=== PATIENT | female | born 1950 | race Caucasian/White ===

== ENCOUNTER 2016-04-15 17:55 | Emergency (ER) | payer OTHER ==
[~2016-04-15] VITALS: Ht 165.1 cm; Wt 77.5 kg
[~2016-04-15 17:55] MED LIST changes: -MULT-506 PO
[2016-04-15 18:20] VITALS: TEMP 37; Ht 165.1 cm; Wt 77.5 kg
[2016-04-15] MEDS ORDERED: ONDANSETRON INJ 2 MG/ML 2 ML VIAL IV STA (18:40)
[2016-04-15] MEDS ORDERED: OPTIRAY 320 IV PRN (18:45)
[2016-04-15 18:57] LABS: BASO % 0.2 %; BASO ABS # 0.02 K/uL (0-0.2); COMPLETE YES; EOS % 1.6 %; HEMATOCRIT 43.3 % (37-47); IG% 0.2 %; LYMPH % 25.5 %; LYMPH ABS # 2.44 K/uL (1.2-3.4); MEAN CORPUSCULAR HEMOGLOBIN 30.5 pg (25-34); MEAN CORPUSCULAR HGB CONC 33.5 g/dl (32-36); MEAN PLATELET VOLUME 9.7 fL (7.4-10.4); MONO % 9.9 %; NEUT % 62.6 %; PLATELET COUNT 314 K/uL (130-400); RED BLOOD COUNT 4.76 M/uL (4.2-5.4); WHITE BLOOD COUNT 9.58 K/uL (4.8-10.8)
[2016-04-15 19:19] LABS: ALT/SGPT 19 U/L (12-78); BLOOD UREA NITROGEN 13 mg/dl (7-18); CALCIUM 10.1 mg/dl (8.5-10.1); CARBON DIOXIDE 27 mmol/L (21-32); CHLORIDE 103 mmol/L (98-107); GLUCOSE 90 mg/dl (70-99); POTASSIUM 3.4 mmol/L (3.5-5.1); SODIUM 140 mmol/L (136-145)
[2016-04-15 19:22] LABS: ALKALINE PHOSPHATASE 90 U/L (45-117); AST/SGOT 19 U/L (15-37)
--- NOTE | 2016-04-15 21:57 | DIAGNOSTIC IMAGING REPORT ---
CT OF THE ABDOMEN AND PELVIS WITH CONTRAST CLINICAL HISTORY: Left-sided abdominal pain. Possible bowel obstruction. Abnormal abdominal series. COMPARISON STUDY: CT of the abdomen and pelvis June 06, 2012 and abdominal series performed earlier today. TECHNIQUE: Following IV administration of 115 mL of Optiray-320, axial images of the abdomen and pelvis were obtained from the lung bases to the proximal femurs. Images were reviewed in the axial, sagittal, and coronal planes. IV contrast was administered without complication. Oral contrast was administered. CT DOSE: 433.32 mGy.cm FINDINGS: No pneumatosis, free air or portal venous gas is present. There are a few small gallstones within the gallbladder. The gallbladder is mildly distended. There is no pericholecystic infiltration. The liver, spleen, adrenal glands, kidneys and pancreas are unremarkable. There is no biliary or pancreatic ductal dilatation. Caliber and wall thickness of small and large bowel are normal. The apparent loop of dilated small bowel on prior abdominal series likely reflected the colon. There is no ascites. There is no lymphadenopathy. 2.7 cm enhancing lesion within the uterine fundus has decreased in size since prior exams. This is consistent with a fibroid. The appendix is not visualized. There is no lymphadenopathy or ascites. No suspicious skeletal lesions are identified. Previous left femoral internal fixation is incidentally noted. IMPRESSION: 1. No acute process within the abdomen or pelvis. No evidence of bowel obstruction. 2. Cholelithiasis with mild gallbladder distention. No pericholecystic infiltration. This could be correlated with right upper quadrant pain. Electronically signed by: Moose Maldonado M.D. 04/15/2016 9:55 PM Dictated Date/Time: 04/15/2016 9:48 PM
[2016-04-15] MEDS ORDERED: MULT-506 PO (23:02)
[2016-04-16 00:05] VITALS: BP 150/70; PULSE 65; O2SAT 97
[2016-04-16 00:19] LABS: URINE APPEARANCE CLEAR (CLEAR); URINE BILIRUBIN NEG (NEG); URINE COLOR YELLOW; URINE NITRITE NEG (NEG); URINE PH 5.5 (4.5-7.5); UROBILINOGEN NEG (NEG); ZZUR CULT IF INDIC CLEAN CATCH NO
[2016-04-16 00:44] LABS: MANUAL MICROSCOPIC REQUIRED? NO; REVIEW REQ? NO; URINE SPECIFIC GRAVITY >= 1.030 (1.000-1.030)
--- NOTE | 2016-04-16 02:52 | EMERGENCY ROOM VISIT NOTE ---
History Report prepared by Yadiel: Tico Cuevas Under the Supervision of: Dr. Jacinto Isaacs M.D. First contact with patient: 18:29 Chief Complaint: GI ASSESSMENT Stated Complaint: POSSIBLE BOWEL OBSTRUCTION Nursing Triage Summary: triage note: pt reports she has had diarrhea x 2 weeks. pt reports she saw her pcp and had blood work and x-rays and was called at approx 1730 and told to come to ed for possible bowel blockage. pt denies nausea or vomitting. History of Present Illness The patient is a 65 year old female who presents to the Emergency Room with complaints of constant episodes of diarrhea for the past two weeks. The patient currently rates her discomfort as a 7/10 in severity. The patient states that she has been having about 15-20 episodes of diarrhea per day for the past two days, and she states that the bowel movements are mostly water. The patient additionally states that she has some abdominal pain and nausea. The patient denies using any antibiotics recently, and she states that she has not been in the hospital recently. The patient additionally states that no one around her has been sick. Pt denies LOC, headache, fevers, chills, diaphoresis, visual changes, neck pain, chest pain, breathing difficulties, nausea, back pain, melena, hematochezia, urinary symptoms, numbness, weakness, lymphadenopathy, rash, or other complaints. Source of History: patient Onset: two weeks ago Position: other (global) Symptom Intensity: 7/10 Quality: other (diarrhea) Timing: constant Associated Symptoms: + abdominal pain, + nausea Review of Systems See HPI for pertinent positives and negatives. A total of ten systems were reviewed and were otherwise negative. Past Medical & Surgical Medical Problems: (1) Asthma (2) Benign hypertension (3) Closed fracture of left hip requiring operative repair (4) Hip fracture, left (5) History of appendectomy Family History Diabetes mellitus Heart disease Hypertension Kidney disease Kidney stones Social History Smoking Status: Never Smoker Alcohol Use: none Marital Status: Housing Status: lives with significant other Occupation Status: employed Current/Historical Medications Scheduled Alendronate/Cholecalciferol (Fosamax+D 70MG/2800 Iu), 1 TABLET PO WK Aspirin Enteric Coated (Ecotrin Or Generic), 81 MG PO QPM Cholecalciferol (Vitamin D3), 1 TAB PO QAM Escitalopram Oxalate (Lexapro), 5 MG PO QAM Esomeprazole Magnesium (Nexium), 40 MG PO QAM Fluticasone Prop/Salmeterol (Advair Diskus 500-50 Mcg/Dose), 1 PUFF INH BID Furosemide (Lasix), 20 MG PO QAM Levocetirizine Dihydrochloride (Levocetirizine Dihydrochl), 5 MG PO QPM Montelukast (Singulair *), 10 MG PO HS Multivitamin (Multivitamin), 1 TAB PO DAILY Potassium Chloride (K-Tab), 1 TAB PO QAM Theophylline Cont Rel (Uniphyl Controlled Rel), 400 MG PO BID Scheduled PRN Albuterol (Ventolin), 2 PUFFS INH QID PRN for Shortness of Breath Albuterol Soln (Proventil 0.083% 2.5MG/3ML), 2.5 MG INH for asthma Fluticasone Propionate (Flonase Nasal [place]), 2 SPRAYS RENÉE DAILY PRN for PRN Allergies Coded Allergies: Erythromycin (Verified Allergy, Mild, RASH, 04/15/16) Milk Protein Extract (Verified Allergy, Mild, RASH, 04/15/16) Tiotropium (Verified Allergy, Mild, RASH, 04/15/16) Amoxicillin (Verified Allergy, Unknown, GI UPSET, 04/15/16) Clavulanic Acid (Verified Allergy, Unknown, AUGMENTIN, 04/15/16) Ciprofloxacin (Verified Adverse Reaction, Mild, vomiting, 04/15/16) Quinolones (Verified Adverse Reaction, Mild, CIPRO-VOMITING, 04/15/16) Physical Exam Vital Signs Date Time Temp Pulse Resp B/P Pulse Ox O2 Delivery O2 Flow Rate FiO2 04/16/16 00:05 65 16 150/70 97 04/15/16 22:20 66 18 154/76 95 Room Air 04/15/16 20:20 66 16 164/84 98 04/15/16 19:31 72 04/15/16 18:20 37.0 85 18 155/89 97 Room Air Physical Exam GENERAL: Awake, alert, well-appearing, in no distress HENT: Normocephalic, atraumatic. Oropharynx unremarkable. EYES: Normal conjunctiva. Sclera non-icteric. NECK: Supple. No nuchal rigidity. FROM. No JVD. RESPIRATORY: Clear to auscultation. CARDIAC: Regular rate, normal rhythm. Extremities warm and well perfused. Pulses equal. ABDOMEN: Significant left upper quadrant tenderness with guarding and rebound. Soft, non-distended. No rebound or guarding. No masses. RECTAL: Deferred. MUSCULOSKELETAL: Chest examination reveals no tenderness. The back is symmetrical on inspection without obvious abnormality. There is no CVA tenderness to palpation. No joint edema. LOWER EXTREMITIES: Calves are equal size bilaterally and non-tender. No edema. No discoloration. NEURO: Normal sensorium. No sensory or motor deficits noted. SKIN: No rash or jaundice noted. Medical Decision & Procedures ER Provider Diagnostic Interpretation: CT scan results as stated below per my review and radiologist interpretation CT OF THE ABDOMEN AND PELVIS WITH CONTRAST CLINICAL HISTORY: Left-sided abdominal pain. Possible bowel obstruction. Abnormal abdominal series. COMPARISON STUDY: CT of the abdomen and pelvis June 06, 2012 and abdominal series performed earlier today. TECHNIQUE: Following IV administration of 115 mL of Optiray-320, axial images of the abdomen and pelvis were obtained from the lung bases to the proximal femurs. Images were reviewed in the axial, sagittal, and coronal planes. IV contrast was administered without complication. Oral contrast was administered. CT DOSE: 433.32 mGy.cm FINDINGS: No pneumatosis, free air or portal venous gas is present. There are a few small gallstones within the gallbladder. The gallbladder is mildly distended. There is no pericholecystic infiltration. The liver, spleen, adrenal glands, kidneys and pancreas are unremarkable. There is no biliary or pancreatic ductal dilatation. Caliber and wall thickness of small and large bowel are normal. The apparent loop of dilated small bowel on prior abdominal series likely reflected the colon. There is no ascites. There is no lymphadenopathy. 2.7 cm enhancing lesion within the uterine fundus has decreased in size since prior exams. This is consistent with a fibroid. The appendix is not visualized. There is no lymphadenopathy or ascites. No suspicious skeletal lesions are identified. Previous left femoral internal fixation is incidentally noted. IMPRESSION: 1. No acute process within the abdomen or pelvis. No evidence of bowel obstruction. 2. Cholelithiasis with mild gallbladder distention. No pericholecystic infiltration. This could be correlated with right upper quadrant pain. Electronically signed by: Moose Maldonado M.D. 04/15/2016 9:55 PM Dictated Date/Time: 04/15/2016 9:48 PM Laboratory Results 04/15/16 18:40 Red Blood Count 4.76, Mean Corpuscular Volume 91.0, Mean Corpuscular Hemoglobin 30.5, Mean Corpuscular Hemoglobin Concent 33.5, Mean Platelet Volume 9.7, Neutrophils (%) (Auto) 62.6, Lymphocytes (%) (Auto) 25.5, Monocytes (%) (Auto) 9.9, Eosinophils (%) (Auto) 1.6, Basophils (%) (Auto) 0.2, Neutrophils # (Auto) 6.00, Lymphocytes # (Auto) 2.44, Monocytes # (Auto) 0.95, Eosinophils # (Auto) 0.15, Basophils # (Auto) 0.02 04/15/16 18:40 Test 04/15/16 18:40 04/15/16 23:40 White Blood Count 9.58 K/uL (4.8-10.8) Red Blood Count 4.76 M/uL (4.2-5.4) Hemoglobin 14.5 g/dL (12.0-16.0) Hematocrit 43.3 % (37-47) Mean Corpuscular Volume 91.0 fL (80-100) Mean Corpuscular Hemoglobin 30.5 pg (25-34) Mean Corpuscular Hemoglobin Concent 33.5 g/dl (32-36) Platelet Count 314 K/uL (130-400) Mean Platelet Volume 9.7 fL (7.4-10.4) Neutrophils (%) (Auto) 62.6 % Lymphocytes (%) (Auto) 25.5 % Monocytes (%) (Auto) 9.9 % Eosinophils (%) (Auto) 1.6 % Basophils (%) (Auto) 0.2 % Neutrophils # (Auto) 6.00 K/uL (1.4-6.5) Lymphocytes # (Auto) 2.44 K/uL (1.2-3.4) Monocytes # (Auto) 0.95 K/uL (0.11-0.59) Eosinophils # (Auto) 0.15 K/uL (0-0.5) Basophils # (Auto) 0.02 K/uL (0-0.2) RDW Standard Deviation 43.6 fL (36.4-46.3) RDW Coefficient of Variation 13.2 % (11.5-14.5) Immature Granulocyte % (Auto) 0.2 % Immature Granulocyte # (Auto) 0.02 K/uL (0.00-0.02) Anion Gap 10.0 mmol/L (3-11) Est Creatinine Clear Calc Drug Dose 51.8 ml/min Estimated GFR () 60.6 Estimated GFR (Non- 52.3 BUN/Creatinine Ratio 12.0 (10-20) Calcium Level 10.1 mg/dl (8.5-10.1) Total Bilirubin 0.3 mg/dl (0.2-1) Direct Bilirubin < 0.1 mg/dl (0-0.2) Aspartate Amino Transf (AST/SGOT) 19 U/L (15-37) Alanine Aminotransferase (ALT/SGPT) 19 U/L (12-78) Alkaline Phosphatase 90 U/L (45-117) Total Protein 8.0 gm/dl (6.4-8.2) Albumin 4.1 gm/dl (3.4-5.0) Lipase 97 U/L (73-393) Urine Color YELLOW Urine Appearance CLEAR (CLEAR) Urine pH 5.5 (4.5-7.5) Urine Specific [place] >= 1.030 (1.000-1.030) Urine Protein NEG (NEG) Urine Glucose (UA) NEG (NEG) Urine Ketones NEG (NEG) Urine Occult Blood TRACE (NEG) Urine Nitrite NEG (NEG) Urine Bilirubin NEG (NEG) Urine Urobilinogen NEG (NEG) Urine Leukocyte Esterase NEG (NEG) Urine WBC (Auto) 1-5 /hpf (0-5) Urine RBC (Auto) 5-10 /hpf (0-4) Urine Hyaline Casts (Auto) 0 /lpf (0-5) Urine Epithelial Cells (Auto) 5-10 /lpf (0-5) Urine Bacteria (Auto) NEG (NEG) Date/Time Source Procedure Growth Status 04/15/16 20:30 Stool C.difficile Toxin B Gene (PCR) - Final No C. difficile toxin B gene detected Complete Laboratory results reviewed by me Medications Administered Medications (Trade) Dose Ordered Sig/Trent Route Start Time Stop Time Status Last Admin Dose Admin Ondansetron HCl (Zofran Inj) 4 mg NOW STAT IV 04/15/16 18:40 04/15/16 18:42 DC 1/19/17 19:20 4 MG ED Course 1835: The patient was evaluated in room C1. A complete history and physical exam was performed. 0: Zofran 4mg IV 0: I reevaluated the patient, and she was feeling better 8: I reevaluated the patient. Discussed results and discharge instructions: She verbalized understanding and agreement. The patient is ready for discharge. Medical Decision Triage Nursing notes reviewed. The patient's presentation and history were concerning for abdominal pain and possible obstruction seen on earlier x-ray. Etiologies such as appendicitis, diverticulitis, obstruction, inflammatory bowel disease, renal colic, PUD, biliary pathology, pancreatitis, mesenteric ischemia, aortic pathology, infections, genitourinary, UTI, perforated viscus, as well as others were entertained. The patient was evaluated. She declined analgesia. The patient was given Zofran and prepped for CT imaging. Her CBC, chemistry panel, LFTs and lipase were unremarkable. Urine dip was unremarkable. Stool samples were obtained. C. difficile was negative. Culture is pending. The patient and on CT imaging and this revealed no acute findings in the abdomen or pelvis. The patient was informed. I discussed conservative management with her. She agreed. She is going to follow up with her primary office tomorrow. The patient has a diarrheal illness and left- sided abdominal pain. If she worsens in any way she will be back to the emergency room for reevaluation. By the evaluation outlined above other emergent etiologies such as those listed in the differential, as well as others, were deemed relatively unlikely. The patient was informed about the findings as listed above. All questions were answered and she was pleased with the treatment. Return instructions were outlined and the patient was discharged in stable condition. The patient was referred to her PCP for follow-up tomorrow for a recheck of the current condition. The chart was completed utilizing [employer] Speech voice recognition software. Grammatical errors, random word insertions, pronoun errors, and incomplete sentences are an occasional consequence of this system due to software limitations, ambient noise, and hardware issues. Any formal questions or concerns about the content, text, or information contained within the body of this dictation should be directly addressed to the physician for clarification. Impression Primary Impression: Diarrhea Additional Impression: LUQ abdominal pain Scribe Attestation The scribe's documentation has been prepared under my direction and personally reviewed by me in its entirety. I confirm that the note above accurately reflects all work, treatment, procedures, and medical decision making performed by me. Departure Information Dispostion Home / Self-Care Referrals Sandro Morley PA-C (PCP) Forms HOME CARE DOCUMENTATION FORM, IMPORTANT VISIT INFORMATION Patient Instructions My [facility] Additional Instructions Imodium: This is available [id number]. Start out with two pills then take one after each loose bowel movement. You can take a maximum of 8 in one day. Only used as needed. Stop if you have bloody stools. Ibuprofen(Motrin, Advil) may be used for fever or pain. Use 600mg every six hours as needed. Take with food. Avoid using more than 2400mg in a 24 hour period. Do not use 2400mg per day for more than three consecutive days without physician direction. Prolonged inappropriate use can lead to stomach upset or ulcers. (AND/OR) Acetaminophen(Tylenol) may be used for fever or pain. Use 1000mg every six hours as needed. Avoid using more than 4000mg in a 24 hour period. Rest and drink plenty of fluids as tolerated. Slow sips of water or sports drinks are recommended instead of large amounts all at once. Continue current medications. Once your stomach is settled start with a clear liquid diet (jello, soup broth, etc.) and then advance as tolerated. You should avoid full, heavy meals for about 24 hrs from the time your symptoms resolved. Return to the ER immediately for worsening or persistent abdominal pain, vomiting, fevers, chest pains, difficulty breathing, black or bloody stools, worsening of your condition, or as needed. Follow up with your primary provider tomorrow for a recheck of your current condition. Problem Qualifiers
== END 2016-04-16 00:07 | disposition home or self-care (01) ==
LOC: C.EDB 17:56 → C.EDC 04-16 00:07
DX: R19.7 Diarrhea, unspecified (principal); J45.909 Unspecified asthma, uncomplicated; I10 Essential (primary) hypertension; Z83.3 Family history of diabetes mellitus; Z82.49 Family history of ischemic heart disease and other diseases of the circulatory system; Z79.82 Long term (current) use of aspirin; Z79.899 Other long term (current) drug therapy; R07.9 Chest pain, unspecified; K56.60 Unspecified intestinal obstruction

== ENCOUNTER → 2016-04-15 | Outpatient (CLI) | payer OTHER ==
[~2016-04-15] MED LIST: ADVIN50050 INH; ALBU0.08 INH; ALBUAER2 INH; ASPI81TA21 PO; CHOL1000 PO; DMX250; ESCI5TAB PO; FLUT50SP14 NAE; FSMD/70 PO; FURO-85 PO; IRON PO; LEVO-14 PO; MULT-506 PO; NXM/40 PO; POTA1TAB97 PO; PRED1SUS3; PRED1SUS3 OPR; SNG10 PO; TBROPO; TEMA15CA4 PO; THEO400T9 PO
[2016-04-15 15:24] LABS: BASO % 0.3 %; BASO ABS # 0.02 K/uL (0-0.2); COMPLETE YES; EOS % 2.1 %; IG% 0.1 %; LYMPH % 28.1 %; LYMPH ABS # 2.18 K/uL (1.2-3.4); MEAN CELL VOLUME 91.1 fL (80-100); MEAN CORPUSCULAR HEMOGLOBIN 30.3 pg (25-34); MEAN CORPUSCULAR HGB CONC 33.3 g/dl (32-36); MEAN PLATELET VOLUME 9.8 fL (7.4-10.4); MONO % 9.5 %; NEUT % 59.9 %; PLATELET COUNT 304 K/uL (130-400); RED BLOOD COUNT 4.72 M/uL (4.2-5.4); WHITE BLOOD COUNT 7.76 K/uL (4.8-10.8)
--- NOTE | 2016-04-15 15:29 | DIAGNOSTIC IMAGING REPORT ---
CHEST AND ABDOMEN 2 VIEWS HISTORY: Atypical chest pain. Left-sided abdominal pain. COMPARISON: Chest 02/09/2016. FINDINGS: The lungs are hyperexpanded with apical predominant emphysematous changes. No pleural effusions. No pneumothorax. The heart is normal in size. Mild loss of height at T7 remains unchanged. No pneumoperitoneum. No pneumatosis. Internal fixation of an old left hip fracture. There is a dilated loop of small bowel within the left side the abdomen. This measures up to 4.5 cm. There are few small fluid levels within the proximal colon. Remaining colon is decompressed. There are few distal loops of small bowel within the deep pelvis which are decompressed. IMPRESSION: Dilated small bowel within the left side of the abdomen. This likely represents a small bowel obstruction. Electronically signed by: Doron Richey M.D. 04/15/2016 3:27 PM Dictated Date/Time: 04/15/2016 3:21 PM
[2016-04-15 16:06] LABS: ALT/SGPT 19 U/L (12-78); BLOOD UREA NITROGEN 13 mg/dl (7-18); BUN/CREATININE RATIO 12.9 (10-20); CALCIUM 9.9 mg/dl (8.5-10.1); CARBON DIOXIDE 25 mmol/L (21-32); CHLORIDE 104 mmol/L (98-107); GLUCOSE 82 mg/dl (70-99); POTASSIUM 3.5 mmol/L (3.5-5.1); SODIUM 140 mmol/L (136-145)
[2016-04-15 16:17] LABS: ALKALINE PHOSPHATASE 81 U/L (45-117); AST/SGOT 19 U/L (15-37)
== END | disposition home or self-care (01) ==
LOC: C.RAD1850 14:36
PROVIDERS: ATTEND Internal Medicine Pulmonary Disease
DX: R07.9 Chest pain, unspecified (principal); R10.9 Unspecified abdominal pain; K56.60 Unspecified intestinal obstruction

== ENCOUNTER → 2016-06-18 | Outpatient (CLI) | payer OTHER ==
[~2016-06-18] MED LIST changes: -DMX250; -IRON PO; +MULT-506 PO; -PRED1SUS3; -PRED1SUS3 OPR; +SINCALIDE INJ 1.5 MCG in SODIUM CHLORIDE 0.9% 100ML 100 ML IV ONE; -TBROPO; -TEMA15CA4 PO
--- NOTE | 2016-06-18 15:06 | DIAGNOSTIC IMAGING REPORT ---
NUCLEAR HEPATOBILIARY SCAN WITH EJECTION FRACTION IMAGING CLINICAL HISTORY: Right upper quadrant abdominal pain. Diarrhea. COMPARISON STUDY: Abdominal CT dated 04/15/2016.. TECHNIQUE: Dynamic images of the liver and anterior abdomen were obtained every 5 minutes for a total of 60 minutes following the IV administration of 5.5mCi of technetium 99m Choletec. 1.5 mcg of sincalide was then injected with additional images acquired every 5 minutes for 45 minutes to calculate the gallbladder ejection fraction. FINDINGS: The hepatobiliary scan shows prompt and homogeneous hepatic uptake. There is visualized activity within the intra and extrahepatic biliary tree at 15 minutes, and within the gallbladder at 25 minutes. There is normal biliary to bowel transit, with small bowel visualized by 30 minutes. On the sincalide imaging, the gallbladder ejection fraction was measured at 78%. IMPRESSION: 1. Unremarkable nuclear hepatobiliary scan. There is no scintigraphic evidence of cholecystitis. 2. The gallbladder ejection fraction measure 78% which is normal. Electronically signed by: Tim Cuenca M.D. 06/18/2016 3:05 PM Dictated Date/Time: 06/18/2016 3:04 PM
== END | disposition home or self-care (01) ==
LOC: C.NUCL 12:34
PROVIDERS: ATTEND Physician Assistant
DX: R10.9 Unspecified abdominal pain (principal); R19.7 Diarrhea, unspecified

== ENCOUNTER → 2017-01-06 | Outpatient (CLI) | payer OTHER ==
[~2017-01-06] MED LIST changes: -SINCALIDE INJ 1.5 MCG in SODIUM CHLORIDE 0.9% 100ML 100 ML IV ONE
[2017-01-06 09:38] LABS: BASO % 0.7 %; BASO ABS # 0.04 K/uL (0-0.2); COMPLETE YES; EOS % 11.4 %; HEMATOCRIT 42.4 % (37-47); IG% 0.2 %; LYMPH % 32.6 %; MEAN CORPUSCULAR HEMOGLOBIN 29.8 pg (25-34); MEAN CORPUSCULAR HGB CONC 32.8 g/dl (32-36); MEAN PLATELET VOLUME 10.4 fL (7.4-10.4); MONO % 9.9 %; NEUT % 45.2 %; PLATELET COUNT 221 K/uL (130-400); RED BLOOD COUNT 4.66 M/uL (4.2-5.4); WHITE BLOOD COUNT 6.14 K/uL (4.8-10.8)
[2017-01-06 09:48] LABS: ALT/SGPT 18 U/L (12-78); AST/SGOT 19 U/L (15-37); BLOOD UREA NITROGEN 24 mg/dl (7-18); BUN/CREATININE RATIO 25.1 (10-20); CALCIUM 9.6 mg/dl (8.5-10.1); CARBON DIOXIDE 31 mmol/L (21-32); CHLORIDE 106 mmol/L (98-107); CREATININE 0.94 mg/dl (0.60-1.20); GLUCOSE 108 mg/dl (70-99); MAGNESIUM 2.3 mg/dl (1.8-2.4); POTASSIUM 3.9 mmol/L (3.5-5.1); SODIUM 141 mmol/L (136-145)
[2017-01-06 09:58] LABS: ALKALINE PHOSPHATASE 106 U/L (45-117)
== END | disposition home or self-care (01) ==
LOC: C.LAB 08:27
PROVIDERS: ATTEND Physician Assistant
DX: D86.9 Sarcoidosis, unspecified (principal)

== ENCOUNTER → 2017-07-04 | Outpatient (CLI) | payer OTHER ==
[~2017-07-04] MED LIST changes: +ASPI-319 PO; -ASPI81TA21 PO; -THEO400T9 PO; +UNPSR400 PO
[2017-07-04 13:21] LABS: BASO % 1.3 %; BASO ABS # 0.06 K/uL (0-0.2); EOS ABS # 0.36 K/uL (0-0.5); HEMATOCRIT 43.5 % (37-47); HEMOGLOBIN 14.4 g/dL (12.0-16.0); LYMPH % 41.1 %; LYMPH ABS # 1.85 K/uL (1.2-3.4); MEAN CELL VOLUME 90.6 fL (80-100); MEAN CORPUSCULAR HGB CONC 33.1 g/dl (32-36); MEAN PLATELET VOLUME 9.3 fL (7.4-10.4); MONO % 8.9 %; NEUT % 40.7 %; NEUT ABS # 1.83 K/uL (1.4-6.5); PLATELET COUNT 257 K/uL (130-400); RED CELL DISTRIBUTION WIDTH CV 12.8 % (11.5-14.5)
--- NOTE | 2017-07-04 13:31 | DIAGNOSTIC IMAGING REPORT ---
L SHOULDER MIN 2 VIEWS ROUTINE HISTORY: 66 years-old Female M25.512 Shoulder pain, left. Acute left shoulder brain COMPARISON: Chest radiographs 07/04/2017 TECHNIQUE: 3 views of the left shoulder FINDINGS: Bones appear mildly demineralized. Mild glenohumeral and moderate AC joint degenerative changes. No acute fracture or dislocation. IMPRESSION: No acute fracture or dislocation. The above report was generated using voice recognition software. It may contain grammatical, syntax or spelling errors. Electronically signed by: Silvino Kumari M.D. 07/04/2017 1:29 PM Dictated Date/Time: 07/04/2017 1:27 PM
--- NOTE | 2017-07-04 13:33 | DIAGNOSTIC IMAGING REPORT ---
C-SPINE ROUTINE 4 OR 5 VIEWS HISTORY: 66 years-old Female M25.512 Shoulder pain, [id number] acute left shoulder and neck pain COMPARISON: Left shoulder radiographs of same day TECHNIQUE: 5 views of the cervical spine FINDINGS: Moderate intervertebral disc space narrowing at C5-C6 with associated endplate spurring. Mild to moderate multilevel facet arthrosis. Degenerative changes result in moderate left-sided bony foraminal narrowing on the left at C6-C7. No acute fracture or subluxation identified. Imaged lung apices appear clear. No prevertebral soft tissue swelling. IMPRESSION: 1. No acute fracture or subluxation. 2. Degenerative changes as above. The above report was generated using voice recognition software. It may contain grammatical, syntax or spelling errors. Electronically signed by: Silvino Kumari M.D. 07/04/2017 1:32 PM Dictated Date/Time: 07/04/2017 1:30 PM
--- NOTE | 2017-07-04 13:43 | DIAGNOSTIC IMAGING REPORT ---
CHEST 2 VIEWS ROUTINE HISTORY: Dyspnea. COMPARISON: Chest 01/14/1717. FINDINGS: A few linear scarlike densities at the left lung base persist. Otherwise, the lungs are clear. No pleural effusions. No pneumothorax. The heart is normal in size. Stable mild anterior wedging at T7. IMPRESSION: No significant change compared to the prior study. No acute process. Electronically signed by: Doron Richey M.D. 07/04/2017 1:42 PM Dictated Date/Time: 07/04/2017 1:40 PM
[2017-07-04 14:53] LABS: ALBUMIN 3.8 gm/dl (3.4-5.0); ALKALINE PHOSPHATASE 99 U/L (45-117); ALT/SGPT 15 U/L (12-78); AST/SGOT 11 U/L (15-37); BLOOD UREA NITROGEN 19 mg/dl (7-18); CALCIUM 9.9 mg/dl (8.5-10.1); CARBON DIOXIDE 29 mmol/L (21-32); CREATININE 1.06 mg/dl (0.60-1.20); GLUCOSE 92 mg/dl (70-99); POTASSIUM 4.2 mmol/L (3.5-5.1); SODIUM 139 mmol/L (136-145); TOTAL PROTEIN 7.9 gm/dl (6.4-8.2)
[2017-07-04 15:02] LABS: TRANSFERRIN 238 mg/dl (200-360)
== END | disposition home or self-care (01) ==
LOC: C.RAD 12:06
PROVIDERS: ATTEND Physician Assistant
DX: M25.512 Pain in left shoulder (principal); R06.00 Dyspnea, unspecified; R00.2 Palpitations

== ENCOUNTER → 2017-07-18 | Outpatient (CLI) | payer OTHER ==
--- NOTE | 2017-07-18 12:58 | DIAGNOSTIC IMAGING REPORT ---
MRI OF THE CERVICAL SPINE WITHOUT CONTRAST CLINICAL HISTORY: Neck and left arm pain. Left arm weakness. COMPARISON: MRI of the cervical spine December 18, 2013. Cervical spine radiographs July 04, 2017. TECHNIQUE: Utilizing a 1.5 Shruthi magnet and dedicated coil, multiplanar, multiecho imaging of the cervical spine was performed without IV contrast. FINDINGS: Alignment of the cervical spine is anatomic. Vertebral body heights are maintained. There is no marrow edema or marrow replacement. No intracanalicular mass or fluid collection is present. Cervical cord signal and caliber are normal. Paravertebral soft tissues are unremarkable. Mild multilevel disc space narrowing and facet arthrosis is noted. C2-C3: The central canal and the neural foramen are patent. C3-C4: There is minimal posterior disc osteophyte complex. The central canal and neural foramen are patent. C4-C5: There is minimal posterior disc osteophyte complex. Central canal and neural foramen are patent. C5-C6: There is mild disc space narrowing with mild posterior osteophyte complex that effaces the ventral thecal sac. This is unchanged since MRI of December 18, 2013. The right neural foramen is patent. There is mild to moderate narrowing of the left neural foramen. C6-C7: Posterior disc osteophyte complex effaces the anterior thecal sac. There is mild narrowing of the central canal. Mild to moderate left neural foraminal narrowing is noted. The right neural foramen is patent. C7-T1: Central canal neural foramen are patent. IMPRESSION: 1. Mild multilevel degenerative disc disease and facet arthrosis of the cervical spine, not significantly changed exam of December 18, 2013. 2. Mild central canal narrowing at C5-C6 and C6-C7. 3. Mild to moderate left neural foraminal narrowing at C5-C6 and C6-C7. Electronically signed by: Moose Maldonado M.D. 07/18/2017 12:56 PM Dictated Date/Time: 07/18/2017 12:50 PM
== END | disposition home or self-care (01) ==
LOC: C.MRI 11:06
PROVIDERS: ATTEND Physician Assistant
DX: M62.58 Muscle wasting and atrophy, not elsewhere classified, other site (principal); M50.30 Other cervical disc degeneration, unspecified cervical region; R29.898 Other symptoms and signs involving the musculoskeletal system; M25.512 Pain in left shoulder

== ENCOUNTER → 2017-08-10 | Day surgery (SDC) | payer OTHER ==
[~2017-08-10] VITALS: Ht 165.1 cm; Wt 80.0 kg
[~2017-08-10] MED LIST changes: +ACETAMINOPHEN 325 MG TAB PO PRN; +ATOR-22 PO; +ATROPINE SULFATE 0.1 MG/ML 5ML SYR IV PRN; +CARV3.122 PO; +DC ALL ANTICOAGULANTS ONE; +FENTANYL CITRATE INJ 50 MCG/1 ML 2 ML VIAL ONE; +HEPARIN SOD (PORCINE) 1000 UNIT/ML 10 ML VIAL ONE; +LIDOCAINE HCL 1% 20 ML VIAL ONE; +MIDAZOLAM HCL 1 MG/ML 2ML VIAL ONE; +MISCCAP80 PO; +NITROGLYCERIN/D5W 100MCG/ML 20ML SYR ONE; +NUTRCAP PO; +NiCARDipine HCL INJ 2.5 MG/ML 10 ML AMP ONE; +ONDANSETRON INJ 2 MG/ML 2 ML VIAL IV PRN; +PANT40TA PO; +SODIUM CHLORIDE 0.9% 1000ML 1,000 ML IV SCH; +SODIUM CHLORIDE 0.9% 1000ML 250 ML IV PRN; +[UNRECOGNIZED DRUG - CODE] PO
[2017-08-10 08:48] VITALS: BP 106/90; PULSE 67; TEMP 36.7; O2SAT 96; Ht 165.1 cm; Wt 80.0 kg
--- NOTE | 2017-08-10 10:29 | History & Physical Bridge Note ---
H&P Re-Evaluation Bridge Note: I have examined the patient, reviewed the History & Physical and in the interval since the performance of the History & Physical I have noted the following changes of clinical significance: No changes noted
--- NOTE | 2017-08-10 10:30 | Post Sedation Assessment ---
Post Sedation Assessment General Date of Sedation August 10, 2017. Vital Signs: Vital Signs Past 12 Hours Date Time Temp Pulse Resp B/P (MAP) Pulse Ox O2 Delivery O2 Flow Rate FiO2 08/10/17 10:25 65 18 173/87 (115) 96 Room Air 08/10/17 10:20 64 18 147/59 (88) 96 Room Air 08/10/17 08:48 36.7 67 18 106/90 (95) 96 Room Air Post Procedure Recovery Score Activity: (2) Moves 4 extremities * Respiration: (2) Deep breath/cough Circulation: (2) +/-20% PreAnes Value Consciousness: (2) Fully Awake Oxygen Saturation: (2) > 92% On Room Air Post Anesthesia Score: 10 Discharge Sedation Level of Care: Fast Track Phase II Post Sedation Plan On clinical assessment, the patient appears to have tolerated the sedation without complications. Patient is recovering as anticipated. Patient will continue to be monitored by nursing and may be discharged when sedation discharge criteria are met per below protocol. Upon Completions of procedure and additional 15 minutes continue every 5 minute vital signs and the P.A.R. score; then discharge to a Phase I or Fast Track to Phase II per the following guidelines: * Discharge Patient to appropriate Phase II area if PAR is 8 or greater or return to pre- procedure baseline. The post - procedure orders will be as directed. * If PAR score is less than 8 or not return to pre-procedure baseline then patient will follow Phase I monitoring till PAR is reached for Phase II. The Phase I may be done in procedure room or may call to secure a Phase I area. * If naloxone or flumazenil are used for reversal, hold in Phase I for an additional 60 -120 minutes before discharge to Phase II. Please call the Sedation Physician to re-evaluate and complete post-note for discharge to Phase II area. Do NOT discharge from procedure sedation or Phase 1 until post- sedation evaluation note is complete by procedure /sedation MD Sedation Discharge Instructions to be given to the patient at discharge to home.
--- NOTE | 2017-08-10 10:30 | Pre Sedation Assessment ---
Pre Sedation Assessment General Date of Sedation: August 10, 2017. Vital Signs Past 12 Hours Date Time Temp Pulse Resp B/P (MAP) Pulse Ox O2 Delivery O2 Flow Rate FiO2 08/10/17 10:25 65 18 173/87 (115) 96 Room Air 08/10/17 10:20 64 18 147/59 (88) 96 Room Air 08/10/17 08:48 36.7 67 18 106/90 (95) 96 Room Air Review Cardiovascular: regular rate, rhythm Lungs: lungs clear Pre-Sedation Airway Assessment Smoking Status: Never Smoker Hx of Sleep Apnea: No Hx of difficult intubation: No Short Thick Neck: No Thyro-mental Distance: > 3 Finger Breadths Oral Cavity: Dentures Mallampati Classification: Class II ASA Classification: Class II NPO Status Date of Last Intake of Fluids: August 09, 2017 Time of Last Intake of Fluids: 1899 Date of Last Intake of Solids: August 09, 2017 Time of Last Intake of Solids: 1899 Procedure Planning Contraindications for Sedation: None Current Medications Reviewed: Yes Notes The planned sedation has been discussed with the patient. Informed Consent was obtained. I have identified the patient, determined the appropriateness of sedation and have assessed the patient immediately prior to the procedure. All medicine(s) and interventions are by my order.
--- NOTE | 2017-08-10 10:34 | Cardiac Catheterization ---
Procedure Note Procedure Date August 10, 2017. Pre-Procedure Diagnosis Angina AUC Score 7 Post-Procedure Diagnosis Normal Coronary Arteries Procedure(s) Performed Coronary Angiography, Left Heart Cath, LV Angiography Wash Operator Dr. Seymour Golf Club Manager(s) None Estimated Blood Loss None Medication(s) Heparin, Versed, Lidocaine 1% Summary of Findings See dictated report Hemodynamics Rest Ao: 148/61 Final Ao: 156/53 LV: 152/13 Recommendations Medical therapy and/or Counseling Specimens None Radiation Exposure (mGy) 641 Contrast (mls) 83 Procedural Complication(s) None Disposition Aluminum Welder Holding/Recovery ACC Data Cardiac Status Clinical evaluation leading to the procedure CAD Presntation: Stable angina Anginal Classification: CCS I Heart Failure: No Cardiogenic Shock w/in 24Hrs: No Cardiac Arrest w/in 24Hrs: No Imaging studies past 6 months: No Stress studies past 6 months: No Coronary Anatomy Dominant: Right Left Main (% Stenosis): Normal LAD (% Stenosis): Normal Circumflex (% Stenosis): Normal RCA (% Stenosis): Normal Left Ventricular Angiography EF (%): 60% Mitral Regurgitation: None Diagnostic Physician's Name: Joe Seymour, Closure Device Percutaneous Entry Location: Femoral Closure Device: Mynx Recommendations: Medical therapy and/or Counseling
--- NOTE | 2017-08-10 10:39 | Procedure Note ---
Cardiac Cath Report Procedure: 1. Left heart catheterization 2. Coronary angiography 3. Left ventriculogram History: This is a 66-year-old female who has been experiencing dyspnea with activity and has a strong family history of coronary artery disease. Procedure summary: The patient was seen and evaluated in the holding area the Day Spa Manager. After informed consent was obtained patient was taken to the cardiac catheterization lab where she was prepped and draped in the usual manner for right transradial approach. Unfortunately, we were not able to access the right radial artery and the procedure was switched to a right transfemoral. [place] was obtained using a retrograde Salinger technique from the right femoral artery. Preformed 5 Tamazight diagnostic catheters were utilized for the coronary angiograms. A 5 Tamazight pigtail catheter was utilized for the left heart pressures and left ventriculogram. Following the procedure the minx device was utilized to close the arterial site. Patient was then taken to the holding area the Day Spa Manager in stable condition. Coronary angiography: Selective injections of the left coronary artery reveal the left main trunk to be widely patent smooth appearance and within normal limits. The LAD gives off a single large diagonal branch. The LAD system is smooth in appearance widely patent and within normal limits. The left circumflex artery consists principally of a large lateral marginal branch. The left circumflex artery is smooth in appearance widely patent and within normal limits. Selective injections of the right coronary artery revealed to be large and dominant. Right coronary artery is smooth in appearance widely patent and within normal limits. Left ventriculogram: The left ventricle is of normal size with normal systolic function. The mitral valve is competent. The LVEDP is 13. The aortic root and ascending aorta have normal morphology. The estimated left ventricular ejection fraction is 60%. Summary: The patient has widely patent and normal coronary arteries with normal LV function. Recommendations: Medical therapy and counseling.
--- NOTE | 2017-08-10 10:41 | Discharge Instructions ---
Discharge Instructions Procedure Procedure Date: August 10, 2017. Reason for Visit: Chest Pain,Odom Main To Do. Discharge Discharge Date: August 10, 2017. Discharge Diagnosis: Normal coronaries Last Recorded Wt (Kilograms): 80 Anesthesia Post Anesthesia Instructions: If you have had General Anesthesia or IV Sedation: * Do not drive today. * Resume driving when surgeon permits. * Do not make important decisions or sign legal documents today. * Call surgeon for: 1. Temperature elevations greater than 101 degrees F. 2. Uncontrollable pain. 3. Excessive bleeding. 4. Persistent nausea and vomiting. 5. Medication intolerance (nausea, vomiting or rash). * For nausea and vomiting use only clear liquids such as: tea, soda, bouillon until nausea subsides, then gradually increase diet as tolerated. * If you have any concerns or questions, call your surgeon's office. If physician is unavailable and it is an emergency, call 911 or go to the nearest emergency room. Instructions Activity Recommendations: limitations Recommended Home Diet: resume previous diet Allergies: Coded Allergies: Erythromycin (Verified Allergy, Mild, RASH, 04/15/16) Milk Protein Extract (Verified Allergy, Mild, RASH, 04/15/16) Tiotropium (Verified Allergy, Mild, RASH, 04/15/16) Amoxicillin (Verified Allergy, Unknown, GI UPSET, 04/15/16) Clavulanic Acid (Verified Allergy, Unknown, AUGMENTIN, 04/15/16) Ciprofloxacin (Verified Adverse Reaction, Mild, vomiting, 04/15/16) Quinolones (Verified Adverse Reaction, Mild, CIPRO-VOMITING, 04/15/16) Provider Instructions ACTIVITY RECOMMENDATIONS: It is common to feel weak and fatigue for a few days. * Do not drive or operate any motorized equipment for the next three days. * Limit stair usage (2 or 3 trips a day only) for the next three days. * Do not lift anything heavier than 10 pounds for the next three days. * Do not engage in vigorous exercise or any sports for the next five days. * You may shower the day after your procedure, but do not immerse the area for three days. Cleanse the site gently with soap and water. SPECIAL CARE INSTRUCTIONS: * You may replace the pressure dressing or band-aid the morning after the procedure. * After your procedure, it is normal to have a small bruise or small lump at the site. Examine your site daily for any change in the bruise or lump, redness, swelling, drainage or numbness. Notify your doctor if any change. BLEEDING: * If there is a small amount of bleeding at the site, lie down and apply firm pressure with a clean cloth for ten minutes. When the bleeding stops, lie quietly keeping the procedure limb straight for six hours. Notify your doctor as soon as possible. * If the bleeding does not stop after ten minutes or if there is a large amount of bleeding or spurting, call 911 immediately. Continue to lie down and hold firm pressure until help arrives. SKIN IRRITATION: * You may experience some redness and/or swelling in the area where radiation was administered. If any skin irritation occurs, please contact your family physician. FOLLOW UP VISIT: Keep any scheduled doctor appointments. Follow Up Follow-up with: Follow-up with Dr. Quach as previously scheduled. Sangeeta De Paz Recommendations: Call your doctor if: * Temperature above 101 degrees * Pain not relieved by pain medicine ordered * There is increased drainage or redness from any incision * You have any unanswered questions or concerns. Your Doctors Instructions noted above were prepared by provider Joe Seymour. Patient Signature Section: Patient Instructions Signature Page Che Pavon Patient (or Guardian) Signature/Date: I have read and understand the instructions given to me by my caregivers. Caregiver/RN/Doctor Signature/Date: The above-named patient and/or guardian has received patient instructions on this date. + Original Patient Signature Page (only) stays with chart. Please make copy for patient.
[2017-08-10 13:55] VITALS: BP 125/56; PULSE 64; O2SAT 96
== END | disposition home or self-care (01) ==
LOC: C.CATH 08:30
PROVIDERS: ATTEND Internal Medicine Cardiovascular Disease
DX: R07.2 Precordial pain (principal); R53.1 Weakness; I10 Essential (primary) hypertension; R78.2 Finding of cocaine in blood; Z82.49 Family history of ischemic heart disease and other diseases of the circulatory system; Z88.1 Allergy status to other antibiotic agents; Z79.82 Long term (current) use of aspirin; Z79.899 Other long term (current) drug therapy

== ENCOUNTER → 2017-08-13 | Outpatient (CLI) | payer OTHER ==
[~2017-08-13] MED LIST changes: -ACETAMINOPHEN 325 MG TAB PO PRN; -ALBU0.08 INH; -ATROPINE SULFATE 0.1 MG/ML 5ML SYR IV PRN; -DC ALL ANTICOAGULANTS ONE; -FENTANYL CITRATE INJ 50 MCG/1 ML 2 ML VIAL ONE; -FSMD/70 PO; -HEPARIN SOD (PORCINE) 1000 UNIT/ML 10 ML VIAL ONE; -LIDOCAINE HCL 1% 20 ML VIAL ONE; -MIDAZOLAM HCL 1 MG/ML 2ML VIAL ONE; -NITROGLYCERIN/D5W 100MCG/ML 20ML SYR ONE; -NXM/40 PO; -NiCARDipine HCL INJ 2.5 MG/ML 10 ML AMP ONE; -ONDANSETRON INJ 2 MG/ML 2 ML VIAL IV PRN; -SODIUM CHLORIDE 0.9% 1000ML 1,000 ML IV SCH; -SODIUM CHLORIDE 0.9% 1000ML 250 ML IV PRN
[2017-08-13 13:07] LABS: BLOOD UREA NITROGEN 15 mg/dl (7-18); CALCIUM 9.2 mg/dl (8.5-10.1); CARBON DIOXIDE 29 mmol/L (21-32); CREATININE 1.15 mg/dl (0.60-1.20); GLUCOSE 80 mg/dl (70-99); POTASSIUM 3.9 mmol/L (3.5-5.1); SODIUM 138 mmol/L (136-145)
== END | disposition home or self-care (01) ==
LOC: C.LAB1850 11:12
PROVIDERS: ATTEND Internal Medicine Interventional Cardiology
DX: N28.9 Disorder of kidney and ureter, unspecified (principal)

== ENCOUNTER 2020-08-02 19:47 | Observation (INO) ==
[2020-08-02] MEDS ORDERED: SODIUM CHLORIDE 0.9% 1000ML 500 ML IV ONE (19:55)
--- NOTE | 2020-08-02 20:00 | Emergency Department Note ---
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 The patient has a history of chronic lung disease. She presented to the emergency department by ambulance. Currently the patient lives with her who was recently diagnosed with COVID-19 infection. The patient herself has not had the Covid vaccine. She called her primary care physician this week and was started on Bactrim as well as prednisone. She states her symptoms are not significantly improved. She states she has significant difficulty breathing with any ambulation. She also notices abdominal cramping nausea vomiting and diarrhea. The patient states that she did take medication for fever earlier today but has had no medication over the last few hours. She was given Zofran in the ambulance prior to arrival. She was noted to have a fever of 100.7 degrees. ROS: See above HPI for pertinent positives & negatives. A total of 10 systems reviewed and were otherwise negative. PAST MEDICAL HISTORY: See Below PAST SURGICAL HISTORY: See Below FAMILY HISTORY: See Below SOCIAL HISTORY: See Below HOME MEDICATIONS: See Below ALLERGIES: See Below VITALS: See Below PHYSICAL EXAMINATION: GENERAL: The patient is awake and alert. She is somewhat anxious appearing. EYES: The conjunctivae are clear. The pupils are round and reactive. EARS, NOSE, MOUTH AND THROAT: The nose is without any evidence of any deformity. Mucous membranes are moist. Tongue is midline. NECK: The neck is nontender and supple. RESPIRATORY: Diminished breath sounds are noted in the left lung field. There were rales and crackles in the right lower lung field. There was mild conversational dyspnea appreciated. CARDIOVASCULAR: Regular rate and rhythm noted there no murmurs rubs or gallops normal S1 normal S2. GASTROINTESTINAL: The abdomen is soft and nondistended. There is diffuse tenderness to palpation but no guarding rigidity. MUSCULOSKELETAL/EXTREMITIES: There is no evidence of gross deformity full range of motion is noted in the hips and shoulders. SKIN: There is no obvious evidence of any rash. Skin is cool and dry. There is no significant pedal edema or calf tenderness. NEUROLOGIC: Patient is awake alert and oriented x3. MEDICAL DECISION MAKING: The patient is a 69-year-old female who presented to the emergency department for an acute febrile illness. The patient lives with her significant other and he recently developed COVID-19. The patient started having symptoms this past Tuesday. She was started on medication including Bactrim and prednisone by her primary care physician. She does have a history of lung disease in the past. The patient was found to be hypoxic in the emergency department. I discussed the patient's laboratory and radiographic studies with her. Given her history of lung disease in the past I do feel that she may require inpatient management. For this reason I discussed her case with the on-call [facility]. They have agreed to evaluate the patient in the emergency department for further management and disposition. Triage Nursing notes reviewed. Prior medical records reviewed Vital Signs: reviewed and remarkable for hypoxia and fever. Differential diagnosis: Viral syndrome, otitis, pharyngitis, pneumonia, influenza, meningitis, urinary tract infection, sepsis, bacteremia, as well as other pathologies. ER treatment provided: See below Diagnostics interpreted by me: ECG: EKG was obtained in the emergency department. My interpretation is normal sinus rhythm at 83 bpm. There is no ectopy. Lateral ST segment depressions were noted. This was minimal. This was compared to a tracing from April [id number]. The ST segment abnormalities are new compared to the previous tracing. Cardiac Monitoring: An order was placed for continuous cardiac monitoring. The monitor shows a rate of 85 bpm with sinus rhythm. Laboratory studies: As stated above and show below. Imaging studies: See below Consultation(s): I discussed this case with Dr. Camp who is on-call for the [facility] hospitalist group. Past Med/Surg History Medical History Asthma Asthma Degeneration of cervical intervertebral disc Eosinophilic gastroenteritis and colitis GERD without esophagitis History of pulmonary embolism Hyperparathyroidism Hypertension Osteoporosis Osteoporosis Vitamin D deficiency Surgical History History of ankle surgery History of hip surgery Hx of appendectomy Family History Grandmother (Paternal) Arthritis Aunt Rheumatoid arthritis Family/Other Diabetes Father Coronary heart disease Social History Smoking Status: Never smoker Communication Ability: Effective Visual Impairment: No Limitations Hearing Ability: Normal current occupational status: retired Feels Safe at Home: Yes Allergies Allergies Allergy/AdvReac Type Severity Reaction Status Date / Time erythromycin base Allergy Mild RASH Verified 08/02/20 20:50 tiotropium Allergy Mild RASH Verified 08/02/20 20:50 amoxicillin Allergy Unknown GI UPSET Verified 08/02/20 20:50 clavulanic acid Allergy Unknown AUGMENTIN Verified 08/02/20 20:50 Cipro AdvReac Mild vomiting Verified 04/15/16 22:58 ciprofloxacin AdvReac Mild vomiting Verified 08/02/20 20:50 Quinolones AdvReac Mild CIPRO-VOMIT Verified 08/02/20 20:50 ING Home Meds Home Medications Medication Instructions Recorded Confirmed Lacto.acidophilus-Bif.animalis 1 cap PO DAILY 02/25/18 08/02/20 [Probiotic] albuterol sulfate [Ventolin HFA] 2 puff INHALATION QID PRN 02/25/18 08/02/20 aspirin [Aspirin Low Dose] 81 mg PO HS 02/25/18 08/02/20 cholecalciferol (vitamin D3) 2,000 unit PO DAILY 02/25/18 08/02/20 [Vitamin D3] multivitamin 1 tab PO DAILY 02/25/18 08/02/20 soy isofla-blk cohosh-mag bark 155 mg PO DAILY 02/25/18 08/02/20 [Estroven] acetaminophen [Tylenol Extra 500 mg PO Q6H PRN 08/02/20 08/02/20 Strength] atorvastatin 20 mg PO HS 08/02/20 08/02/20 cyanocobalamin (vitamin B-12) 1,000 mcg PO DAILY 08/02/20 08/02/20 [Vitamin B-12] fluticasone propionate [Flonase 2 spray INTRANASAL DAILY PRN 08/02/20 08/02/20 Allergy Relief] levocetirizine 5 mg PO HS 08/02/20 08/02/20 montelukast 10 mg PO HS 08/02/20 08/02/20 Previous Rx's Medication Instructions Recorded fluticasone furoate 200 1 inh INHALATION DAILY #3 ea 12/17/19 mcg-vilanterol 25 mcg/dose inhalation powder pantoprazole 40 mg tablet,delayed 40 mg PO DAILY #90 tab 02/25/20 release potassium chloride 20 mEq 20 meq PO DAILY #90 tab 03/24/20 tablet,extended release(part/cryst) carvedilol 6.25 mg tablet 6.25 mg PO BID #180 tab 04/10/20 theophylline 400 mg 400 mg PO BID #180 tab 04/10/20 tablet,extended release 24 hr furosemide 20 mg tablet 20 mg PO DAILY #90 tab 06/20/20 escitalopram oxalate 5 mg tablet 5 mg PO DAILY #90 tab 07/07/20 methylprednisolone 4 mg tablets in See Rx Instructions .ROUTE 07/28/20 a dose pack .COMPLEX #21 ea sulfamethoxazole 800 1 tab PO Q12H #30 tab 07/28/20 mg-trimethoprim 160 mg tablet Results & Data (ED) Vital Signs Vital Signs - 24 hr 08/02/20 19:51 08/02/20 19:57 08/02/20 20:04 Temperature 38.1 C H Temperature Source Oral Pulse Rate 91 H 94 H Pulse Rate [Bilateral Apical] Pulse Rate from SpO2 Sensor 90 Respiratory Rate 20 20 Respiratory Effort / Characteristics Blood Pressure 142/83 H 142/83 H Blood Pressure [Left Arm] Blood Pressure Mean 102 102 Blood Pressure Mean [Left Arm] Blood Pressure Position Lying Pulse Oximetry 90 89 L 90 Oxygen Delivery Method Room Air Room Air Oxygen Flow Rate Sepsis Recent Fever Within 48 Hours Yes Sepsis New/Unexplained Change in Mental Status N/A Sepsis Action Taken by Nursing Previously Notified 08/02/20 20:29 08/02/20 21:12 08/02/20 21:13 Temperature Temperature Source Pulse Rate 86 Pulse Rate [Bilateral Apical] 83 Pulse Rate from SpO2 Sensor 85 Respiratory Rate 18 23 20 Respiratory Effort / Characteristics Non-Labored Short of Breath Blood Pressure 129/60 Blood Pressure [Left Arm] 129/60 Blood Pressure Mean 83 Blood Pressure Mean [Left Arm] 83 Blood Pressure Position Pulse Oximetry 88 L 96 95 Oxygen Delivery Method Room Air Nasal Cannula Oxygen Flow Rate 2 Sepsis Recent Fever Within 48 Hours Sepsis New/Unexplained Change in Mental Status Sepsis Action Taken by Nursing 08/02/20 21:30 08/02/20 21:50 08/02/20 21:55 Temperature Temperature Source Pulse Rate 81 Pulse Rate [Bilateral Apical] Pulse Rate from SpO2 Sensor 81 Respiratory Rate 22 Respiratory Effort / Characteristics Blood Pressure Blood Pressure [Left Arm] Blood Pressure Mean Blood Pressure Mean [Left Arm] Blood Pressure Position Pulse Oximetry 94 90 95 Oxygen Delivery Method Room Air Room Air Nasal Cannula Oxygen Flow Rate 2 Sepsis Recent Fever Within 48 Hours Sepsis New/Unexplained Change in Mental Status Sepsis Action Taken by Nursing 08/02/20 22:16 08/02/20 22:29 Temperature 38.7 C H Temperature Source Oral Pulse Rate 77 Pulse Rate [Bilateral Apical] Pulse Rate from SpO2 Sensor 77 Respiratory Rate 20 Respiratory Effort / Characteristics Blood Pressure 133/70 Blood Pressure [Left Arm] Blood Pressure Mean 91 Blood Pressure Mean [Left Arm] Blood Pressure Position Pulse Oximetry 95 Oxygen Delivery Method Oxygen Flow Rate Sepsis Recent Fever Within 48 Hours Sepsis New/Unexplained Change in Mental Status Sepsis Action Taken by [facility] Medications Current Medication List: was personally reviewed by me Laboratory Data Attestation: I reviewed the patient's lab results. Result diagrams: 08/02/20 19:58 08/02/20 19:58 Lab Results 08/02/20 08/02/20 08/02/20 Range/Units 19:58 19:58 19:58 WBC 4.40 L (4.8-10.8) K/uL RBC 4.60 (4.2-5.4) M/uL Hgb 14.4 (12.0-16.0) g/dL Hct 43.5 (37-47) % MCV 94.6 (80-100) fL MCH 31.3 (25-34) pg MCHC 33.1 (32-36) g/dL RDW Std Deviation 48.0 H (36.4-46.3) fL RDW Coeff of Jose 14.0 (11.5-14.5) % Plt Count 162 (130-400) K/uL MPV 9.8 (7.4-10.4) fL Immature Gran % (Auto) 0.5 % Neut % (Auto) 66.7 % Lymph % (Auto) 26.6 % Green % (Auto) 5.7 % Eos % (Auto) 0.0 % Baso % (Auto) 0.5 % Neut # (Auto) 2.94 (1.4-6.5) K/uL Lymph # (Auto) 1.17 L (1.2-3.4) K/uL Green # (Auto) 0.25 (0.11-0.59) K/uL Eos # (Auto) 0.00 (0-0.5) K/uL Baso # (Auto) 0.02 (0-0.2) K/uL Immature Gran # (Auto) 0.02 (0.00-0.02) K/uL PT 10.4 (9.0-12.0) Seconds INR 1.0 (0.9-1.1) APTT 23.2 (21.0-31.0) Seconds PTT Ratio 0.9 Sodium 136 (136-145) mmol/L Potassium 3.6 (3.5-5.1) mmol/L Chloride 103 (98-107) mmol/L Carbon Dioxide 24 (21-32) mmol/L Anion Gap 8.0 (3-11) BUN 23 H (7-18) mg/dl Creatinine 1.15 (0.6-1.2) mg/dl Est Cr Clr Drug Dosing 47.3 ml/min Est GFR ( Amer) 55.8 Est GFR (Non-Af Amer) 48.2 BUN/Creatinine Ratio 19.8 (10-20) Glucose 97 (70-99) mg/dl Lactate (0.4-2.0) mmol/L Calcium 8.7 (8.5-10.1) mg/dl Magnesium 2.3 (1.8-2.4) mg/dl Total Bilirubin 0.4 (0.2-1) mg/dl AST 33 (15-37) U/L ALT 18 (12-78) U/L Alkaline Phosphatase 62 (45-117) U/L Troponin I < 0.015 (0-0.045) ng/ml Total Protein 7.6 (6.4-8.2) gm/dl Albumin 3.2 L (3.4-5.0) gm/dl Globulin 4.4 H (2.5-4.0) gm/dl Albumin/Globulin Ratio 0.7 L (0.9-2) Procalcitonin (0-0.5) ng/ml COVID-19 Eval Order SARS-CoV-2 (PCR) (Negative) Influenza Type A (PCR) (Neg) Influenza Type B (PCR) (Neg) RSV (RT-PCR) (Neg) 08/02/20 08/02/2021 Range/Units 19:58 19:58 20:09 WBC (4.8-10.8) K/uL RBC (4.2-5.4) M/uL Hgb (12.0-16.0) g/dL Hct (37-47) % MCV (80-100) fL MCH (25-34) pg MCHC (32-36) g/dL RDW Std Deviation (36.4-46.3) fL RDW Coeff of Jose (11.5-14.5) % Plt Count (130-400) K/uL MPV (7.4-10.4) fL Immature Gran % (Auto) % Neut % (Auto) % Lymph % (Auto) % Green % (Auto) % Eos % (Auto) % Baso % (Auto) % Neut # (Auto) (1.4-6.5) K/uL Lymph # (Auto) (1.2-3.4) K/uL Green # (Auto) (0.11-0.59) K/uL Eos # (Auto) (0-0.5) K/uL Baso # (Auto) (0-0.2) K/uL Immature Gran # (Auto) (0.00-0.02) K/uL PT (9.0-12.0) Seconds INR (0.9-1.1) APTT (21.0-31.0) Seconds PTT Ratio Sodium (136-145) mmol/L Potassium (3.5-5.1) mmol/L Chloride (98-107) mmol/L Carbon Dioxide (21-32) mmol/L Anion Gap (3-11) BUN (7-18) mg/dl Creatinine (0.6-1.2) mg/dl Est Cr Clr Drug Dosing ml/min Est GFR ( Amer) Est GFR (Non-Af Amer) BUN/Creatinine Ratio (10-20) Glucose (70-99) mg/dl Lactate 1.1 (0.4-2.0) mmol/L Calcium (8.5-10.1) mg/dl Magnesium (1.8-2.4) mg/dl Total Bilirubin (0.2-1) mg/dl AST (15-37) U/L ALT (12-78) U/L Alkaline Phosphatase (45-117) U/L Troponin I (0-0.045) ng/ml Total Protein (6.4-8.2) gm/dl Albumin (3.4-5.0) gm/dl Globulin (2.5-4.0) gm/dl Albumin/Globulin Ratio (0.9-2) Procalcitonin 0.05 (0-0.5) ng/ml COVID-19 Eval Order CovFluRsv at [facility] SARS-CoV-2 (PCR) (Negative) Influenza Type A (PCR) (Neg) Influenza Type B (PCR) (Neg) RSV (RT-PCR) (Neg) 08/02/20 Range/Units 20:09 WBC (4.8-10.8) K/uL RBC (4.2-5.4) M/uL Hgb (12.0-16.0) g/dL Hct (37-47) % MCV (80-100) fL MCH (25-34) pg MCHC (32-36) g/dL RDW Std Deviation (36.4-46.3) fL RDW Coeff of Jose (11.5-14.5) % Plt Count (130-400) K/uL MPV (7.4-10.4) fL Immature Gran % (Auto) % Neut % (Auto) % Lymph % (Auto) % Green % (Auto) % Eos % (Auto) % Baso % (Auto) % Neut # (Auto) (1.4-6.5) K/uL Lymph # (Auto) (1.2-3.4) K/uL Green # (Auto) (0.11-0.59) K/uL Eos # (Auto) (0-0.5) K/uL Baso # (Auto) (0-0.2) K/uL Immature Gran # (Auto) (0.00-0.02) K/uL PT (9.0-12.0) Seconds INR (0.9-1.1) APTT (21.0-31.0) Seconds PTT Ratio Sodium (136-145) mmol/L Potassium (3.5-5.1) mmol/L Chloride (98-107) mmol/L Carbon Dioxide (21-32) mmol/L Anion Gap (3-11) BUN (7-18) mg/dl Creatinine (0.6-1.2) mg/dl Est Cr Clr Drug Dosing ml/min Est GFR ( Amer) Est GFR (Non-Af Amer) BUN/Creatinine Ratio (10-20) Glucose (70-99) mg/dl Lactate (0.4-2.0) mmol/L Calcium (8.5-10.1) mg/dl Magnesium (1.8-2.4) mg/dl Total Bilirubin (0.2-1) mg/dl AST (15-37) U/L ALT (12-78) U/L Alkaline Phosphatase (45-117) U/L Troponin I (0-0.045) ng/ml Total Protein (6.4-8.2) gm/dl Albumin (3.4-5.0) gm/dl Globulin (2.5-4.0) gm/dl Albumin/Globulin Ratio (0.9-2) Procalcitonin (0-0.5) ng/ml COVID-19 Eval Order SARS-CoV-2 (PCR) POSITIVE A* (Negative) Influenza Type A (PCR) Negative (Neg) Influenza Type B (PCR) Negative (Neg) RSV (RT-PCR) Negative (Neg) Administered Medications Discontinued Medications Acetaminophen (Acetaminophen 500 Mg Tab) 1,000 mg PO NOW STA Stop: 08/02/20 22:28 Last Admin: 08/02/20 22:35 Dose: 1,000 mg Documented by: [id number] Dexamethasone Sodium Phosphate (DexamethasonePf 10 Mg/Ml Vial) 10 mg IV NOW ONE Stop: 08/02/20 20:04 Last Admin: 08/02/20 20:13 Dose: 10 mg Documented by: [id number] Sodium Chloride (Nss 1000ml) 500 mls @ 999 mls/hr IV .Q31M ONE Stop: 08/02/20 20:25 Last Infusion: 08/02/20 22:10 Dose: 0 mls/hr Documented by: [id number] Admin: 08/02/20 20:14 Dose: 999 mls/hr Documented by: [id number] Imaging Data Attestation: I personally reviewed and interpreted this imaging study as follows: My Impression: KUB was obtained in the emergency department. My interpretation is nonspecific bowel gas pattern noted. There is no free air. There is no signs of bowel obstruction. 1 view of the chest x-ray was obtained in the emergency department. My interpretation is platelike atelectasis at the left base. There was also peripheral infiltrate noted on the right lower lobe. There is no free air. This was compared to a chest x-ray from March 092017. The changes appear new compared to the earlier x-ray. Discharge Plan Visit Data Chief Complaint: Fever Stated Complaint: NAUSEA,VOMITING,FEVER ED Provider: Gregorio Curtis Discharge Problem: Pneumonia due to 2019 novel coronavirus, Hypoxia, Fever Patient Disposition: Being Evaluated by Hospitalist Condition: Good Forms Stand Alone Forms: My [facility] Prescriptions Prescriptions: No Action fluticasone furoate-vilanterol 200-25 mcg/dose blister with device 1 inh inhalation DAILY Qty: 3 RF: 1 pantoprazole 40 mg tablet,delayed release (DR/EC) 40 mg PO DAILY Qty: 90 RF: 1 potassium chloride 20 mEq tablet,ER particles/crystals 20 meq PO DAILY Qty: 90 RF: 1 carvedilol 6.25 mg tablet 6.25 mg PO BID Qty: 180 RF: 1 theophylline 400 mg tablet extended release 24 hr 400 mg PO BID Qty: 180 RF: 1 furosemide 20 mg tablet 20 mg PO DAILY Qty: 90 RF: 1 escitalopram oxalate 5 mg tablet 5 mg PO DAILY Qty: 90 RF: 1 methylprednisolone [Medrol (Ghassan)] 4 mg tablets,dose pack See Rx Instructions .Route .COMPLEX Qty: 21 RF: 0 sulfamethoxazole-trimethoprim 800-160 mg tablet 1 tab PO Q12H Qty: 30 RF: 0 multivitamin Tablet 1 tab PO DAILY RF: 0 aspirin [Aspirin Low Dose] 81 mg Tablet,Delayed Release (Dr/Ec) 81 mg PO HS RF: 0 albuterol sulfate [Ventolin HFA] 90 mcg/actuation HFA aerosol inhaler 2 puff Inhalation QID PRN (Reason: Shortness Of Breath) RF: 0 cholecalciferol (vitamin D3) [Vitamin D3] 2,000 unit Capsule 2,000 unit PO DAILY RF: 0 Probiotic 5 billion cell Capsule, Sprinkle 1 cap PO DAILY RF: 0 Estroven 155 mg Capsule 155 mg PO DAILY RF: 0 cyanocobalamin (vitamin B-12) [Vitamin B-12] 1,000 mcg Tablet 1,000 mcg PO DAILY RF: 0 acetaminophen [Tylenol Extra Strength] 500 mg Tablet 500 mg PO Q6H PRN (Reason: Pain or Fever) RF: 0 atorvastatin 20 mg tablet 20 mg PO HS RF: 0 montelukast 10 mg tablet 10 mg PO HS RF: 0 fluticasone propionate [Flonase Allergy Relief] 50 mcg/actuation spray,suspension 2 spray INTRANASAL DAILY PRN (Reason: Allergy Relief) RF: 0 levocetirizine 5 mg tablet 5 mg PO HS RF: 0 Referrals Referrals: Gregorio Turk MD [Primary Care Provider] - Discharge Problem: Fever Qualifiers: Fever type: unspecified Qualified Code(s): R50.9 - Fever, unspecified
[2020-08-02] MEDS ORDERED: dexAMETHasone**PF** 10 MG/ML VIAL IV ONE (20:03)
[2020-08-02 20:28] LABS: Basophils # (auto) 0.02 K/uL (0-0.2); Basophils % (auto) 0.5 %; Hematocrit (blood only) 43.5 % (37-47); Hemoglobin 14.4 g/dL (12.0-16.0); Immature Granulocytes # (auto) 0.02 K/uL (0.00-0.02); Immature Granulocytes % (auto) 0.5 %; Lymphocytes # (auto) 1.17 K/uL (1.2-3.4); Lymphocytes % (auto) 26.6 %; Mean Corpuscular Hemoglobin 31.3 pg (25-34); Mean Corpuscular Hgb Conc 33.1 g/dL (32-36); Mean Corpuscular Volume 94.6 fL (80-100); Mean Platelet Volume 9.8 fL (7.4-10.4); Monocytes # (auto) 0.25 K/uL (0.11-0.59); Monocytes % (auto) 5.7 %; Neutrophils # (auto) 2.94 K/uL (1.4-6.5); Neutrophils % (auto) 66.7 %; Platelet Count 162 K/uL (130-400)
[2020-08-02 20:43] LABS: Partial Thromboplastin Ratio 0.9; Partial Thromboplastin Time 23.2 Seconds (21.0-31.0); Prothrombin Time 10.4 Seconds (9.0-12.0)
[2020-08-02 20:45] LABS: Alanine Aminotransferase 18 U/L (12-78); Albumin Level 3.2 gm/dl (3.4-5.0); Aspartate Aminotransferase 33 U/L (15-37); BUN Creatinine Ratio 19.8 (10-20); Blood Urea Nitrogen 23 mg/dl (7-18); Calcium 8.7 mg/dl (8.5-10.1); Carbon Dioxide 24 mmol/L (21-32); Chloride 103 mmol/L (98-107); Creatinine Clr Calc Pharmacy 47.3 ml/min; Est GFR (African American) 55.8; Est GFR (Non-African American) 48.2; Glucose 97 mg/dl (70-99); Magnesium 2.3 mg/dl (1.8-2.4); Potassium 3.6 mmol/L (3.5-5.1); Sodium 136 mmol/L (136-145)
[2020-08-02 20:49] LABS: Albumin Globulin Ratio 0.7 (0.9-2); Alkaline Phosphatase 62 U/L (45-117); Bilirubin,Total 0.4 mg/dl (0.2-1); Globulin 4.4 gm/dl (2.5-4.0); Total Protein 7.6 gm/dl (6.4-8.2); Troponin I < 0.015 ng/ml (0-0.045)
[2020-08-02 21:27] LABS: Influenza A virus by PCR Negative (Neg); Influenza B virus by PCR Negative (Neg); RSV by PCR Negative (Neg)
[2020-08-02] MEDS ORDERED: ACETAMINOPHEN 500 MG TAB PO STA (22:27)
[2020-08-02 22:30] LABS: SARS CoV2 RNA(COVID-19) InHosp POSITIVE (Negative)
--- NOTE | 2020-08-03 00:23 | History & Physical Report ---
Date of Service August 03, 2020 Assessment & Plan (1) Pneumonia due to 2019 novel coronavirus: Patient with Covid-19 PNA, hypoxia on arrival to the ER. Symptoms have been ongoing for the last week, worse over the last 3 days. She is currently doing well on 2L NC -Admit to medical -Supplemental O2 as needed to maintain saturations 94% -Dexamethasone 6mg IV daily -Remdesivir per protocol -Tylenol, Albuterol, Zofran, Tessalon PRN -IS and Flutter valve -Continue vitamin D supplementation -Lovenox 40mg BID for DVT prevention Present on Admission?: Yes (2) Sarcoidosis: Chronic. Patient follows with Pulmonary -Continue Fluticasone/Vilanterol -Albuterol PRN Present on Admission?: Yes (3) Asthma: Patient follows with Pulmonary -Continue Theophylline ER 400mg po BID -Continue Singulair, Zyrtec Present on Admission?: Yes (4) Hypertension: Blood pressure stable -Continue Carvedilol 6.25mg po BID -Continue to monitor Present on Admission?: Yes (5) Depression: Chronic. -Continue Escitalopram 5mg po daily Present on Admission?: Yes (6) GERD without esophagitis: Chronic. Stable -Continue Protonix 40mg po daily F/E/N - Heplock. Monitor electrolytes, PO as tolerated with Zofran PRN Ppx - Lovenox 40 BID Code - DNR/DNI per discussion with patient Present on Admission?: Yes History of Present Illness Chief Complaint: Covid-19 Primary Care Provider: Gregorio Turk MD Che Pavon is a 69yo female with history of Sarcoidosis for which she follows with Pulmonary. Patient began developing fevers, body aches, fatigue and weakness approximately one week ago. Also with vomiting and diarrhea. She has been unable to tolerate PO intake x 3 days. She has been taking care of her at home who was recently diagnosed with Covid-19. She does admit to SOB at rest and with mild exertion Has not yet received her Covid-19 vaccines yet Does not use O2 at home Patient febrile at 38.7 on arrival, hypoxic to 88% on room air Allergies Allergy/AdvReac Type Severity Reaction Status Date / Time erythromycin base Allergy Mild RASH Verified 08/02/20 20:50 tiotropium Allergy Mild RASH Verified 08/02/20 20:50 amoxicillin Allergy Unknown GI UPSET Verified 08/02/20 20:50 clavulanic acid Allergy Unknown AUGMENTIN Verified 08/02/20 20:50 Cipro AdvReac Mild vomiting Verified 04/15/16 22:58 ciprofloxacin AdvReac Mild vomiting Verified 08/02/20 20:50 Quinolones AdvReac Mild CIPRO-VOMIT Verified 08/02/20 20:50 ING Home Medications Medication Instructions Recorded Confirmed Type Lacto.acidophilus-Bif.animalis 1 cap PO DAILY 02/25/18 08/02/20 History [Probiotic] albuterol sulfate [Ventolin HFA] 2 puff INHALATION QID PRN 02/25/18 08/02/20 History aspirin [Aspirin Low Dose] 81 mg PO HS 02/25/18 08/02/20 History cholecalciferol (vitamin D3) 2,000 unit PO DAILY 02/25/18 08/02/20 History [Vitamin D3] multivitamin 1 tab PO DAILY 02/25/18 08/02/20 History soy isofla-blk cohosh-mag bark 155 mg PO DAILY 02/25/18 08/02/20 History [Estroven] fluticasone furoate 200 1 inh INHALATION DAILY #3 ea 12/17/19 08/02/20 Rx mcg-vilanterol 25 mcg/dose inhalation powder pantoprazole 40 mg tablet,delayed 40 mg PO DAILY #90 tab 02/25/20 08/02/20 Rx release potassium chloride 20 mEq 20 meq PO DAILY #90 tab 03/24/20 08/02/20 Rx tablet,extended release(part/cryst) carvedilol 6.25 mg tablet 6.25 mg PO BID #180 tab 04/10/20 08/02/20 Rx theophylline 400 mg 400 mg PO BID #180 tab 04/10/20 08/02/20 Rx tablet,extended release 24 hr furosemide 20 mg tablet 20 mg PO DAILY #90 tab 06/20/20 08/02/20 Rx escitalopram oxalate 5 mg tablet 5 mg PO DAILY #90 tab 07/07/20 08/02/20 Rx methylprednisolone 4 mg tablets in See Rx Instructions .ROUTE 07/28/20 08/02/20 Rx a dose pack .COMPLEX #21 ea sulfamethoxazole 800 1 tab PO Q12H #30 tab 07/28/20 08/02/20 Rx mg-trimethoprim 160 mg tablet acetaminophen [Tylenol Extra 500 mg PO Q6H PRN 08/02/20 08/02/20 History Strength] atorvastatin 20 mg PO HS 08/02/20 08/02/20 History cyanocobalamin (vitamin B-12) 1,000 mcg PO DAILY 08/02/20 08/02/20 History [Vitamin B-12] fluticasone propionate [Flonase 2 spray INTRANASAL DAILY PRN 08/02/20 08/02/20 History Allergy Relief] levocetirizine 5 mg PO HS 08/02/20 08/02/20 History montelukast 10 mg PO HS 08/02/20 08/02/20 History Past Med/Surg History Medical History Asthma Degeneration of cervical intervertebral disc Eosinophilic gastroenteritis and colitis GERD without esophagitis History of pulmonary embolism Hyperparathyroidism Hypertension Osteoporosis Sarcoidosis Vitamin D deficiency Surgical History History of ankle surgery History of hip surgery Hx of appendectomy Family History Grandmother (Paternal) Arthritis Aunt Rheumatoid arthritis Family/Other Diabetes Father Coronary heart disease Social History Smoking Status: Never smoker Communication Ability: Effective Visual Impairment: No Limitations Hearing Ability: Normal current occupational status: retired Feels Safe at Home: Yes Review of Systems Review of Systems: All systems reviewed & are unremarkable except as noted in HPI & below +weakness, fatigue, body aches, fever +SOB, dry cough Physical Exam Physical Exam: General: patient resting comfortably, NAD, non-toxic in appearance, AA&O x 4 Skin: warm, dry, intact, no rashes or lesions HEENT: NC/AT, PERRL, EOMI, anicteric sclera, conjunctiva without injection, external ear normal to inspection and nontender, nares patent, moist mucus membranes, dentition intact, no oropharyngeal lesions, neck supple, trachea midline, no LAD, no thyromegaly, no JVD Heart: +S1/S2, regular, no m/r/g Lungs: equal air entry bilaterally, no rales/rhonchi/wheezes Abd: +BS, soft, NT/ND, no masses/organomegaly/ascites Ext: warm, 2+ pulses in UE/LE bilaterally, no clubbing/cyanosis or edema Neuro: nonfocal, patient AA&O x 4, speech intact, no facial droop, moving all extremities on command with equal strength 5/5 Results & Data Results & Data ([facility]) Vital Signs (Past 12 Hours) Vital Signs Temp Pulse Pulse Resp BP BP Pulse Ox 08/03/20 00:00 71 19 97 08/02/20 23:30 73 21 97 08/02/20 23:00 80 22 96 08/02/20 22:30 85 24 95 08/02/20 22:29 38.7 C H 08/02/20 22:16 77 20 133/70 95 08/02/20 21:55 95 08/02/20 21:50 90 08/02/20 21:30 81 22 94 08/02/20 21:13 83 20 129/60 95 08/02/20 21:12 86 23 129/60 96 08/02/20 20:29 18 88 L 08/02/20 20:04 90 08/02/20 19:57 38.1 C H 94 H 20 142/83 H 89 L 08/02/20 19:51 91 H 20 142/83 H 90 Laboratory Results Laboratory Results WBC 4.40 K/uL (4.8-10.8) L 08/02/20 19:58 RBC 4.60 M/uL (4.2-5.4) 08/02/20 19:58 Hgb 14.4 g/dL (12.0-16.0) 08/02/20 19:58 Hct 43.5 % (37-47) 08/02/20 19:58 MCV 94.6 fL (80-100) 08/02/20 19:58 MCH 31.3 pg (25-34) 08/02/20 19:58 MCHC 33.1 g/dL (32-36) 08/02/20 19:58 RDW Std Deviation 48.0 fL (36.4-46.3) H 08/02/20 19:58 RDW Coeff of Jose 14.0 % (11.5-14.5) 08/02/20 19:58 Plt Count 162 K/uL (130-400) 08/02/20 19:58 MPV 9.8 fL (7.4-10.4) 08/02/20 19:58 Immature Gran % (Auto) 0.5 % 08/02/20 19:58 Neut % (Auto) 66.7 % 08/02/20 19:58 Lymph % (Auto) 26.6 % 08/02/20 19:58 Christian % (Auto) 5.7 % 08/02/20 19:58 Eos % (Auto) 0.0 % 08/02/20 19:58 Baso % (Auto) 0.5 % 08/02/20 19:58 Neut # (Auto) 2.94 K/uL (1.4-6.5) 08/02/20 19:58 Lymph # (Auto) 1.17 K/uL (1.2-3.4) L 08/02/20 19:58 Christian # (Auto) 0.25 K/uL (0.11-0.59) 08/02/20 19:58 Eos # (Auto) 0.00 K/uL (0-0.5) 08/02/20 19:58 Baso # (Auto) 0.02 K/uL (0-0.2) 08/02/20 19:58 Immature Gran # (Auto) 0.02 K/uL (0.00-0.02) 08/02/20 19:58 PT 10.4 Seconds (9.0-12.0) 08/02/20 19:58 INR 1.0 (0.9-1.1) 08/02/20 19:58 APTT 23.2 Seconds (21.0-31.0) 08/02/20 19:58 PTT Ratio 0.9 08/02/20 19:58 Sodium 136 mmol/L (136-145) 08/02/20 19:58 Potassium 3.6 mmol/L (3.5-5.1) 08/02/20 19:58 Chloride 103 mmol/L (98-107) 08/02/20 19:58 Carbon Dioxide 24 mmol/L (21-32) 08/02/20 19:58 Anion Gap 8.0 (3-11) 08/02/20 19:58 BUN 23 mg/dl (7-18) H 08/02/20 19:58 Creatinine 1.15 mg/dl (0.6-1.2) 08/02/20 19:58 Est Cr Clr Drug Dosing 47.3 ml/min 08/02/20 19:58 Est GFR ( Amer) 55.8 08/02/20 19:58 Est GFR (Non-Af Amer) 48.2 08/02/20 19:58 BUN/Creatinine Ratio 19.8 (10-20) 08/02/20 19:58 Glucose 97 mg/dl (70-99) 08/02/20 19:58 Lactate 1.1 mmol/L (0.4-2.0) 08/02/20 19:58 Calcium 8.7 mg/dl (8.5-10.1) 08/02/20 19:58 Magnesium 2.3 mg/dl (1.8-2.4) 08/02/20 19:58 Total Bilirubin 0.4 mg/dl (0.2-1) 08/02/20 19:58 AST 33 U/L (15-37) 08/02/20 19:58 ALT 18 U/L (12-78) 08/02/20 19:58 Alkaline Phosphatase 62 U/L (45-117) 08/02/20 19:58 Troponin I < 0.015 ng/ml (0-0.045) 08/02/20 19:58 Total Protein 7.6 gm/dl (6.4-8.2) 08/02/20 19:58 Albumin 3.2 gm/dl (3.4-5.0) L 08/02/20 19:58 Globulin 4.4 gm/dl (2.5-4.0) H 08/02/20 19:58 Albumin/Globulin Ratio 0.7 (0.9-2) L 08/02/20 19:58 Procalcitonin 0.05 ng/ml (0-0.5) 08/02/20 19:58 COVID-19 Eval Order [facility]FluRsv at [facility] 08/02/20 20:09 SARS-CoV-2 (PCR) POSITIVE (Negative) A* 08/02/20 20:09 Influenza Type A (PCR) Negative (Neg) 08/02/20 20:09 Influenza Type B (PCR) Negative (Neg) 08/02/20 20:09 RSV (RT-PCR) Negative (Neg) 08/02/20 20:09 Diagnostic Findings CXR - Per my interpretation - CXR with suggestion of peripheral airspace disease of bilateral lower lung barraza R>L Code Status & VTE Plan VTE Prophylaxis Plan VTE Prophylaxis will be ordered: Yes PG Care Time/CCT Total # of Minutes Spent Total Time Spent with Patient: Total time spent is greater than 50% in coor dination of care (as documented) at patient's floor/unit and/or counseling patient: Coding Level of Care Code 65083 Initial Inpt Care Lvl 3 Diagnoses Pneumonia due to 2019 novel coronavirus U07.1; J12.82 Sarcoidosis D86.9 Asthma J45.909 Asthma severity: mild Asthma persistence: unspecified Asthma complication type: uncomplicated Hypertension I10 Hypertension type: essential hypertension Depression F32.9 Depression Type: major depressive disorder Major depression recurrence: unspecified whether recurrent Active/Remission status: remission status unspecified GERD without esophagitis K21.9 (1) Asthma Asthma severity: mild Asthma persistence: unspecified Asthma complication type: uncomplicated Qualified Code(s): J45.909 - Unspecified asthma, uncomplicated (2) Hypertension Hypertension type: essential hypertension Qualified Code(s): I10 - Essential (primary) hypertension (3) Depression Depression Type: major depressive disorder Major depression recurrence: unspecified whether recurrent Active/Remission status: remission status unspecified Qualified Code(s): F32.9 - Major depressive disorder, single episode, unspecified
[2020-08-03] MEDS ORDERED: ONDANSETRON INJ 2 MG/ML 2 ML VIAL IV PRN (01:07)
[2020-08-03] MEDS ORDERED: ALBUTEROL HFA 8 GM INHALER INH PRN (01:07)
[2020-08-03] MEDS ORDERED: ACETAMINOPHEN 325 MG TAB PO PRN (01:07)
[2020-08-03] MEDS ORDERED: BENZONATATE 100 MG CAPSULE PO PRN (01:07)
[2020-08-03] MEDS ORDERED: ACETAMINOPHEN HOME PACK 500 MG TABLET PO PRN (01:07)
[2020-08-03] MEDS: ENOXAPARIN INJ 40 MG/0.4 ML SYR SQ SCH ×2 (02:03→11:04)
[2020-08-03] MEDS ORDERED: REMDESIVIR 200 MG in SODIUM CHLORIDE 0.9% 210 ML IV ONE (02:15)
[2020-08-03] MEDS: SODIUM CHLORIDE 0.9% 10ML FLUSH IV SCH ×2 (02:19→09:20)
[2020-08-03 04:54] LABS: Appearance Urine Clear (Clear); Bacteria Urine Automated Negative (Negative); Bilirubin Urine Negative (Negative); Blood Urine Negative (Negative); Color Urine Dark Yellow; Epithelial Cell Urine Auto >30 /lpf (0-5); Glucose Urine UA Negative (Negative); Ketones Urine Trace (Negative); Leukocyte Esterase Urine Negative (Negative); Nitrite Urine Negative (Negative); Protein Urine 1+ (Negative); RBC Urine Automated 0-4 /hpf (0-4); Specific Gravity Urine 1.025 (1.000-1.030); Urobilinogen Urine Negative (Negative); pH Urine 5.5 (4.5-7.5)
--- NOTE | 2020-08-03 07:25 | XRay Report ---
XR chest 1V portable CLINICAL HISTORY: SEPSIS COMPARISON STUDY: Chest radiograph March 09, 2018. FINDINGS: Lung volumes are normal. There is no pneumothorax or pleural effusion. There are mild multi focal bilateral mid and lower lung airspace opacities. Cardiac size is normal. There is no evidence f or pulmonary edema. IMPRESSION: Mild bilateral mid and lower lung airspace opacities which favor an infectious process s uch as viral pneumonia. Radiographic follow-up to ensure resolution is recommended. ACT 112: Negative or not required by law. Electronically signed by: Moose Maldonado M.D. 08/03/2020 7:24 AM
--- NOTE | 2020-08-03 07:26 | XRay Report ---
KUB CLINICAL HISTORY: vomiting COMPARISON STUDY: KUB February 28, 2019. FINDINGS: Left femoral internal fixation is partially imaged. The bowel gas pattern is normal. There is no evidence for a bowel obstruction. Left pelvic calcification is unchanged. This represents a phl ebolith. IMPRESSION: No evidence for a bowel obstruction. ACT 112: Negative or not required by law. Electronically signed by: Moose Maldonado M.D. 08/03/2020 7:24 AM
[2020-08-03] MEDS: FLUTICASONE/VILANTEROL 200/25MCG 14 PUFFS/INHALER INH SCH (09:13)
[2020-08-03] MEDS: ESCITALOPRAM OXALATE 10 MG TAB PO SCH (09:14)
[2020-08-03] MEDS: CHOLECALCIFEROL 1,000 UNITS 25 MCG TAB PO SCH (09:15)
[2020-08-03] MEDS: PANTOprazole 40 MG TAB PO SCH (09:16)
[2020-08-03] MEDS: THEOPHYLLINE 400 MG EXTENDED REL TAB PO SCH ×2 (09:16→20:17)
[2020-08-03] MEDS: carvediloL 6.25 MG TAB PO SCH ×2 (09:17→20:15)
[2020-08-03] MEDS: FUROSEMIDE 20 MG TAB PO SCH (09:17)
[2020-08-03] MEDS: dexAMETHasone 6 MG in SYRINGE 0 ML IV SCH (09:17)
--- NOTE | 2020-08-03 11:47 | Electrocardiogram Report ---
Test Reason : Blood Pressure : / mmHG Vent. Rate : 083 BPM Atrial Rate : 083 BPM P-R Int : 126 ms QRS Dur : 092 ms QT Int : 344 ms P-R-T Axes : 060 020 026 degrees QTc Int : 404 ms Normal sinus rhythm Normal ECG When compared with ECG of 21-APR-2014 07:41, No significant change was found Confirmed by Gregorio Pantoja ([id number]) on 08/03/2020 11:47:19 AM Referred By: REFERRED SELF Confirmed By:Gregorio Pantoja
[2020-08-03] MEDS ORDERED: RIVAROXABAN 10 MG TABLET PO SCH (17:30)
--- NOTE | 2020-08-03 17:37 | Hospitalist Progress Note ---
Date of Service August 03, 2020 Assessment & Plan (1) Pneumonia due to 2019 novel coronavirus: Patient with Covid-19 PNA, hypoxia on arrival to the ER. Symptoms have been ongoing for the last week, worse over the last 3 days. She is currently doing well on 2L NC with pulse ox 91% CBC, CMP within normal limits, troponin negative, procalcitonin negative Blood cultures no growth to date Urinalysis negative Chest x-ray with bibasilar infiltrates consistent with viral pneumonia With fevers here on arrival Feeling much better today after fever gone away, on supplemental O2, and after receiving dexamethasone and Remdesivir -Continued stay, but may be able to be discharged home tomorrow after a two-step walk test if still requiring supplemental O2 -Continue supplemental O2 as needed to maintain saturations 92% -Continue dexamethasone 6mg IV daily -Continue remdesivir per protocol -Continue Tylenol, Albuterol, Zofran, Tessalon PRN -Continue IS and Flutter valve -Continue vitamin D supplementation -Changed to Xarelto instead of Lovenox and she should continue Xarelto 10 mg daily for 35 days given she is very high risk for DVT/PE with previous history of DVT/PE and now with acute illness and has been laying in bed for several days and with Covid-19. Discussed this with patient she is agreeable. She has not had any problems with bleeding in the past and was on anticoagulation for 6 months for her PE previously. Can try to make sure that she has the coupon for the $10 monthly supply of Xarelto at the time of discharge (2) Sarcoidosis: Chronic. Patient follows with Pulmonary, no acute issues -Continue Fluticasone/Vilanterol -Albuterol PRN (3) Asthma: Patient follows with Pulmonary -Continue Theophylline ER 400mg po BID -Continue Singulair, Zyrtec -Continue albuterol as needed Continue Decadron (4) Hypertension: Blood pressure stable -Continue Carvedilol 6.25mg po BID -Continue to monitor (5) Depression: Chronic. -Continue Escitalopram 5mg po daily (6) GERD without esophagitis: Chronic. Stable -Continue Protonix 40mg po daily F/E/N - Heplock. Monitor electrolytes, PO as tolerated with Zofran PRN Ppx -Xarelto Code - DNR/DNI per discussion with patient Disposition-possible discharge to home on Tuesday if continues to improve, will need a two-step walk test Admission and Anticipated Discharge Date Admission Date: August 03, 2020 Subjective Patient feels so much better, but is still 91% on 2 L nasal cannula. She has a history of PE in the past after hip surgery but denies any chest pain now, no shortness of breath No nausea/vomiting, her diarrhea is also resolved. She had a fever last night which is now improved. She has been ambulating around the room. Review of Systems Review of Systems: All systems reviewed & are unremarkable except as noted in HPI & below Physical Exam Constitutional: WD/WN, vitals as above Eyes: + anicteric sclerae Neck: trachea midline, no thyromegaly Respiratory: normal respiratory effort (With nasal cannula in place) Auscultation: + crackles (Mild at the bases); no rhonchi and no wheezes Cardiovascular: RRR, no murmur, no edema Chest (Breasts): Chest: normal inspection of chest Gastrointestinal (Abdomen): normal bowel sounds, soft, nontender, no hepatosplenomegaly Musculoskeletal: Extremities: extremities normal to inspection; no cyanosis and no clubbing Skin: no rashes, warm and dry Neurologic: moves all extremities and awake; no focal motor deficits Psychiatric: A+Ox3, euthymic affect Lymphatic: no lymphedema Results & Data Results & Data ([facility]) Vital Signs (Past 12 Hours) Vital Signs Temp Pulse Resp BP Pulse Ox 08/03/20 15:44 36.7 C 68 21 122/60 93 08/03/20 11:12 36.7 C 70 18 134/62 95 08/03/20 07:31 36.7 C 62 18 117/55 L 94 PG Care Time/CCT Total # of Minutes Spent Total Time Spent with Patient: Total time spent is greater than 50% in coordination of care (as documented) at patient's floor/unit and/or counseling patient: Coding Level of Care Code None Diagnoses Pneumonia due to 2019 novel coronavirus U07.1; J12.82 Sarcoidosis D86.9 Asthma J45.909 Asthma severity: mild Asthma persistence: unspecified Asthma complication type: uncomplicated Hypertension I10 Hypertension type: essential hypertension Depression F32.9 Depression Type: major depressive disorder Major depression recurrence: unspecified whether recurrent Active/Remission status: remission status unspecified GERD without esophagitis K21.9 (1) Asthma Asthma severity: mild Asthma persistence: unspecified Asthma complication type: uncomplicated Qualified Code(s): J45.909 - Unspecified asthma, uncomplicated (2) Hypertension Hypertension type: essential hypertension Qualified Code(s): I10 - Essential (primary) hypertension (3) Depression Depression Type: major depressive disorder Major depression recurrence: unspecified whether recurrent Active/Remission status: remission status unspecified Qualified Code(s): F32.9 - Major depressive disorder, single episode, unspecified
[2020-08-03] MEDS ORDERED: ASPIRIN 81 MG ECTAB PO SCH (21:00)
[2020-08-03] MEDS ORDERED: CETIRIZINE HCL 10 MG TABLET PO PRN (21:00)
[2020-08-03] MEDS ORDERED: ATORVASTATIN 20 MG TAB PO SCH (21:00)
[2020-08-03] MEDS ORDERED: MONTELUKAST SODIUM 10 MG TABLET PO SCH (21:00)
[2020-08-04 06:41] LABS: Basophils # (auto) 0.01 K/uL (0-0.2); Basophils % (auto) 0.2 %; Hematocrit (blood only) 39.9 % (37-47); Immature Granulocytes # (auto) 0.01 K/uL (0.00-0.02); Immature Granulocytes % (auto) 0.2 %; Lymphocytes # (auto) 1.11 K/uL (1.2-3.4); Lymphocytes % (auto) 26.9 %; Mean Corpuscular Hemoglobin 30.5 pg (25-34); Mean Corpuscular Hgb Conc 32.6 g/dL (32-36); Mean Corpuscular Volume 93.7 fL (80-100); Mean Platelet Volume 10.1 fL (7.4-10.4); Monocytes # (auto) 0.44 K/uL (0.11-0.59); Monocytes % (auto) 10.7 %; Neutrophils # (auto) 2.56 K/uL (1.4-6.5); Platelet Count 169 K/uL (130-400); RDW Coefficient of Variation 13.9 % (11.5-14.5); RDW Standard Deviation 47.8 fL (36.4-46.3); Red Blood Count 4.26 M/uL (4.2-5.4); White Blood Count 4.13 K/uL (4.8-10.8)
[2020-08-04 07:29] LABS: Albumin Level 2.8 gm/dl (3.4-5.0); BUN Creatinine Ratio 32.3 (10-20); C Reactive Protein 3.89 mg/dl (0-0.29); Calcium 9.1 mg/dl (8.5-10.1); Est GFR (African American) 77.2; Est GFR (Non-African American) 66.6; Magnesium 2.5 mg/dl (1.8-2.4); Potassium 3.7 mmol/L (3.5-5.1)
[2020-08-04 07:32] LABS: Albumin Globulin Ratio 0.8 (0.9-2); Bilirubin,Total 0.4 mg/dl (0.2-1); Globulin 3.7 gm/dl (2.5-4.0); Total Protein 6.5 gm/dl (6.4-8.2)
[2020-08-04] MEDS: CHOLECALCIFEROL 1,000 UNITS 25 MCG TAB PO SCH (08:21)
[2020-08-04] MEDS: dexAMETHasone 6 MG in SYRINGE 0 ML IV SCH (08:21)
[2020-08-04] MEDS: FLUTICASONE/VILANTEROL 200/25MCG 14 PUFFS/INHALER INH SCH (08:22)
[2020-08-04] MEDS: FUROSEMIDE 20 MG TAB PO SCH (08:22)
[2020-08-04] MEDS: ESCITALOPRAM OXALATE 10 MG TAB PO SCH (08:22)
[2020-08-04] MEDS: THEOPHYLLINE 400 MG EXTENDED REL TAB PO SCH (08:22)
[2020-08-04] MEDS: PANTOprazole 40 MG TAB PO SCH (08:22)
[2020-08-04] MEDS: carvediloL 6.25 MG TAB PO SCH (08:23)
[2020-08-04] MEDS ORDERED: REMDESIVIR 100 MG in SODIUM CHLORIDE 0.9% 230 ML IV SCH (12:00)
--- NOTE | 2020-08-04 12:10 | Discharge Summary ---
Date of Service August 04, 2020 Admission HPI Per Admitting Provider Che Pavon is a 69yo female with history of Sarcoidosis for which she follows with Pulmonary. Patient began developing fevers, body aches, fatigue and weakness approximately one week ago. Also with vomiting and diarrhea. She has been unable to tolerate PO intake x 3 days. She has been taking care of her at home who was recently diagnosed with Covid-19. She does admit to SOB at rest and with mild exertion Has not yet received her Covid-19 vaccines yet Does not use O2 at home Patient febrile at 38.7 on arrival, hypoxic to 88% on room air Principal Diagnosis COVID 19 pneumonia Discharge Exam Constitutional WD/WN, vitals as above + ill appearing Neck trachea midline, no thyromegaly Respiratory normal respiratory effort, lungs clear to auscultation Cardiovascular RRR, no murmur, no edema Gastrointestinal (Abdomen) normal bowel sounds, soft, nontender, no hepatosplenomegaly Musculoskeletal no cyanosis or clubbing, extremities motor strength 5/5 Skin no rashes, warm and dry Neurologic patellar DTR's 2+ bilat, sensation intact and PERRL, EOMI, accommodation nl, no face palsy, no dysarthria Psychiatric A+Ox3, euthymic affect Lymphatic no cervical or axillary lymphadenopathy Discharge Data Allergies Allergy/AdvReac Type Severity Reaction Status Date / Time erythromycin base Allergy Mild RASH Verified 08/02/20 20:50 tiotropium Allergy Mild RASH Verified 08/02/20 20:50 amoxicillin Allergy Unknown GI UPSET Verified 08/02/20 20:50 clavulanic acid Allergy Unknown AUGMENTIN Verified 08/02/20 20:50 Cipro AdvReac Mild vomiting Verified 04/15/16 22:58 ciprofloxacin AdvReac Mild vomiting Verified 08/02/20 20:50 Quinolones AdvReac Mild CIPRO-VOMIT Verified 08/02/20 20:50 ING Consultations 08/02/20 22:41 ED Decision to Admit Stat Hospital Course (1) Pneumonia due to 2019 novel coronavirus: Patient with Covid-19 PNA, hypoxia on arrival to the ER. Symptoms have been ongoing for the last week, worse over the last 3 days. initially admitted on 2L NC, titrated down to room air, breathing comfortably performed 2 step ambulatory study, no oxygen needed at rest or on exertion no fever, breathing better, mild cough treated with Dexamethasone 6mg IV daily, supportive care patient anxious to get home, take care of her who also has COVID discharge home on dexamethasone 6mg PO daily x 8 more days due to her h/o DVT, will place on Xarelto 10mg daily x 35 days to prevent DVT instructed to stay well nourished, well hydrated, get plenty of rest, remain in isolation until 10 days from last fever (2) Sarcoidosis: Chronic. Patient follows with Pulmonary, no acute issues -Continue Fluticasone/Vilanterol -Albuterol PRN (3) Asthma: Patient follows with Pulmonary -Continue Theophylline ER 400mg po BID -Continue Singulair, Zyrtec -Continue albuterol as needed Continue Decadron on discharge for treatment of COVID no wheezing on exam at time of discharge (4) Hypertension: Blood pressure stable -Continue Carvedilol 6.25mg po BID (5) Depression: Chronic. -Continue Escitalopram 5mg po daily (6) GERD without esophagitis: Chronic. Stable -Continue Protonix 40mg po daily Total Time Total Time Spent Total Time Spent (In Minutes): 33 minutes Total Time Includes: Examination of the Patient, Discharge Planning and Medication Reconciliation Discharge Plan Discharge Items Patient Disposition: Home - Self-Care Reason For Visit: COVID -19 Discharge Diagnosis: COVID 19 pneumonia Acute hypoxic respiratory failure Condition on Discharge: Good Goals: stay well nourished, well hydrated complete course of dexamethasone complete 35 days of Xarelto 10mg daily Activity: Resume your previous activity Exercise/Sports: Gradually increase as tolerated Driving/Machine Use: No limitations Weightbearing: Full weightbearing Non-emergency contact: Primary Care Provider Call non-emergency contact if: you have any medication questions and your symptoms worsen Follow-up/Referrals: Gregorio Turk MD [Primary Care Provider] - 08/11/20 9:15 am (one week THIS APT IS A TELE-HEALTH APT.) Diet: Regular Addtl Attending Provider Instructions: Medications: - DEXAMETHASONE: 6mg daily for 8 more days - XARELTO: 10mg daily for 35 days to reduce risk of blood clots given your history of blood clots COVID 19 pneumonia and acute hypoxia weaned off of oxygen recommend you complete 8 more days of dexamethasone stay well nourished and well hydrated CDC recommends you remain isolated 10 days from onset of symptoms return to the hospital if you start to feel worse, specifically if you get more short of breath and if your oxygen saturations are less than 88% on room air at rest Pending Studies at Discharge: No Stand-Alone Forms: My [facility], Smoking Cessation Medications and DC Order Prescriptions: New Xarelto 10 mg Tablet 10 mg PO QDD 35 Days Qty: 35 RF: 0 dexamethasone 4 mg tablet 6 mg PO DAILY 8 Days Qty: 12 RF: 0 Continued fluticasone furoate-vilanterol 200-25 mcg/dose blister with device 1 inh inhalation DAILY Qty: 3 RF: 1 pantoprazole 40 mg tablet,delayed release (DR/EC) 40 mg PO DAILY Qty: 90 RF: 1 potassium chloride 20 mEq tablet,ER particles/crystals 20 meq PO DAILY Qty: 90 RF: 1 carvedilol 6.25 mg tablet 6.25 mg PO BID Qty: 180 RF: 1 theophylline 400 mg tablet extended release 24 hr 400 mg PO BID Qty: 180 RF: 1 furosemide 20 mg tablet 20 mg PO DAILY Qty: 90 RF: 1 escitalopram oxalate 5 mg tablet 5 mg PO DAILY Qty: 90 RF: 1 methylprednisolone [Medrol (Ghassan)] 4 mg tablets,dose pack See Rx Instructions .Route .COMPLEX Qty: 21 RF: 0 sulfamethoxazole-trimethoprim 800-160 mg tablet 1 tab PO Q12H Qty: 30 RF: 0 multivitamin Tablet 1 tab PO DAILY RF: 0 aspirin [Aspirin Low Dose] 81 mg Tablet,Delayed Release (Dr/Ec) 81 mg PO HS RF: 0 albuterol sulfate 90 mcg/actuation HFA aerosol inhaler 2 puff Inhalation QID PRN (Reason: Shortness Of Breath) RF: 0 cholecalciferol (vitamin D3) [Vitamin D3] 2,000 unit Capsule 2,000 unit PO DAILY RF: 0 Probiotic 5 billion cell Capsule, Sprinkle 1 cap PO DAILY RF: 0 Estroven 155 mg Capsule 155 mg PO DAILY RF: 0 cyanocobalamin (vitamin B-12) [Vitamin B-12] 1,000 mcg Tablet 1,000 mcg PO DAILY RF: 0 acetaminophen [Tylenol Extra Strength] 500 mg Tablet 500 mg PO Q6H PRN (Reason: Pain or Fever) RF: 0 atorvastatin 20 mg tablet 20 mg PO HS RF: 0 montelukast 10 mg tablet 10 mg PO HS RF: 0 fluticasone propionate [Flonase Allergy Relief] 50 mcg/actuation spray,suspension 2 spray INTRANASAL DAILY PRN (Reason: Allergy Relief) RF: 0 levocetirizine 5 mg tablet 5 mg PO HS RF: 0 Discharge Orders: Discharge Order (Routine); Ordered 08/04/20 Ordered By: Rommel Bourgeois Admission Data Admit Date/Time: 08/03/20 00:22 Attending Provider: Rommel Bourgeois Admit Provider: Aury Camp Primary Care Provider: Gregorio Turk Other Providers: Aury Camp Other Interventions: Discharge Summary Assessment (RN) Last Done: 08/04/20 12:48 Coding Level of Care Code D/C Day Management >30 mins Diagnoses Pneumonia due to 2019 novel coronavirus U07.1; J12.82 Sarcoidosis D86.9 Asthma J45.909 Asthma complication type: uncomplicated Asthma persistence: unspecified Asthma severity: mild Hypertension I10 Hypertension type: essential hypertension Depression F32.9 Active/Remission status: remission status unspecified Depression Type: major depressive disorder Major depression recurrence: unspecified whether recurrent GERD without esophagitis K21.9
== END 2020-08-04 13:27 | disposition home or self-care (01) ==
LOC: ED 19:47 → SUATTDRO 08-03 00:22 → 2E 08-03 00:22 → INTOOBSV 08-03 00:22 → 2E 08-03 01:07

== ENCOUNTER 2023-05-19 11:26 | Inpatient (IN) ==
--- NOTE | 2023-05-19 12:23 | Emergency Department Note ---
ED Provider Note History of Present Illness Chief Complaint: Infection Stated Complaint: LEFT LEG INFECTION, REF BY DOC Time Seen by Provider: 05/19/23 12:22 This is a 72-year-old female accompanied by her granddaughter who returns to the emergency department, referred by her primary care provider to be admitted for IV antibiotics secondary to left leg pain and presumed cellulitis. Patient was seen in this emergency department 3 days ago for cellulitis of the left leg. Ultrasound was negative for DVT. She was started on Keflex and doxycycline which she has been taking. Patient states that the redness has improved but the pain has worsened to the point where she cannot walk on the leg any longer. She has been taking the antibiotics as prescribed. Has been trying to elevate her leg. Describes the pain in her leg as a pressure like it needs to be opened up and drained. Today she noticed clear fluid seeping out of the inside part of her lower leg where her prior surgical scar is present from an old orthopedic injury. She endorses chills last night but did not check her temperature. States that it hurts in her lower leg when she moves her toes. Has a lot of pain above the surgical scar as well. Patient saw her primary care provider today who felt that she needed to be admitted for IV antibiotics. Patient endorses a significant history with the left leg requiring surgical fixation and subsequent explantation due to allergic reaction. She states that she developed compartment syndrome in this leg during that injury. She also endorses an itchy patch on her outer lower leg which has come and gone since she had shingles several months ago. She continues to scratch this area. Denies any shortness of breath or chest pain. Home Medications Medication Instructions Recorded Confirmed Type Lactobacil.acidophilus-Bifido.animalis 1 cap PO QAM 02/25/18 05/19/23 History 5 billion cell sprinkle capsule (Probiotic) aspirin 81 mg tablet,delayed 81 mg PO HS 02/25/18 05/19/23 History release (Prashanth Low Dose Aspirin) multivitamin (Daily Multi-Vitamin 1 tab PO QAM 02/25/18 05/19/23 History tablet) soy isoflavone-black cohosh 155 mg PO QAM 02/25/18 05/19/23 History root-magnolia bark 155 mg capsule (Estroven) cyanocobalamin (vitamin B-12) 1,000 mcg PO QAM 08/02/20 05/19/23 History 1,000 mcg tablet (Vitamin B-12) elderberry fruit 200 mg capsule 200 mg PO QAM 04/24/21 05/19/23 History zinc acetate 50 mg (zinc) capsule 50 mg PO QAM 04/24/21 05/19/23 History (Galzin) fluticasone furoate 200 1 inh inhalation QAM 09/30/22 05/19/23 History mcg-vilanterol 25 mcg/dose inhalation powder (Breo Ellipta) pantoprazole 40 mg tablet,delayed 40 mg PO DAILYBB #90 tabs 10/28/22 05/19/23 Rx release (Protonix) levocetirizine 5 mg tablet (Xyzal) 5 mg PO HS #90 tabs 01/20/23 05/19/23 Rx atorvastatin 40 mg tablet 40 mg PO QPM #90 tabs 03/01/23 05/19/23 Rx albuterol sulfate 90 mcg/actuation 2 puff inhalation QID PRN 04/25/23 05/19/23 Rx aerosol inhaler (ProAir HFA) Shortness Of Breath #8.5 grams fluticasone propionate 93 1 spray intranasal BID #16 mL 04/27/23 05/19/23 Rx mcg/actuation breath activated aerosol (Xhance) ascorbic acid (vitamin C) 100 mg 100 mg PO QAM 05/16/23 05/19/23 History tablet carvedilol 6.25 mg tablet 6.25 mg PO BID 05/16/23 05/19/23 History cephalexin 500 mg capsule 500 mg PO QID 7 days #28 caps 05/16/23 05/19/23 Rx cholecalciferol (vitamin D3) 25 1,000 mcg PO QAM 05/16/23 05/19/23 History mcg (1,000 unit) tablet doxycycline hyclate 100 mg capsule 100 mg PO BID 7 days #14 caps 05/16/23 05/19/23 Rx famotidine 40 mg tablet 40 mg PO BID 05/16/23 05/19/23 History montelukast 10 mg tablet 10 mg PO QPM 05/16/23 05/19/23 History omalizumab 150 mg/mL subcutaneous 300 mg subcut .Q2W 05/16/23 05/19/23 History syringe (Xolair) potassium chloride 20 mEq 20 meq PO QAM 05/16/23 05/19/23 History tablet,extended release(part/cryst) revefenacin 175 mcg/3 mL solution 175 mcg inhalation DAILY PRN 05/16/23 05/19/23 History for nebulization (Yupelri) Shortness Of Breath Or Wheezing escitalopram oxalate 5 mg tablet 5 mg PO QAM #90 tabs 05/18/23 05/19/23 Rx (Lexapro) furosemide 20 mg tablet (Lasix) 20 mg PO QAM #90 tabs 05/18/23 05/19/23 Rx calcitriol 0.25 mcg capsule 0.25 mcg PO QAM 05/19/23 05/19/23 History doxepin 25 mg capsule 25 mg PO QPM 05/19/23 05/19/23 History theophylline 400 mg 400 mg PO QAM 05/19/23 05/19/23 History tablet,extended release 24 hr Allergies Allergy/AdvReac Type Severity Reaction Status Date / Time erythromycin base Allergy Mild RASH Verified 05/19/23 15:13 tiotropium Allergy Mild RASH Verified 05/19/23 15:13 amoxicillin AdvReac Mild GI UPSET Verified 05/19/23 15:13 Cipro AdvReac Mild vomiting Verified 04/15/16 22:58 ciprofloxacin AdvReac Mild vomiting Verified 05/19/23 15:13 clavulanic acid AdvReac Mild Gastrointestinal Verified 05/19/23 15:13 Upset Quinolones AdvReac Mild CIPRO-VOMIT Verified 05/19/23 15:13 ING Past Med/Surg History Medical History Pruritic rash Abnormal CT scan, chest Sarcoidosis Chronic dyspnea Moderate persistent asthma Left ankle injury Rectal bleed Epistaxis Depression Fever Hypoxia Pneumonia due to 2019 novel coronavirus Hyperparathyroidism Vitamin D deficiency Degeneration of cervical intervertebral disc Eosinophilic gastroenteritis and colitis GERD without esophagitis History of pulmonary embolism Hypertension Osteoporosis Intertrochanteric fracture of left hip (04/14/14) Surgical History H/O sinus surgery Hx of tonsillectomy History of appendectomy (06/06/12) Hx of appendectomy History of hip surgery History of ankle surgery Family History Grandmother (Paternal) Arthritis Myocardial infarction Aunt Rheumatoid arthritis Breast cancer Family/Other Diabetes Myocardial infarction Father Coronary heart disease Myocardial infarction Mother Myocardial infarction Denies family history of Ovarian cancer Prostate cancer Lung cancer Colorectal cancer Social History Smoking Status: Never smoker Second Hand Exposure: No; Do You Dip or Chew Tobacco: No; Hx Alcohol Use: No Hx Substance Use: No Preferred Language: Tajik Communication Ability: Effective Visual Impairment: No Limitations Hearing Ability: Normal Manager Brand Required: No Beliefs That Will Affect Care: None marital status: Current Living Situation: Family Current Living Situation Comment: lives with and daugher, patient is 's primary caregiver current occupational status: retired How many Children do You have: 3 Other Information That Helps Us Care for You: No Feels Safe at Home: Yes Safety Concerns: Feels Safe At This Time Childhood Exposure to Second-Hand Smoke: No Diet: regular caffeine: No Dental Care, Regularly: No Physical Activity Frequency: Daily Seatbelt Use: always Sunscreen Use: No (Doesn't go out in the sun ) Assistive Devices: Denture - Upper, Denture - Lower and Glasses Physical Exam Vital Signs Vital Signs - 24 hr 05/19/23 11:43 05/19/23 12:28 05/19/23 12:28 Temperature 97.3 F L Temperature Source Temporal Artery Scan Pulse Rate 72 Pulse Rate [Apical] 69 Respiratory Rate 22 18 Respiratory Effort / Characteristics Non-Labored Respiratory Depth Normal Blood Pressure 154/82 H Blood Pressure [Right Arm] 142/81 H Blood Pressure Mean 106 Blood Pressure Mean [Right Arm] 101 Pulse Oximetry 97 97 Oxygen Delivery Method Room Air Room Air Sepsis Recent Fever Within 48 Hours No Sepsis New/Unexplained Change in Mental Status N/A Sepsis Action Taken by Nursing No Action Required 05/19/23 12:35 05/19/23 12:42 05/19/23 14:00 Temperature Temperature Source Pulse Rate 77 Pulse Rate [Apical] 71 Respiratory Rate 18 Respiratory Effort / Characteristics Non-Labored Respiratory Depth Normal Blood Pressure Blood Pressure [Right Arm] 181/94 H Blood Pressure Mean Blood Pressure Mean [Right Arm] 123 Pulse Oximetry 98 97 Oxygen Delivery Method Room Air Sepsis Recent Fever Within 48 Hours Sepsis New/Unexplained Change in Mental Status Sepsis Action Taken by Nursing CONSTITUTIONAL: Well developed, well nourished, in no acute distress, pleasant EYES: conjunctivae normal, extraocular muscles intact. NECK: Full active range of motion. RESPIRATORY: Breathing unlabored and symmetric. Lungs clear to auscultation bilaterally. No wheeze, rales, or rhonchi. CARDIOVASCULAR: Regular rate and rhythm. No murmurs, rubs, or gallops. DP pulses 2+ bilaterally MUSCULOSKELETAL: Left lower extremity: There is edema and induration along the medial aspect of the lower calf region with associated tenderness. There is erythema extending to the mid jacobs however this is very light-colored. There is dark purple skin staining about the region of where the medial and lateral surgical scars are located. There is trace serosanguineous fluid leakage from the medial scar which does not appear to be dehisced. Foot with 1+ pitting edema. No tenderness in the medial thigh. There is no crepitus in the leg. SKIN: Ensign, warm, dry. There are several patches of excoriation along the anterolateral ankle and lateral lower leg NEUROLOGIC: Awake, alert, oriented. No sensory deficits in bilateral toes. Course Administered Medications Acetaminophen (Acetaminophen 325 Mg Tab) 650 mg PO Q4H PRN PRN Reason: pain/fever Stop: 06/18/23 17:14 Last Admin: 05/19/23 20:54 Dose: 650 mg Documented By: SAAD Enoxaparin Sodium (Enoxaparin Inj 40 Mg/0.4 Ml Syr) 40 mg SQ Q24H JUNITO Stop: 06/18/23 17:59 Last Admin: 05/19/23 19:29 Dose: 40 mg Documented By: SAAD Discontinued Medications Vancomycin HCl 1,750 mg/ (Sodium Chloride) 535 mls @ 200 mls/hr IV NOW ONE Stop: 05/19/23 15:28 Last Infusion: 05/19/23 16:20 Dose: Infused Documented By: Admin: 05/19/23 13:35 Dose: 200 mls/hr Documented By: NITHIN Ceftriaxone Sodium (Rocephin) 2,000 mg in 50 mls @ 100 mls/hr IV NOW STA Stop: 05/19/23 13:17 Last Infusion: 05/19/23 13:35 Dose: Infused Documented By: Admin: 05/19/23 13:04 Dose: 100 mls/hr Documented By: NITHIN Ioversol (Optiray 320 500ml) 94 ml IV ONCE ONE Stop: 05/19/23 14:14 Last Admin: 05/19/23 14:13 Dose: 94 ml Documented By: EMILY Morphine Sulfate (Morphine Sulfate 2 Mg/Ml Carp) 2 mg IV NOW STA Stop: 05/19/23 12:43 Last Admin: 05/19/23 12:46 Dose: 2 mg Documented By: NITHIN Medical Decision Making Differential Diagnosis Cellulitis, abscess, wound dehiscence, osteomyelitis, dependent edema, sepsis, MRSA, compartment syndrome, necrotizing fasciitis, DVT, among other pathology Medical Records Attestation: I reviewed the patient's medical records. (Reviewed primary care notes from today referring the patient to the emergency department for admission and IV antibiotics. Reviewed prior ED notes from 3 days ago.) Laboratory Data 05/19/23 12:24 05/19/23 12:24 Lab Results 05/19/23 05/19/23 05/19/23 Range/Units 12:24 13:04 14:37 WBC 7.94 (4.8-10.8) K/ul RBC 4.56 (4.20-5.40) M/uL Hgb 13.1 (12.0-16.0) g/dl Hct 42.0 (37.0-47.0) % MCV 92.1 (80.0-100.0) fL MCH 28.7 (25.0-34.0) pg MCHC 31.2 L (32.0-36.0) g/dL RDW Std Deviation 45.8 (36.4-46.3) fL RDW Coeff of Jose 13.5 (11.5-14.5) % Plt Count 302 (130-400) K/uL MPV 9.9 (9.4-12.4) fL Immature Gran % (Auto) 0.8 % Neut % (Auto) 63.6 % Lymph % (Auto) 22.8 % [place] % (Auto) 6.3 % Eos % (Auto) 5.7 % Baso % (Auto) 0.8 % Neut # (Auto) 5.06 (1.40-6.50) K/uL Lymph # (Auto) 1.81 (1.20-3.40) K/uL [place] # (Auto) 0.50 (0.11-0.59) K/uL Eos # (Auto) 0.45 (0.00-0.50) K/uL Baso # (Auto) 0.06 (0.00-0.20) K/uL Immature Gran # (Auto) 0.06 (0.01-0.20) K/uL PT Cancelled 10.8 INR Cancelled 1.0 APTT Cancelled 29 PTT Ratio Cancelled 1.0 Sodium 139 (136-145) mmol/L Potassium 3.8 (3.5-5.1) mmol/L Chloride 107 (98-107) mmol/L Carbon Dioxide 25 (21-32) mmol/L Anion Gap 7 (3-11) BUN 16 (6-23) mg/dl Creatinine 1.02 (0.6-1.2) mg/dl Est Cr Clr Drug Dosing 51.4 ml/min Est GFR ( Amer) 63.2 ml/min Est GFR (Non-Af Amer) 54.5 ml/min BUN/Creatinine Ratio 15.7 (10-20) Glucose 89 (70-99(Fasting)) mg/dl Lactate 1.2 (0.4-2.0) mmol/L Calcium 10.2 (8.6-10.3) mg/dl Magnesium 2.0 (1.7-2.4) mg/dl Total Bilirubin 0.5 (0.2-1.0) mg/dl AST 10 L (13-39) U/L ALT 7 (7-52) U/L Alkaline Phosphatase 96 (34-104) U/L Total Protein 8.0 (6.0-8.3) gm/dl Albumin 4.0 (3.4-5.0) gm/dl Globulin 4.0 (2.5-4.0) gm/dl Albumin/Globulin Ratio 1.0 (0.9-2) Procalcitonin 0.03 (0-0.5) ng/ml Imaging Data Radiologist's Impression: Chest X-Ray 05/19/23 11:47 XR chest 1V portable CLINICAL HISTORY: Sepsis COMPARISON STUDY: Chest radiograph August 02, 2020. Chest CT September 01, 2020. FINDINGS: Lung volumes are normal. Linear left basilar densities favor atelectasis or scarring. There is no pneumothorax or pleural effusion. Cardiac size is stable. Mediastinal contours are normal. There is no evidence for pulmonary edema. IMPRESSION: No acute cardiopulmonary findings. ACT 112: Negative or not required by law. Electronically signed by: Moose Maldonado M.D. 05/19/2023 2:[address] 05/19/23 12:41 CT tib/fib LT w con CT DOSE: 1378.57 mGy.cm CLINICAL HISTORY: infection left mid/lower leg TECHNIQUE: Multiaxial CT images of the left lower leg was performed following the intravenous administration of contrast and reformatted in the sagittal and coronal plane. A dose lowering technique was utilized adhering to the principles of ALARA. COMPARISON STUDY: None. FINDINGS: No acute fracture or dislocation within the left tibia or fibula. Partially visualized intramedullary enedina within the left femur. No bony destructive changes to suggest an osteomyelitis. Skin thickening and subcutaneous edema within the mid to distal left lower leg, left ankle, and dorsum of the foot. This favors a cellulitis. No loculated fluid collections to suggest an abscess. Multiple superficial varicosities are noted. No knee effusion. Old, healed left ankle fracture. There is a screw tract within the distal tibia consistent with old postoperative change. IMPRESSION: 1. Subcutaneous edema and skin thickening within the mid to distal left lower leg, left ankle, and dorsum of the left foot consistent with a cellulitis. No loculated fluid collections to suggest an abscess. 2. No underlying bony destruction to suggest an osteomyelitis. 3. No acute fracture or dislocation within the left lower leg. ACT 112: Negative or not required by law. Electronically signed by: Doron Richey M.D. 05/19/2023 2:42 PM MDM Narrative This is a 72-year-old female who is referred back to the emergency department by her primary care provider for admission and IV antibiotics. She was treated for cellulitis of the left lower leg 3 days ago in this emergency department with Keflex and doxycycline. Endorses chills and worsening pain in the leg however states that the erythema has improved in the jacobs region. See above for further details. Patient not tachycardic, afebrile, overall well-appearing. She does have significant tenderness in the medial lower calf region just superior to the prior surgical scar which does have some very minimal serosanguineous fluid leakage through the scar. The erythema about the mid jacobs does appear to be improving compared to 3 days ago. Neurovascular intact with good pedal pulses. IV was inserted and labs were obtained via nursing protocol. Case reviewed with ED attending Dr. Curtis. Patient accepted a small dose of morphine for pain control. Labs: No leukocytosis or anemia. Coags normal. No electrolyte disturbance. Procalcitonin normal. Lactate normal. Stable kidney function. CT of the leg with contrast demonstrates subcutaneous edema and skin thickening within the mid to distal lower leg, ankle, and foot consistent with cellulitis. No fluid collection. No osteomyelitis. I reviewed antibiotic recommendations with the ED clinical pharmacist who recommended ceftriaxone and vancomycin. These were both administered. Due to the patient experiencing chills last night with worsening pain and CT continuing to demonstrate cellulitis, admission was discussed with the patient as well as the [facility] hospitalist group. Failure of oral antibiotics. Patient will be admitted for further management. Of note, when I reevaluated the patient at bedside after receiving the antibiotics, she had developed an increase in the erythema only in the location where the infection was present, no reaction anywhere else. Unclear of this etiology though this was discussed with Dr. Lepe Hospitalist. Patient did not have any increase in pain with this erythema. Impression Cellulitis of left lower leg Discharge Plan Visit Data Chief Complaint: Infection Stated Complaint: LEFT LEG INFECTION, REF BY DOC ED Provider: Gregorio Curtis ED Midlevel Provider: Cody Ashley Discharge Problem: Cellulitis of left lower leg Patient Disposition: Admitted As Inpatient Condition: Good Discharge Instructions Interventions: ED Discharge Assessment Last Done: 05/19/23 16:50
[2023-05-19] MEDS: MoRPHine SULFATE 2 MG/ML CARP IV STA (12:46)
[2023-05-19] MEDS ORDERED: VANCOMYCIN CONSULT ACTIVE PRN (12:48)
--- NOTE | 2023-05-19 12:49 | Emergency Department Note ---
ED Visit Note I was consulted by the Advanced Practice Provider Cody Ashley PA-C. I personally made/approved the management plan and take responsibility for the patient management. I performed a substantive portion of the visit. This includes the aspects of: History and physical exam. -MDM -I independently interpreted the following studies: CT of the lower extremity. My interpretation is no definite fracture or free air, final report was reviewed. .
[2023-05-19] MEDS: cefTRIAXone SODIUM 2,000 MG/50 ML BAG IV STA (13:04)
[2023-05-19 13:09] LABS: Basophils # (auto) 0.06 K/uL (0.00-0.20); Basophils % (auto) 0.8 %; Eosinophils # (auto) 0.45 K/uL (0.00-0.50); Eosinophils % (auto) 5.7 %; Hemoglobin 13.1 g/dl (12.0-16.0); Immature Granulocytes # (auto) 0.06 K/uL (0.01-0.20); Immature Granulocytes % (auto) 0.8 %; Lymphocytes # (auto) 1.81 K/uL (1.20-3.40); Lymphocytes % (auto) 22.8 %; Mean Corpuscular Hemoglobin 28.7 pg (25.0-34.0); Mean Corpuscular Hgb Conc 31.2 g/dL (32.0-36.0); Mean Corpuscular Volume 92.1 fL (80.0-100.0); Mean Platelet Volume 9.9 fL (9.4-12.4); Monocytes % (auto) 6.3 %; Neutrophils # (auto) 5.06 K/uL (1.40-6.50); Neutrophils % (auto) 63.6 %; Platelet Count 302 K/uL (130-400); RDW Coefficient of Variation 13.5 % (11.5-14.5); RDW Standard Deviation 45.8 fL (36.4-46.3); Red Blood Count 4.56 M/uL (4.20-5.40); White Blood Count 7.94 K/ul (4.8-10.8)
[2023-05-19 13:29] LABS: BUN Creatinine Ratio 15.7 (10-20); Bilirubin,Total 0.5 mg/dl (0.2-1.0); Calcium 10.2 mg/dl (8.6-10.3); Creatinine Clr Calc Pharmacy 51.4 ml/min; Est GFR (African American) 63.2 ml/min; Est GFR (Non-African American) 54.5 ml/min; Potassium 3.8 mmol/L (3.5-5.1)
[2023-05-19] MEDS: VANCOMYCIN HCL 1,750 MG in SODIUM CHLORIDE 0.9% 500 ML IV ONE (13:35)
[2023-05-19] MEDS: OPTIRAY 320 500ml IV ONE (14:13)
--- NOTE | 2023-05-19 14:35 | XRay Report ---
XR chest 1V portable CLINICAL HISTORY: Sepsis COMPARISON STUDY: Chest radiograph August 02, 2020. Chest CT September 01, 2020. FINDINGS: Lung volumes are normal. Linear left basilar densities favor atelectasis or scarring. There is no pneumothorax or pleural effusion. Cardiac size is stable. Mediastinal contours are normal. The re is no evidence for pulmonary edema. IMPRESSION: No acute cardiopulmonary findings. ACT 112: Negative or not required by law. Electronically signed by: Moose Maldonado M.D. 05/19/2023 2:33 PM
--- NOTE | 2023-05-19 14:43 | CT Scan Report ---
CT tib/fib LT w con CT DOSE: 1378.57 mGy.cm CLINICAL HISTORY: infection left mid/lower leg TECHNIQUE: Multiaxial CT images of the left lower leg was performed following the intravenous adminis tration of contrast and reformatted in the sagittal and coronal plane. A dose lowering technique was utilized adhering to the principles of ALARA. COMPARISON STUDY: None. FINDINGS: No acute fracture or dislocation within the left tibia or fibula. Partially visualized intr amedullary enedina within the left femur. No bony destructive changes to suggest an osteomyelitis. Skin t hickening and subcutaneous edema within the mid to distal left lower leg, left ankle, and dorsum of t he foot. This favors a cellulitis. No loculated fluid collections to suggest an abscess. Multiple sup erficial varicosities are noted. No knee effusion. Old, healed left ankle fracture. There is a screw tract within the distal tibia consistent with old postoperative change. IMPRESSION: 1. Subcutaneous edema and skin thickening within the mid to distal left lower leg, left ankle, and do rsum of the left foot consistent with a cellulitis. No loculated fluid collections to suggest an absc ess. 2. No underlying bony destruction to suggest an osteomyelitis. 3. No acute fracture or dislocation within the left lower leg. ACT 112: Negative or not required by law. Electronically signed by: Doron Richey M.D. 05/19/2023 2:42 PM
--- NOTE | 2023-05-19 15:20 | History & Physical Report ---
Date of Service May 19, 2023 Assessment & Plan (1) Cellulitis of left lower leg: Plan Assessment: 1. Cellulitis of the left lower extremity with failed outpatient antibiotic therapy in the form of Keflex and doxycycline. IV Rocephin IV vancomycin. We will have nursing staff outlined with marking pen. 2. Sarcoidosis. 3. History of depression. 4. History of hyperparathyroidism with vitamin D deficiency. 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 7. GERD 8. History of pulmonary embolism. 9. History of essential hypertension. 10. History of osteoporosis. Plan: As discussed above. Please refer to orders for further planning. We do anticipate the patient being here at least 2 midnights for IV antibiotic therapy since he has failed multiple days of outpatient oral antibiotic therapy. History of Present Illness Chief Complaint: Left lower extremity cellulitis Primary Care Provider: Bao Israel III, VISHAL This is a pleasant 72-year-old female who had extensive ankle surgery on the left years ago back in the early . She had hardware implanted and subsequently explanted due to infection. This was 2006 timeframe. She has had intermittent cellulitis of this ankle in the past but never this bad. She presented to the ER on the of this month she had an ultrasound of the left lower extremity which was negative for DVT and an x-ray just showed soft tissue edema. At that time she was placed on outpatient doxycycline and Keflex and discharged to home. Since then her cellulitis has become worse and she has been compliant with her oral antibiotic therapy. Today she represents from her primary care office for consideration for admission. In the emergency department the patient had a CT of the lower extremity with contrast that showed subcutaneous edema with skin thickening within the mid to distal left lower leg left ankle and dorsum of the left foot consistent with cellulitis. There is no yousif fluid collection to suggest abscess. There is no osseous changes consistent with osteomyelitis. There was no fracture or dislocation. In the emergency department the patient received IV vancomycin and IV Rocephin. We are called admit the patient for further evaluation and treatment due to failed outpatient antibiotic treatment Allergies Allergy/AdvReac Type Severity Reaction Status Date / Time erythromycin base Allergy Mild RASH Verified 05/19/23 15:13 tiotropium Allergy Mild RASH Verified 05/19/23 15:13 amoxicillin AdvReac Mild GI UPSET Verified 05/19/23 15:13 Cipro AdvReac Mild vomiting Verified 04/15/16 22:58 ciprofloxacin AdvReac Mild vomiting Verified 05/19/23 15:13 clavulanic acid AdvReac Mild Gastrointestinal Verified 05/19/23 15:13 Upset Quinolones AdvReac Mild CIPRO-VOMIT Verified 05/19/23 15:13 ING Home Medications Medication Instructions Recorded Confirmed Type Lactobacil.acidophilus-Bifido.animalis 1 cap PO QAM 02/25/18 05/19/23 History 5 billion cell sprinkle capsule (Probiotic) aspirin 81 mg tablet,delayed 81 mg PO HS 02/25/18 05/19/23 History release (Prashanth Low Dose Aspirin) multivitamin (Daily Multi-Vitamin 1 tab PO QAM 02/25/18 05/19/23 History tablet) soy isoflavone-black cohosh 155 mg PO QAM 02/25/18 05/19/23 History root-magnolia bark 155 mg capsule (Estroven) cyanocobalamin (vitamin B-12) 1,000 mcg PO QAM 08/02/20 05/19/23 History 1,000 mcg tablet (Vitamin B-12) elderberry fruit 200 mg capsule 200 mg PO DAILY 04/24/21 05/19/23 History zinc acetate 50 mg (zinc) capsule 50 mg PO DAILY 04/24/21 05/19/23 History (Galzin) doxepin 25 mg capsule 25 mg PO DAILY #30 caps 05/28/22 05/19/23 Rx fluticasone furoate 200 1 inh inhalation DAILY 09/30/22 05/19/23 History mcg-vilanterol 25 mcg/dose inhalation powder (Breo Ellipta) pantoprazole 40 mg tablet,delayed 40 mg PO DAILYBB #90 tabs 10/28/22 05/19/23 Rx release (Protonix) levocetirizine 5 mg tablet (Xyzal) 5 mg PO HS #90 tabs 01/20/23 05/19/23 Rx atorvastatin 40 mg tablet 40 mg PO QPM #90 tabs 03/01/23 05/19/23 Rx theophylline 400 mg 400 mg PO DAILY #90 tabs 04/04/23 05/19/23 Rx tablet,extended release 24 hr albuterol sulfate 90 mcg/actuation 2 puff inhalation QID PRN 04/25/23 05/19/23 Rx aerosol inhaler (ProAir HFA) Shortness Of Breath #8.5 grams fluticasone propionate 93 1 spray intranasal BID #16 mL 04/27/23 05/19/23 Rx mcg/actuation breath activated aerosol (Xhance) calcitriol 0.25 mcg capsule 0.25 mcg PO DAILY #90 caps 04/28/23 05/19/23 Rx ascorbic acid (vitamin C) 100 mg 0 mg PO DAILY 05/16/23 05/19/23 History tablet carvedilol 6.25 mg tablet 6.25 mg PO BID 05/16/23 05/19/23 History cephalexin 500 mg capsule 500 mg PO QID 7 days #28 caps 05/16/23 05/19/23 Rx cholecalciferol (vitamin D3) 25 0 mcg PO DAILY 05/16/23 05/19/23 History mcg (1,000 unit) tablet doxycycline hyclate 100 mg capsule 100 mg PO BID 7 days #14 caps 05/16/23 05/19/23 Rx famotidine 40 mg tablet 40 mg PO BID 05/16/23 05/19/23 History montelukast 10 mg tablet 10 mg PO DAILY 05/16/23 05/19/23 History omalizumab 150 mg/mL subcutaneous 300 mg subcut .Q2W 05/16/23 05/19/23 History syringe (Xolair) potassium chloride 20 mEq 20 meq PO QAM 05/16/23 05/19/23 History tablet,extended release(part/cryst) revefenacin 175 mcg/3 mL solution 175 mcg inhalation DAILY PRN 05/16/23 05/19/23 History for nebulization (Yupecammyi) Shortness Of Breath Or Wheezing escitalopram oxalate 5 mg tablet 5 mg PO QAM #90 tabs 05/18/23 05/19/23 Rx (Lexapro) furosemide 20 mg tablet (Lasix) 20 mg PO QAM #90 tabs 05/18/23 05/19/23 Rx Past Med/Surg History Medical History Pruritic rash Abnormal CT scan, chest Sarcoidosis Chronic dyspnea Moderate persistent asthma Left ankle injury Rectal bleed Epistaxis Depression Fever Hypoxia Pneumonia due to 2019 novel coronavirus Hyperparathyroidism Vitamin D deficiency Degeneration of cervical intervertebral disc Eosinophilic gastroenteritis and colitis GERD without esophagitis History of pulmonary embolism Hypertension Osteoporosis Intertrochanteric fracture of left hip (04/14/14) Surgical History H/O sinus surgery Hx of tonsillectomy History of appendectomy (06/06/12) Hx of appendectomy History of hip surgery History of ankle surgery Family History Grandmother (Paternal) Arthritis Myocardial infarction Aunt Rheumatoid arthritis Breast cancer Family/Other Diabetes Myocardial infarction Father Coronary heart disease Myocardial infarction Mother Myocardial infarction Denies family history of Ovarian cancer Prostate cancer Lung cancer Colorectal cancer Social History Smoking Status: Never smoker Second Hand Exposure: No; Do You Dip or Chew Tobacco: No; Hx Alcohol Use: No Hx Substance Use: No Preferred Language: Wolof Communication Ability: Effective Visual Impairment: No Limitations Hearing Ability: Normal 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: No Beliefs That Will Affect Care: None marital status: Current Living Situation: Spouse Current Living Situation Comment: caregiver to , daughter, and granddaughter live in home current occupational status: retired How many Children do You have: 3 Feels Safe at Home: Yes Childhood Exposure to Second-Hand Smoke: No Diet: regular caffeine: No Dental Care, Regularly: No Physical Activity Frequency: Daily Seatbelt Use: always Sunscreen Use: No (Doesn't go out in the sun ) Assistive Devices: None, Denture - Upper, Denture - Lower and Glasses Review of Systems Review of Systems: A 10 point review of system was obtained and unless otherwise stated here or in history of present illness are negative and noncontributory to chief complaint. Physical Exam Physical Exam: In General: This is a 74-year-old female who is alert and oriented x 3 at time of examination she interacts appropriate and pleasantly she is accompanied by her granddaughter at the time of my exam. Patient is a primary caregiver for her of 56 years who is a bilateral amputee from being a wounded in [place]. HEENT: Normocephalic atraumatic pupils are equal round and reactive to light bilaterally. No scleral icterus no conjunctival injection external auditory canals are patent septum is in the midline nose is without discharge oral mucosa is pink and moist without lesion. NECK: Supple no rigidity no lymphadenopathy no thyromegaly no carotid bruits no JVD no masses. HEART: Regular rate and rhythm I do not appreciate any ectopy or rub. No murmur. LUNGS: Clear to auscultation bilaterally and anteriorly with no evidence of adventitious sounds/wheezes rales or rhonchi. ABDOMEN: Soft nontender, no rebound, no peritoneal signs, positive bowel sounds, no appreciable organomegaly. EXTREMITIES: With the exception of the left lower extremity as described below intact, no peripheral cyanosis, clubbing or edema. Strength is 5 out of 5 in extremities x4, no pathological reflexes. Her left lower extremity from the mid calf distally is mildly erythematous until approximately 2 cm proximal to the ankle and is significantly erythematous warm to the touch wrapping around the lateral medial malleoli region as well as the proximal two thirds of the dorsum of the foot. Pulses are palpable and equal. There is no discharge from the ankle. NEUROLOGICAL: Cranial nerves II through XII are grossly intact with no focal deficit elicited upon examination. No tremor. Results & Data Results & Data Vital Signs (Past 12 Hours) Vital Signs Temp Pulse Pulse Resp BP BP Pulse Ox 05/19/23 14:00 71 18 181/94 H 97 05/19/23 12:42 98 05/19/23 12:35 77 05/19/23 12:28 05/19/23 12:28 69 18 142/81 H 97 05/19/23 11:43 36.3 C L 72 22 154/82 H 97 O2 Del Method 05/19/23 14:00 05/19/23 12:42 Room Air 05/19/23 12:35 05/19/23 12:28 Room Air 05/19/23 12:28 Room Air 05/19/23 11:43 Code Status & VTE Plan Code Status Full code. I did discuss personally with patient at the bedside PG Care Time/CCT Total # of Minutes Spent Total Time Spent with Patient: Total time spent is greater than 50% in coordination of care (as documented) at patient's floor/unit and/or counseling patient: Coding Level of Care Code 96228 INT INP/OBS CARE 3/75MIN Diagnoses Cellulitis of left lower leg L03.116
[2023-05-19 15:21] LABS: Partial Thromboplastin Time 29 Seconds (21-31); Prothrombin Time 10.8 Seconds (9.0-12.0)
--- NOTE | 2023-05-19 15:25 | Electrocardiogram Report ---
Test Reason : Blood Pressure : / mmHG Vent. Rate : 069 BPM Atrial Rate : 069 BPM P-R Int : 156 ms QRS Dur : 092 ms QT Int : 390 ms P-R-T Axes : 058 029 019 degrees QTc Int : 417 ms Normal sinus rhythm Normal ECG When compared with ECG of 02-AUG-2020 20:19, No significant change was found Confirmed by Live Dennis ([id number]) on 05/19/2023 3:24:44 PM Referred By: Bao Israel Confirmed By:Owen Dennis
[2023-05-19] MEDS: ENOXAPARIN INJ 40 MG/0.4 ML SYR SQ SCH (19:29)
[2023-05-19] MEDS: ACETAMINOPHEN 325 MG TAB PO PRN (20:54)
[2023-05-19] MEDS ORDERED: ALBUTEROL HFA 8 GM INHALER INH PRN (21:08)
[2023-05-19] MEDS: carvediloL 6.25 MG TAB PO SCH (22:19)
[2023-05-19] MEDS: MONTELUKAST SODIUM 10 MG TABLET PO ONE (23:08)
[2023-05-19] MEDS: CETIRIZINE HCL 10 MG TABLET PO ONE (23:08)
[2023-05-19] MEDS: DOXEPIN HCL 25 MG CAPSULE PO ONE (23:08)
[2023-05-19] MEDS: HYDROmorphone INJ 0.5 MG/0.5 ML SYR IV STA (23:52)
[2023-05-20 00:12] LABS: Appearance Urine Clear (Clear); Bilirubin Urine Negative (Negative); Blood Urine Negative (Negative); Color Urine Yellow; Glucose Urine UA Negative (Negative); Ketones Urine Negative (Negative); Leukocyte Esterase Urine Negative (Negative); Nitrite Urine Negative (Negative); Protein Urine Negative (Negative); Specific Gravity Urine > 1.045 (1.000-1.030); Urobilinogen Urine Negative (Negative); pH Urine 5.5 (4.5-7.5)
[2023-05-20] MEDS: CALAMINE/PRAMOXINE LOTION 180 APPLN/180 ML BTL EXT PRN (00:52)
[2023-05-20] MEDS: VANCOMYCIN HCL 1,250 MG in SODIUM CHLORIDE 0.9% 250 ML IV SCH (01:44)
[2023-05-20] MEDS: PANTOprazole 40 MG TAB PO SCH (06:23)
[2023-05-20 08:09] LABS: Basophils # (auto) 0.04 K/uL (0.00-0.20); Basophils % (auto) 0.6 %; Eosinophils # (auto) 0.44 K/uL (0.00-0.50); Eosinophils % (auto) 6.6 %; Hematocrit (blood only) 35.2 % (37.0-47.0); Hemoglobin 11.2 g/dl (12.0-16.0); Immature Granulocytes # (auto) 0.04 K/uL (0.01-0.20); Immature Granulocytes % (auto) 0.6 %; Lymphocytes # (auto) 2.16 K/uL (1.20-3.40); Lymphocytes % (auto) 32.5 %; Mean Corpuscular Hemoglobin 29.2 pg (25.0-34.0); Mean Corpuscular Hgb Conc 31.8 g/dL (32.0-36.0); Mean Corpuscular Volume 91.7 fL (80.0-100.0); Mean Platelet Volume 9.6 fL (9.4-12.4); Monocytes # (auto) 0.64 K/uL (0.11-0.59); Monocytes % (auto) 9.6 %; Neutrophils # (auto) 3.32 K/uL (1.40-6.50); Neutrophils % (auto) 50.1 %; Platelet Count 264 K/uL (130-400); RDW Coefficient of Variation 13.4 % (11.5-14.5); RDW Standard Deviation 45.7 fL (36.4-46.3); Red Blood Count 3.84 M/uL (4.20-5.40); White Blood Count 6.64 K/ul (4.8-10.8)
[2023-05-20 08:21] LABS: Albumin Globulin Ratio 1.1 (0.9-2); Albumin Level 3.4 gm/dl (3.4-5.0); Bilirubin,Total 0.4 mg/dl (0.2-1.0); Calcium 8.8 mg/dl (8.6-10.3); Creatinine Clr Calc Pharmacy 56.3 ml/min; Est GFR (African American) 69.8 ml/min; Est GFR (Non-African American) 60.2 ml/min; Potassium 4.1 mmol/L (3.5-5.1); Total Protein 6.4 gm/dl (6.0-8.3)
[2023-05-20] MEDS ORDERED: ZINC ACETATE 50 MG PO SCH (09:00)
[2023-05-20] MEDS ORDERED: NON-FORMULARY MEDICATION (Soy Isofla-Blk Cohosh-Mag Bark [Estroven] 155 mg Capsule) PO SCH (09:00)
[2023-05-20] MEDS: CYANOCOBALAMIN (B-12) 500 MCG TABLET PO SCH (09:02)
[2023-05-20] MEDS: ESCITALOPRAM OXALATE 10 MG TAB PO SCH (09:03)
[2023-05-20] MEDS: FAMOTIDINE 40 MG TABLET PO SCH (09:03)
[2023-05-20] MEDS: CHOLECALCIFEROL 25 MCG (1000 UNITS) TAB PO SCH (09:03)
[2023-05-20] MEDS: CALCITRIOL 0.25 MCG CAPSULE PO SCH (09:03)
[2023-05-20] MEDS: ADVANCED PROBIOTIC 1250 MG CAPSULE PO SCH (09:04)
[2023-05-20] MEDS: ASCORBIC ACID 500 MG TAB PO SCH (09:04)
[2023-05-20] MEDS: THEOPHYLLINE 400 MG EXTENDED REL TAB PO SCH (09:04)
[2023-05-20] MEDS: POTASSIUM CHLORIDE CRTAB 20 MEQ TABCR PO SCH (09:04)
[2023-05-20] MEDS: MULTIVITAMIN TAB PO SCH (09:04)
[2023-05-20] MEDS: FUROSEMIDE 20 MG TAB PO SCH (09:04)
[2023-05-20] MEDS: FLUTICASONE PROPIONATE NA SPR 16 GM BTL SCH (09:05)
[2023-05-20] MEDS: FLUTICASONE/VILANTEROL 200/25MCG 14 PUFFS/INHALER INH SCH (09:05)
--- NOTE | 2023-05-20 09:09 | Pharmacy Report ---
Pharmacy PK ABX Note - Date of Service May 20, 2023 - Assessment and Plan Assessment 72 year old F receiving vancomycin and rocephin for cellulitis of ankle area. PMHx significant for ankle surgery in early , s/p hardware removal subsequently due to infection in 2005. Per notes, reports of intermittent cellulitis of ankle. Presenting to ER earlier this month for concerns for cellulitis and discharged on doxy/keflex. Area becoming worse on oral antibiotics therefore returning back to hospital. Lower leg CT suggestive of cellulitis infection, no abscess, no osteo per report. Blood cultures pending. Plan Vancomycin * Loading dose: 1750 mg iv x 1 (given in ER yesterday) * Maintenance dose: started on vancomycin 1250 mg iv q 24 hours * Regimen is predicted to achieve target AUC/RENY of 400-600 mg/L.hr * Plan to collect a random level tomorrow to ensure dosing appropriate. Pharmacy will continue to follow and will adjust dose/frequency as necessary. Thank you. Pharmacy has transitioned to AUC monitoring for vancomycin. AUC/RENY is the preferred PK/PD target and is associated with decreased risk of nephrotoxicity compared to traditional trough targets.
--- NOTE | 2023-05-20 10:43 | Hospitalist Progress Note ---
Date of Service May 20, 2023 Assessment & Plan (1) Cellulitis of left lower leg: Plan: Improving on vancomycin and ceftriaxone Given she failed doxycycline and Keflex and now improving on intravenous antibiotics will continue on IV antibiotics until significant improvement has been reached. Do not suspect ankle involvement at this time. Since she is already failed doxycycline we will consult infectious disease to consider linezolid if necessary. (2) GERD without esophagitis: Plan: Continue pantoprazole (3) Hypertension: Plan: Continue carvedilol (4) Moderate persistent asthma: Plan: Continue Breo Ellipta and theophylline On Xolair as an outpatient (5) Depression: Plan: Continue Lexapro and doxepin (6) History of pulmonary embolism: Plan VTE prophylaxis - Lovenox 40 mg subcu Diet - heart healthy Disposition - continue admission on med/surg Admission and Anticipated Discharge Date Admission Date: May 19, 2023 Subjective Afebrile. Still having significant medial ankle pain although no pain on plantarflexion of her ankle. Unable to fully dorsiflex her ankle due to swelling. Posterior tibial and dorsalis pedis pulses normal. She reports mild improvement from erythema on admission. Review of Systems 2 Review of Systems: All systems reviewed & are unremarkable except as noted in HPI & below Physical Exam 2 Constitutional: WD/WN, vitals as above Respiratory: normal respiratory effort Cardiovascular: Vessels: posterior tibial pulses present and dorsalis pedis pulses present Skin: Results & Data Results & Data Vital Signs (Past 12 Hours) Vital Signs Temp Pulse Resp BP Pulse Ox O2 Del Method 05/20/23 07:06 36.8 C 69 14 128/75 95 Room Air PG Care Time/CCT Total # of Minutes Spent Total Time Spent with Patient: Total time spent is greater than 50% in coordination of care (as documented) at patient's floor/unit and/or counseling patient: Coding Level of Care Code 98952 SUB INP/OBS CARE MIN Diagnoses Cellulitis of left lower leg L03.116 GERD without esophagitis K21.9 Essential hypertension I10 Hypertension type: essential hypertension Moderate persistent asthma without complication J45.40 Asthma complication type: uncomplicated Major depressive disorder, remission status unspecified, unspecified whether recurrent F32.9 Depression Type: major depressive disorder Major depression recurrence: unspecified whether recurrent Active/Remission status: remission status unspecified History of pulmonary embolism Z86.711 (3) Hypertension Hypertension type: essential hypertension Qualified Code(s): I10 - Essential (primary) hypertension (4) Moderate persistent asthma Asthma complication type: uncomplicated Qualified Code(s): J45.40 - Moderate persistent asthma, uncomplicated (5) Depression Depression Type: major depressive disorder Major depression recurrence: u nspecified whether recurrent Active/Remission status: remission status unspecified Qualified Code(s): F32.9 - Major depressive disorder, single episode, unspecified
[2023-05-20] MEDS ORDERED: cefTRIAXone SODIUM 1,000 MG in DEXTROSE 5 % MINI-B 50 ML IV SCH (15:30)
--- NOTE | 2023-05-20 16:20 | Infectious Disease Consult ---
Date of Consultation May 20, 2023 Assessment & Plan (1) Cellulitis of left lower leg: (2) Sarcoidosis: Plan 72yo F with h/o extensive left ankle surgery in early , had hardware implanted and subsequently explanted due to infection, intermittent cellulitis of L ankle in the past, sarcoidosis, asthma, hyperparathyroidism, HTN who presented on 05/19 with worsening LLE pain and swelling despite outpatient doxycycline and keflex. Here she has been afebrile, vss. WBC wnl, Cr and LFT wnl, PCT 0.03. UA negative. BCx ngtd. CXR negative. LLE CT with IV showed subcutaneous edema and skin thickening within the mid to distal LLE, left ankle and dorsum of left foot c/w cellulitis, no collections, no bone destruction. She has been getting vanc and CTX. Unfortunately, no telepresenter at this time. CT of the LLE is reassuring. The pictures of her legs that were uploaded in the chart (in ED note) do not seem to have extensive redness over her leg. Her vitals and blood work is also reassuring. Blank ordered a MRSA nasal swab to check for colonization. If MRSA swab is negative, then we can stop vancomycin and continue treatment with CTX. If she is improving on IV antibiotics, then we can change to PO cefdinir to complete a 7 day course. If there is worsening, then we may need to consider broader coverage to include Pseudomonas (ie with cefepime). # LLE cellulitis # h/o prior left ankle surgery - Blank ordered MRSA screen if negative, then stop vancomycin - continue on CTX - if she is clinically improving, then antibiotics can be changed to cefdinir 300mg PO twice daily (if MRSA screen is positive then also include doxycycline 100mg PO twice daily in outpatient regimen) duration 7 days starting 05/19 - if she clinically gets worse, then can consider broader coverage with cefepime ID will continue to follow. If questions or concerns, contact Infectious Disease Call Center . Nati Diaz MD [facility], Division of Infectious Diseases [facility]: [phone] Consultation Information This patient recommendation is based on a telemedicine consult request which was completed asynchronously through chart review and information provided by the primary physician. The patient was not seen or examined today. The evaluation is consultative in nature and all patient care and treatment decisions can either be accepted or rejected by the patient's primary hospital-based treating physician using their own independent medical judgment for their patient. Machine Design Checker contact information: Please call [facility] Call Center [phone]. (Phone Number For Physician Use Only) Time Spent Reviewing Chart: 31+ minutes History of Present Illness Reason for Consultation: cellulitis, failed doxy/Keflex, improving vanc/cef Attending Physician: Jason Maldonado MD History of Present Illness 72yo F with h/o extensive left ankle surgery in early , had hardware implanted and subsequently explanted due to infection, intermittent cellulitis of L ankle in the past, sarcoidosis, asthma, hyperparathyroidism, HTN who presented on 05/19 with worsening LLE pain and swelling. She was recently seen in ED on May 16 for LLE cellulitis when she developed pain/swelling 1 week prior with subsequent fever and chills. She was given CTX and discharged with doxyc/Keflex. She developed worsening swelling in the LLE and continued to have fevers and chills despite taking abx and was seen by her PCP on 05/19, who sent her for admission. ED note states that she had reported improving redness in her leg but the pain did not get better. Here she has been afebrile, vss. WBC wnl, Cr and LFT wnl, PCT 0.03. UA negative. BCx ngtd. CXR negative. LLE CT with IV showed subcutaneous edema and skin thickening within the mid to distal LLE, left ankle and dorsum of left foot c/w cellulitis, no collections, no bone destruction. She has been getting vanc and CTX. Allergies Allergy/AdvReac Type Severity Reaction Status Date / Time erythromycin base Allergy Mild RASH Verified 05/19/23 15:13 tiotropium Allergy Mild RASH Verified 05/19/23 15:13 amoxicillin AdvReac Mild GI UPSET Verified 05/19/23 15:13 Cipro AdvReac Mild vomiting Verified 04/15/16 22:58 ciprofloxacin AdvReac Mild vomiting Verified 05/19/23 15:13 clavulanic acid AdvReac Mild Gastrointestinal Verified 05/19/23 15:13 Upset Quinolones AdvReac Mild CIPRO-VOMIT Verified 05/19/23 15:13 ING Home Medications Medication Instructions Recorded Confirmed Type Lactobacil.acidophilus-Bifido.animalis 1 cap PO QAM 02/25/18 05/19/23 History 5 billion cell sprinkle capsule (Probiotic) aspirin 81 mg tablet,delayed 81 mg PO HS 02/25/18 05/19/23 History release (Prashanth Low Dose Aspirin) multivitamin (Daily Multi-Vitamin 1 tab PO QAM 02/25/18 05/19/23 History tablet) soy isoflavone-black cohosh 155 mg PO QAM 02/25/18 05/19/23 History root-magnolia bark 155 mg capsule (Estroven) cyanocobalamin (vitamin B-12) 1,000 mcg PO QAM 08/02/20 05/19/23 History 1,000 mcg tablet (Vitamin B-12) elderberry fruit 200 mg capsule 200 mg PO QAM 04/24/21 05/19/23 History zinc acetate 50 mg (zinc) capsule 50 mg PO QAM 04/24/21 05/19/23 History (Galzin) fluticasone furoate 200 1 inh inhalation QAM 09/30/22 05/19/23 History mcg-vilanterol 25 mcg/dose inhalation powder (Breo Ellipta) pantoprazole 40 mg tablet,delayed 40 mg PO DAILYBB #90 tabs 10/28/22 05/19/23 Rx release (Protonix) levocetirizine 5 mg tablet (Xyzal) 5 mg PO HS #90 tabs 01/20/23 05/19/23 Rx atorvastatin 40 mg tablet 40 mg PO QPM #90 tabs 03/01/23 05/19/23 Rx albuterol sulfate 90 mcg/actuation 2 puff inhalation QID PRN 04/25/23 05/19/23 Rx aerosol inhaler (ProAir HFA) Shortness Of Breath #8.5 grams fluticasone propionate 93 1 spray intranasal BID #16 mL 04/27/23 05/19/23 Rx mcg/actuation breath activated aerosol (Xhance) ascorbic acid (vitamin C) 100 mg 100 mg PO QAM 05/16/23 05/19/23 History tablet carvedilol 6.25 mg tablet 6.25 mg PO BID 05/16/23 05/19/23 History cephalexin 500 mg capsule 500 mg PO QID 7 days #28 caps 05/16/23 05/19/23 Rx cholecalciferol (vitamin D3) 25 1,000 mcg PO QAM 05/16/23 05/19/23 History mcg (1,000 unit) tablet doxycycline hyclate 100 mg capsule 100 mg PO BID 7 days #14 caps 05/16/23 05/19/23 Rx famotidine 40 mg tablet 40 mg PO BID 05/16/23 05/19/23 History montelukast 10 mg tablet 10 mg PO QPM 05/16/23 05/19/23 History omalizumab 150 mg/mL subcutaneous 300 mg subcut .Q2W 05/16/23 05/19/23 History syringe (Xolair) potassium chloride 20 mEq 20 meq PO QAM 05/16/23 05/19/23 History tablet,extended release(part/cryst) revefenacin 175 mcg/3 mL solution 175 mcg inhalation DAILY PRN 05/16/23 05/19/23 History for nebulization (Yupelri) Shortness Of Breath Or Wheezing escitalopram oxalate 5 mg tablet 5 mg PO QAM #90 tabs 05/18/23 05/19/23 Rx (Lexapro) furosemide 20 mg tablet (Lasix) 20 mg PO QAM #90 tabs 05/18/23 05/19/23 Rx calcitriol 0.25 mcg capsule 0.25 mcg PO QAM 05/19/23 05/19/23 History doxepin 25 mg capsule 25 mg PO QPM 05/19/23 05/19/23 History theophylline 400 mg 400 mg PO QAM 05/19/23 05/19/23 History tablet,extended release 24 hr Patient History Medical History Pruritic rash Abnormal CT scan, chest Sarcoidosis Chronic dyspnea Moderate persistent asthma Left ankle injury Rectal bleed Epistaxis Depression Fever Hypoxia Pneumonia due to 2019 novel coronavirus Hyperparathyroidism Vitamin D deficiency Degeneration of cervical intervertebral disc Eosinophilic gastroenteritis and colitis GERD without esophagitis History of pulmonary embolism Hypertension Osteoporosis Intertrochanteric fracture of left hip (04/14/14) Surgical History H/O sinus surgery Hx of tonsillectomy History of appendectomy (06/06/12) Hx of appendectomy History of hip surgery History of ankle surgery Family History Grandmother (Paternal) Arthritis Myocardial infarction Aunt Rheumatoid arthritis Breast cancer Family/Other Diabetes Myocardial infarction Father Coronary heart disease Myocardial infarction Mother Myocardial infarction Denies family history of Ovarian cancer Prostate cancer Lung cancer Colorectal cancer Social History Smoking Status: Never smoker Second Hand Exposure: No; Do You Dip or Chew Tobacco: No; Hx Alcohol Use: No Hx Substance Use: No Preferred Language: Tongan Communication Ability: Effective Visual Impairment: No Limitations Hearing Ability: Normal Java Security 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 Required: No Beliefs That Will Affect Care: None marital status: Current Living Situation: Family Current Living Situation Comment: lives with and daugher, patient is 's primary caregiver current occupational status: retired How many Children do You have: 3 Other Information That Helps Us Care for You: No Feels Safe at Home: Yes Safety Concerns: Feels Safe At This Time Childhood Exposure to Second-Hand Smoke: No Diet: regular caffeine: No Dental Care, Regularly: No Physical Activity Frequency: Daily Seatbelt Use: always Sunscreen Use: No (Doesn't go out in the sun ) Assistive Devices: Cane and Walker Physical Exam Physical Exam: Image of legs reviewed in chart Results & Data Vital Signs (Past 12 Hours) Vital Signs Temp Pulse Resp BP Pulse Ox O2 Del Method 05/20/23 14:38 36.5 C 68 16 138/73 93 Room Air 05/20/23 07:06 36.8 C 69 14 128/75 95 Room Air Laboratory Results Labs reviewed Diagnostic Findings Imaging reviewed
[2023-05-20] MEDS: cefTRIAXone SODIUM 2,000 MG in DEXTROSE 5 % MINI-B 50 ML IV SCH (17:24)
[2023-05-20] MEDS: KETOROLAC TROMETHAMINE 15 MG/ML VIAL IV PRN (18:40)
[2023-05-20] MEDS: MONTELUKAST SODIUM 10 MG TABLET PO SCH (21:10)
[2023-05-20] MEDS: ATORVASTATIN 40 MG TAB PO SCH (21:11)
[2023-05-20] MEDS: DOXEPIN HCL 25 MG CAPSULE PO SCH (21:11)
[2023-05-20] MEDS: CETIRIZINE HCL 10 MG TABLET PO SCH (21:11)
[2023-05-20] MEDS: ASPIRIN 81 MG ECTAB PO SCH (21:12)
[2023-05-21 06:25] LABS: Creatinine Clr Calc Pharmacy 52.9 ml/min; Est GFR (African American) 64.7 ml/min; Est GFR (Non-African American) 55.8 ml/min
--- NOTE | 2023-05-21 12:25 | Discharge Summary ---
Date of Service May 21, 2023 Admission HPI Per Admitting Provider This is a pleasant 72-year-old female who had extensive ankle surgery on the left years ago back in the early . She had hardware implanted and subsequently explanted due to infection. This was 2005 timeframe. She has had intermittent cellulitis of this ankle in the past but never this bad. She presented to the ER on the of this month she had an ultrasound of the left lower extremity which was negative for DVT and an x-ray just showed soft tissue edema. At that time she was placed on outpatient doxycycline and Keflex and discharged to home. Since then her cellulitis has become worse and she has been compliant with her oral antibiotic therapy. Today she represents from her primary care office for consideration for admission. In the emergency department the patient had a CT of the lower ex tremity with contrast that showed subcutaneous edema with skin thickening within the mid to distal left lower leg left ankle and dorsum of the left foot consistent with cellulitis. There is no yousif fluid collection to suggest abscess. There is no osseous changes consistent with osteomyelitis. There was no fracture or dislocation. In the emergency department the patient received IV vancomycin and IV Rocephin. We are called admit the patient for further evaluation and treatment due to failed outpatient antibiotic treatment Principal Diagnosis Left lower extremity cellulitis Discharge Exam The patient is awake, alert and oriented 3, well developed and well nourished, normocephalic and atraumatic, lying in bed and in no acute distress. HEENT--PERRL, EOMI, mucous membranes and oropharynx mildly dry Neck--supple. No JVD. No bruits. Thyroid normal, trachea midline, no adenopathy. Heart--normal S1 and S2. No murmurs, rubs or gallops. Lungs--clear bilaterally, no respiratory distress, no accessory muscle use. Abdomen--normal bowel sounds and soft. Extremities--no cyanosis or clubbing. No edema. Dermatologic--normal skin turgor, normal color, no abnormal lymph nodes, no rash. Neurologic--cranial nerves II through XII grossly intact. Rheumatologic--normal range of motion. Psychiatric--normal affect. Discharge Data Allergies Allergy/AdvReac Type Severity Reaction Status Date / Time erythromycin base Allergy Mild RASH Verified 05/19/23 15:13 tiotropium Allergy Mild RASH Verified 05/19/23 15:13 amoxicillin AdvReac Mild GI UPSET Verified 05/19/23 15:13 Cipro AdvReac Mild vomiting Verified 04/15/16 22:58 ciprofloxacin AdvReac Mild vomiting Verified 05/19/23 15:13 clavulanic acid AdvReac Mild Gastrointestinal Verified 05/19/23 15:13 Upset Quinolones AdvReac Mild CIPRO-VOMIT Verified 05/19/23 15:13 ING Consultations 05/19/23 14:58 ED Decision to Admit Stat 05/20/23 13:57 Consult Infectious Diseases Routine Ordered Studies 05/19/23 12:41 CT leg [CT tib/fib LT w con] Stat Hospital Course (1) Cellulitis of left lower leg: She failed outpatient management Improved with IV antibiotics Seen by infectious disease Will discharge her on p.o. cefdinir 300 mg twice daily for 7 days (2) GERD without esophagitis: Continue pantoprazole (3) Hypertension: Continue carvedilol (4) Moderate persistent asthma: Continue Breo Ellipta and theophylline On Xolair as an outpatient (5) Depression: Continue Lexapro and doxepin (6) History of pulmonary embolism: Plan VTE prophylaxis - Lovenox 40 mg subcu Diet - heart healthy Disposition -discharge home Total Time Total Time Spent Total Time Spent (In Minutes): 35 Discharge Plan Discharge Items Patient Disposition: Home - Self-Care Reason For Visit: CELLULITIS L LEG Discharge Diagnosis: left leg cellulitis Condition on Discharge: Good Activity: Resume your previous activity Non-emergency contact: Primary Care Provider Call non-emergency contact if: you have any medication questions Follow-up/Referrals: Bao Israel III, CRNP [Primary Care Provider] - 05/23/23 4:00 pm Diet: Regular Addtl Attending Provider Instructions: Please make appointment to follow-up with your regular PCP Pending Studies at Discharge: No Stand-Alone Forms: My [employer], Smoking Cessation Medications and DC Order Prescriptions: New cefdinir 300 mg capsule 300 mg PO BID 7 Days Qty: 14 0RF Continued pantoprazole [Protonix] 40 mg tablet,delayed release (DR/EC) 40 mg PO DAILYBB Qty: 90 3RF levocetirizine [Xyzal] 5 mg tablet 5 mg PO HS Qty: 90 3RF atorvastatin 40 mg tablet 40 mg PO QPM Qty: 90 3RF furosemide [Lasix] 20 mg tablet 20 mg PO QAM Qty: 90 3RF escitalopram oxalate [Lexapro] 5 mg tablet 5 mg PO QAM Qty: 90 3RF Galzin 50 mg (zinc) capsule 50 mg PO QAM elderberry fruit 200 mg capsule 200 mg PO QAM fluticasone furoate-vilanterol [Breo Ellipta] 200-25 mcg/dose blister with device 1 inh inhalation QAM Xhance 93 mcg/actuation aerosol breath activated 1 spray intranasal BID Qty: 16 2RF Rx Instructions: into each nostril albuterol sulfate [ProAir HFA] 90 mcg/actuation HFA aerosol inhaler 2 puff Inhalation QID PRN (Reason: Shortness Of Breath) Qty: 8.5 5RF multivitamin [Daily Multi-Vitamin] Tablet 1 tab PO QAM aspirin [Prashanth Low Dose Aspirin] 81 mg Tablet,Delayed Release (Dr/Ec) 81 mg PO HS Probiotic 5 billion cell Capsule, Sprinkle 1 cap PO QAM Estroven 155 mg Capsule 155 mg PO QAM cyanocobalamin (vitamin B-12) [Vitamin B-12] 1,000 mcg Tablet 1,000 mcg PO QAM theophylline 400 mg tablet extended release 24 hr 400 mg PO QAM doxepin 25 mg capsule 25 mg PO QPM calcitriol 0.25 mcg capsule 0.25 mcg PO QAM ascorbic acid (vitamin C) 100 mg Tablet 100 mg PO QAM carvedilol 6.25 mg tablet 6.25 mg PO BID famotidine 40 mg tablet 40 mg PO BID montelukast 10 mg tablet 10 mg PO QPM Xolair 150 mg/mL syringe 300 mg subcut .Q2W Rx Instructions: EVERY TWO WEEKS ON WEDNESDAYS potassium chloride 20 mEq tablet,ER particles/crystals 20 meq PO QAM Yupelri 175 mcg/3 mL solution for nebulization 175 mcg inhalation DAILY PRN (Reason: Shortness Of Breath Or Wheezing) cholecalciferol (vitamin D3) 25 mcg (1,000 unit) Tablet 1,000 mcg PO QAM Discontinued cephalexin 500 mg capsule 500 mg PO QID 7 Days Qty: 28 0RF Rx Instructions: Start Date 05/26/23 - End Date 05/23/23. As of 05/19/23 pt has taken 10 doses doxycycline hyclate 100 mg capsule 100 mg PO BID 7 Days Qty: 14 0RF Rx Instructions: Start Date 05/26/23 - End Date 05/23/23. As of 05/19/23 pt has taken 6 doses Discharge Orders: Discharge Order (Routine); Ordered 05/21/23 Ordered By: Roxanna Solis/Other Patient Handouts: Cellulitis Dc Admission Data Admit Date/Time: 05/19/23 15:25 Attending Provider: Roxanna Bird Admit Provider: Don Lepe Primary Care Provider: Bao Israel III Other Providers: Don Lepe; Neena Huerta; Fernanda Garza; Enriqueta Gaspar; Aparna Hill; Nati Diaz; David Garduno; Radha Darby; Susy Delatorre Other Interventions: Discharge Summary Assessment (RN) Last Done: 05/21/23 10:31 Coding Level of Care Code 23460 INP/OBS DISCH >30 MIN Diagnoses Cellulitis of left lower leg L03.116 GERD without esophagitis K21.9 Essential hypertension I10 Hypertension type: essential hypertension Moderate persistent asthma without complication J45.40 Asthma complication type: uncomplicated Major depressive disorder, remission status unspecified, unspecified whether recurrent F32.9 Depression Type: major depressive disorder Major depression recurrence: unspecified whether recurrent Active/Remission status: remission status unspecified History of pulmonary embolism Z86.711 Time Spent (min) 35
== END 2023-05-21 11:05 | disposition home or self-care (01) | DRG 603 ==
LOC: ED 11:26 → 3N 15:25 → SUATTDRO 15:25 → 3N 16:50

== ENCOUNTER 2025-03-07 06:49 | Inpatient (IN) ==
--- NOTE | 2025-03-07 07:57 | History & Physical Bridge Note ---
Date of Service March 07, 2025 History & Physical Bridge Note I have examined the patient, reviewed the History & Physical and in the interval since the performance of the History & Physical I have noted the following changes of clinical significance: no changes noted Accelerating angina Plan coronary angiography plus or minus PCI as indicated A radial artery approach Risk benefits and alternatives of procedure were discussed in detail with the patient. Risks include but are not limited to; , stroke, [place], renal failure, adverse drug reaction, infection, bleed, and need for emergent surgery. Lack of onsite cardiac surgical backup and plan for air evacuation in the event of emergency was also discussed. Patient's questions were answered in full. She voiced understanding wish to proceed with cardiac catheterization plus or minus PCI. Consent is signed and in chart.
--- NOTE | 2025-03-07 07:58 | Pre Anesthesia Assessment ---
Date of Service March 07, 2025 Pre Sedation Assessment Vital Signs Temp Pulse Resp BP Pulse Ox O2 Del Method 03/07/25 06:59 36.8 C 66 16 131/73 90 Room Air Cardiovascular RRR, no murmur, no edema Respiratory normal respiratory effort, lungs clear to auscultation Pre-Sedation Airway Assessment Smoking Status: Never smoker Hx Sleep Apnea: No Short, Thick Neck: No Thyromental Distance: > or= 3.5 Finger Breadths Oral Cavity: + Dentures Mallampati Class: II ASA: ASA3 NPO Status Date of Last Intake of Fluids: 03/07/25 Time of Last Intake of Fluids: 05:30 Last Oral Intake of Fluids Comment: sip water Date of Last Intake of Solid Food: 03/06/25 Notes The planned sedation has been discussed with the patient. Informed Consent was obtained. I have identified the patient, determined the appropriateness of sedation and have assessed the patient immediately prior to the procedure. All medicine(s) and interventions are by my order.
[2025-03-07] MEDS: HEPARIN (PORCINE) 1000 UNIT/ML 10 ML (CATH LAB USE ONLY) ONE (08:41)
[2025-03-07] MEDS: OPTIRAY 350 ONE (08:41)
[2025-03-07] MEDS: MIDAZOLAM HCL 1 MG/ML 2ML VIAL ONE (08:41)
[2025-03-07] MEDS: NITROGLYCERIN/D5W 100MCG/ML 20ML SYR ONE (08:42)
[2025-03-07] MEDS: niCARdipine 2,000 MCG/20 ML SYR ONE (08:42)
[2025-03-07] MEDS: TICAGRELOR 90 MG TAB ONE (08:42)
--- NOTE | 2025-03-07 08:42 | Post Anesthesia Assessment ---
Date of Service March 07, 2025 Post Sedation Assessment Vital Signs Temp Pulse Resp BP Pulse Ox O2 Del Method 03/07/25 06:59 36.8 C 66 16 131/73 90 Room Air Recovery Score Activity: Moves 4 extremities Respiration: Deep Breath/Cough Circulation: +/-20% PreAnes Value Consciousness: Fully Awake Oxygen Saturation: > 92% On Room Air Discharge Sedation Level of Care: Fast Track Phase II Post Sedation Plan On clinical assessment, the patient appears to have tolerated the sedation without complications. Patient is recovering as anticipated. Patient will continue to be monitored by nursing and may be discharged when sedation discharge criteria are met per below protocol. Upon Completions of procedure up to 15 minutes continue every 5 minute vital signs and the P.A.R. score; then discharge to a Phase I or Fast Track to Phase II per the following guidelines: * Discharge Patient to appropriate Phase II area if PAR is 8 or greater or return to pre- procedure baseline. The post - procedure orders will be as directed. * If PAR score is less than 8 or not return to pre-procedure baseline then patient will follow Phase I monitoring till PAR is reached for Phase II. The Phase I may be done in procedure room or may call to secure a Phase I area. * If naloxone or flumazenil are used for reversal, hold in Phase I for continued monitoring from when last reversal dose was given for a minimum of 60 minutes or longer pending the nurse and/or physician discretion of patient condition before discharge to Phase II. Please call the Sedation Physician to re-evaluate and complete post-note for discharge to Phase II area. Do NOT discharge from procedure sedation or Phase 1 until post- sedation evaluation note is complete by procedure /sedation MD Sedation Discharge Instructions to be given to the patient at discharge to home. [facility] Procedure Codes (Charges) Indication for Procedure Indication for procedure: angina
[2025-03-07] MEDS: ASPIRIN 81 MG ECTAB PO STA (09:04)
[2025-03-07] MEDS: ASPIRIN 81 MG CHEW ONE (09:04)
--- NOTE | 2025-03-07 11:51 | Cardiac Catheterization ---
[facility] Data: Engineering Specialist Technician Cardiac Status Clinical evaluation leading to the procedure CAD Presenation: Stable angina Anginal Classification: CCS III Heart Failure: No Cardiogenic Shock within 24 Hours: No Cardiac Arrest within 24 Hours: No Imaging Studies Past 6 Months: Yes Stress Studies Past 6 Months: Yes Stress Echocardiogram: Yes - Indeterminant Coronary Anatomy Dominant: Right Left Main (% Stenosis): Distal (10%) LAD (% Stenosis): Mid (99%) D1 (% Stenosis): Normal Circumflex (% Stenosis): Mid (30%) OM1 (% Stenosis): Normal OM2 (% Stenosis): Normal RCA (% Stenosis): Proximal (20%) R PDA (% Stenosis): Normal R PL1 (% Stenosis): Normal Diagnostic Physicians Name: Toan Ferrer MD, PhD Closure Device Percutaneous Entry Location: Radial Closure Device: Radial Band Recommendations: Medical Therapy and/or Counseling and PCI without planned CABG PCI Indication: Angina despite med therapy Lesion Segment Name: Mid LAD Culprit Artery: Yes Stenosis Prior to Rx (%): 99 Chronic Total Occlusion: No Pre-Procedure JAVON Flow: 2 Previously Treated Lesion: No Lesion Complexity: Non-High/Non-C Lesion Length (mm): 17 Thrombus Present: No Bifurcation Lesion: No Guidewire Across Lesion: Yes Intraprocedure Events Significant Disection: No Cardiac Cath Procedure Full Procedure Date March 07, 2025 Pre-Procedure Diagnosis Pre-Procedure Diagnosis: Angina AUC Score AUC Score: 07 Post-Procedure Diagnosis Post-Procedure Diagnosis: Severe CAD and Successful PCI Procedure(s) Performed Procedure(s) Performed: Coronary Angiography and Drug Eluting Stent Automotive Service Consultant Toan Ferrer MD, PhD Nuclear Plant Technical Advisor(s) Jorge Luis Osorio SINGLE FOLD MACHINE OPERATOR Estimated Blood Loss Estimated Blood Loss: 5 cc Medication(s) Medication(s): Fentanyl, Heparin, Lidocaine 1%, Nicardipine, Nitroglycerin and Versed Summary of Findings Brief description: Patient was brought to the cardiac catheterization suite where she was shaved and prepped in a sterile fashion. Sedated using IV Versed and fentanyl. Soft tissue the right wrist were anesthetized using 2 mL of 1% Xylocaine. The right radial artery was accessed with a modified Seldinger technique and a 6 [place] radial artery glide sheath was placed. Patient was provided anticoagulation with IV heparin and antispasmodics including nicardipine and nitroglycerin. All catheters were advanced and exchanged over a 0.035 J-tip wire. Left coronary angiography in orthogonal views with a 5 [place] Midkiff 4 diagnostic catheter. Right coronary angiography in orthogonal views with 5 [place] Midkiff 4 diagnostic catheter. Diagnostic catheters were removed. Decision was made to proceed with PCI of the LAD. ACT was checked intermittently throughout the case and additional heparin was provided as needed to maintain therapeutic anticoagulation. 6 [place] EBU 3.0 guide catheter was used to engage the left main coronary. A BMW reversal guidewire was advanced down the LAD and positioned distally Mid LAD lesion was predilated with a 2.0 x 12 mm sprinter balloon with 3 inflations up to 8 margarita. Balloon was then removed. A 2.25 x 23 mm dwayne point LINDA was advanced and positioned across the lesion spanning from just distal to the ostium of the diagonal until after the lesion. Stent balloon was removed. Patient was provided IC nitroglycerin. The guidewire was removed and final angiographic evaluation was performed. Guide catheter was then removed over the J-wire. Radial artery sheath was removed and hemostasis obtained using a TR band. Patient was provided loading dose of Brilinta (180 mg p.o. x 1) and aspirin 81 mg daily. Patient remained hemodynamically stable and asymptomatic. She was returned to the recovery area. This ended the case. Coronary angiography findings: [id number]-mhidghl vessel bifurcating into the LAD and circumflex. Mild luminal irregularities. Less than 10% distal stenosis. [id number]-yxbps-hqjfndm and reaches apex. Mid segment with 99% stenosis and JAVON II flow distal to this. Distal LAD is normal. D1 is very large and branching. No angiographically evident disease. LCx-large caliber nondominant. Proximally there is short segment before it provides a high rising OM1. Mid AV groove circumflex has less than 30% stenosis. Distal vessel is small and then terminates. OM1 is small to medium in caliber with luminal irregularities. OM 2 is large and branching without disease. RCA-this is very large and dominant. Proximal less than 20% stenosis. Mid vessel has luminal irregularities and the distal vessel has no disease. RCA bifurcates into the PDA and posterolateral branches. PDA has luminal irregularities. Posterolateral is large and branching without disease. PCI of mid LAD-99% stenosis is reduced to 0% stenosis post PCI JAVON-3 flow post PCI No evidence of dissection or perforation post PCI Summary: 1. Severe mid LAD stenosis. Culprit for crescendo angina. Other vessels without significant disease. 2. Successful PCI with implantation of a drug-eluting stent to the mid LAD. 3. Dual antiplatelet therapy with aspirin and Brilinta to complete 1 to 2 years therapy. 4. Guideline directed medical therapy for secondary prevention of coronary disease to include; low-dose aspirin, high intensity statin therapy, beta- shama, plus or minus CLAUDIA inhibitor/ARB. Hemodynamics Rest Ao:: 123/59 mmHg Final Ao: 118/55 mmHg LV: Not performed Recommendations Recommendations: Medical Therapy and/or Counseling and PCI without planned CABG Radiation Exposure (mGy) 831 mGy, fluoroscopy time 5.3 minutes Contrast (mls) 100 cc Anesthesia 1 mg Versed, 75 mcg fentanyl IV. Start time 0817, end time 0841 Procedural Complication(s) None Disposition Engineering Specialist Technician Holding/Recovery I attest to the content of the Intraoperative Record and any orders documented therein. Any exceptions are noted below. [employer] Card Cath Procedure Codes Cardiac Catheterization Procedure 1: Cardiovascular Cath Procedures: 61061 Coronaries Moderate Sedation Procedure 1: Sedation/Anesthesia: 23007 Mod Sedation by the same physician;Init15 Min Child Age 5 & Up (Initial 15 minutes, start time 0817) Procedure 2: Sedation/Anesthesia: 93728 Mod Sedation by the same physician; Ea [id number] Minutes (Additional 9 minutes, end time 0841) Stenting Procedure 1: Cardiovascular Stent Procedures: 89323 Perc transcatheter placement of intracoronary stent(s), with ang (Mid LAD) PG Care Time/CCT Total # of Minutes Spent Total Time Spent with Patient: Total time spent is greater than 50% in coordination of care (as documented) at patient's floor/unit and/or counseling patient:
[2025-03-07] MEDS: ASPIRIN 81 MG ECTAB PO SCH (12:32)
[2025-03-07] MEDS: TICAGRELOR 90 MG TAB PO SCH (12:33)
[2025-03-07] MEDS ORDERED: Nursing to Pharmacy Communication SCH (13:30)
[2025-03-07] MEDS: NIFEdipine 10 MG CAP PO SCH ×2 (13:44→20:53)
[2025-03-07] MEDS: ROSUVASTATIN CALCIUM 20 MG TAB PO SCH ×2 (13:44→20:53)
--- NOTE | 2025-03-07 13:57 | History & Physical Report ---
Date of Service March 07, 2025 Assessment & Plan Admission and Anticipated Discharge Date Admission Date: March 07, 2025 History of Present Illness Primary Care Provider: Bao Israel, ANGELA, VISHAL Allergies Allergy/AdvReac Type Severity Reaction Status Date / Time cefdinir Allergy Intermediate Unknown Verified 03/07/25 07:10 erythromycin base Allergy Mild RASH Verified 03/07/25 07:10 tiotropium Allergy Mild RASH Verified 03/07/25 07:10 amoxicillin AdvReac Mild GI UPSET Verified 03/07/25 07:10 Cipro AdvReac Mild vomiting Verified 04/15/16 22:58 ciprofloxacin AdvReac Mild vomiting Verified 03/07/25 07:10 clavulanic acid AdvReac Mild Gastrointestinal Verified 03/07/25 07:10 Upset Quinolones AdvReac Mild CIPRO-VOMIT Verified 03/07/25 07:10 ING Home Medications Medication Instructions Recorded Confirmed Type Lactobacil.acidophilus-Bifido.animalis 1 cap PO QAM 02/25/18 03/07/25 History 5 billion cell sprinkle capsule (Probiotic) aspirin 81 mg tablet,delayed 81 mg PO HS 02/25/18 03/07/25 History release (Prashanth Low Dose Aspirin) soy isoflavone-black cohosh 155 mg PO QAM 02/25/18 03/07/25 History root-magnolia bark 155 mg capsule (Estroven) albuterol sulfate 90 mcg/actuation 2 puff inhalation QID PRN 04/25/23 03/07/25 Rx aerosol inhaler (ProAir HFA) Shortness Of Breath #8.5 grams revefenacin 175 mcg/3 mL solution 175 mcg inhalation DAILY PRN 05/16/23 03/07/25 History for nebulization (Yupelri) Shortness Of Breath Or Wheezing triamcinolone acetonide 0.1 % 1 applic topical BID #80 grams 07/01/23 03/07/25 Rx topical cream calcitriol 0.25 mcg capsule 0.25 mcg PO QAM #90 caps 04/13/24 03/07/25 Rx escitalopram oxalate 5 mg tablet 5 mg PO QAM #90 tabs 05/14/24 03/07/25 Rx (Lexapro) furosemide 20 mg tablet (Lasix) 20 mg PO QAM #90 tabs 05/14/24 03/07/25 Rx pantoprazole 40 mg tablet,delayed 40 mg PO DAILYBB #90 tabs 07/31/24 03/07/25 Rx release (Protonix) doxepin 10 mg capsule 10 mg PO BID PRN itching #180 caps 08/01/24 03/07/25 Rx famotidine 40 mg tablet See Rx Instructions .Route 08/14/24 03/07/25 Rx .COMPLEX #180 tabs carvedilol 6.25 mg tablet 6.25 mg PO BID #180 tabs 09/17/24 03/07/25 Rx potassium chloride 20 mEq 20 meq PO QAM #90 tabs 09/17/24 03/07/25 Rx tablet,extended release(part/cryst) fluticasone furoate 200 1 inh inhalation QAM 90 days #180 10/31/24 03/07/25 Rx mcg-vilanterol 25 mcg/dose ea inhalation powder (Breo Ellipta) omalizumab 150 mg/mL subcutaneous See Rx Instructions .Route 12/14/24 03/07/25 Rx syringe (Xolair) .COMPLEX #6 mL montelukast 10 mg tablet 10 mg PO QPM #90 tabs 01/10/25 03/07/25 Rx levocetirizine 5 mg tablet (Xyzal) 5 mg PO HS #90 tabs 01/18/25 03/07/25 Rx nifedipine 30 mg tablet,extended 30 mg PO QDAY #30 tabs 02/05/25 03/07/25 Rx release rosuvastatin 20 mg tablet (Crestor) 20 mg PO HS #90 tabs 02/05/25 03/07/25 Rx Past Med/Surg History Problem List Crescendo angina (Acute) Moderate persistent asthma Dyslipidemia Depression Osteoporosis (Acute) Hypertension (Chronic) History of pulmonary embolism (Acute) GERD without esophagitis (Acute) Eosinophilic gastroenteritis and colitis (Acute) Degeneration of cervical intervertebral disc (Acute) Dysphagia, pharyngeal phase (Acute) Medical History History of fracture of left hip Elevated serum creatinine Cellulitis of left leg Hypertrophy of both inferior nasal turbinates Chronic sinusitis Abnormal CT scan, chest Sarcoidosis Chronic dyspnea Vitamin D deficiency Surgical History H/O sinus surgery Hx of tonsillectomy History of appendectomy (06/06/12) Hx of appendectomy History of hip surgery History of ankle surgery Family History Grandmother (Paternal) Arthritis Myocardial infarction Aunt Rheumatoid arthritis Breast cancer Family/Other Diabetes Myocardial infarction Father Coronary heart disease Myocardial infarction Mother Myocardial infarction Denies family history of Ovarian cancer Prostate cancer Lung cancer Colorectal cancer Social History Smoking Status: Never smoker Second Hand Exposure: No; Do You Dip or Chew Tobacco: No; Hx Alcohol Use: No Hx Substance Use: No Preferred Language: Nepali Communication Ability: Effective Visual Impairment: Limited Hearing Ability: Normal Furnace Unloader Required: No Beliefs That Will Affect Care: None marital status: Current Living Situation: Spouse and Family Current Living Situation Comment: ,daughter, granddaughter, patient is 's primary caregiver- current occupational status: retired How many Children do You have: 3 Feels Safe at Home: Yes Safety Concerns: Feels Safe At This Time Childhood Exposure to Second-Hand Smoke: No Diet: regular caffeine: Yes during the past year weight has: remained stable Dental Care, Regularly: No Physical Activity Frequency: 1-2 Times per Week Seatbelt Use: always Sunscreen Use: No (Doesn't go out in the sun ) Assistive Devices: Denture - Upper, Denture - Lower and Glasses Results & Data Results & Data Vital Signs (Past 12 Hours) Vital Signs Temp Pulse Resp BP Pulse Ox O2 Del Method 03/07/25 11:45 62 14 145/63 H 94 Room Air 03/07/25 11:15 62 14 145/63 H 94 Room Air 03/07/25 11:00 66 14 149/70 H 94 Room Air 03/07/25 10:30 68 14 138/59 L 94 Room Air 03/07/25 10:15 73 14 161/78 H 94 Room Air 03/07/25 10:00 66 14 144/68 H 94 Room Air 03/07/25 09:45 58 L 14 168/70 H 94 Room Air 03/07/25 09:30 61 14 168/69 H 94 Room Air 03/07/25 09:15 64 14 155/72 H 98 Room Air 03/07/25 09:00 68 14 149/68 H 98 Room Air 03/07/25 08:50 73 16 145/64 H 95 Room Air 03/07/25 06:59 36.8 C 66 16 131/73 90 Room Air Code Status & VTE Plan VTE Prophylaxis Plan VTE Prophylaxis will be ordered: Yes PG Care Time/CCT Total # of Minutes Spent Total Time Spent with Patient: Total time spent is greater than 50% in coordination of care (as documented) at patient's floor/unit and/or counseling patient: Coding
[2025-03-07] MEDS: FAMOTIDINE 40 MG/5 ML 50ML BTL PO SCH (14:18)
[2025-03-07] MEDS: FAMOTIDINE 40 MG TABLET PO SCH (14:22)
[2025-03-07] MEDS: ESCITALOPRAM OXALATE 10 MG TAB PO SCH (14:23)
--- NOTE | 2025-03-07 15:48 | Electrocardiogram Report ---
Test Reason : Blood Pressure : */* mmHG Vent. Rate : 67 BPM Atrial Rate : 67 BPM P-R Int : 176 ms QRS Dur : 100 ms QT Int : 410 ms P-R-T Axes : 71 34 10 degrees QTcB Int : 433 ms Normal sinus rhythm Normal ECG When compared with ECG of 31-Dec-2024 10:55, (unconfirmed) T wave inversion now evident in Inferior leads T wave amplitude has decreased in Lateral leads Confirmed by Narendra Broderick ([id number]) on 03/07/2025 3:47:48 PM Referred By: Toan Ferrer Confirmed By: Narendra Broderick
--- NOTE | 2025-03-07 16:26 | Hospitalist Consultation ---
Date of Consultation March 07, 2025 Assessment & Plan (1) Crescendo angina: Plan Crescendo angina s/p cath Severe mid LAD, PCI Dual antiplatelet therapy placed. GERD without esophagitis: Plan: Continue pantoprazole Hypertension: Plan: Continue carvedilol Moderate persistent asthma: Plan: On albuterol as an outpatient Depression: Plan: Continue Lexapro and doxepin History of pulmonary embolism: dvt prophylaxis per primary team History of Present Illness Attending Physician: Lucas Luna History of Present Illness 74 yo female with PMH noted below is admitted for a cardiac cath due to her history of crescendo angina. Patient tolerated procedure well. Patient currently has no new complaints. Patient found to have severe mid LAD stenosis. Patient had drug diluting stent placed in mid LAD. Patient currently with no symptoms. Allergies Allergy/AdvReac Type Severity Reaction Status Date / Time cefdinir Allergy Intermediate Unknown Verified 03/07/25 07:10 erythromycin base Allergy Mild RASH Verified 03/07/25 07:10 tiotropium Allergy Mild RASH Verified 03/07/25 07:10 amoxicillin AdvReac Mild GI UPSET Verified 03/07/25 07:10 Cipro AdvReac Mild vomiting Verified 04/15/16 22:58 ciprofloxacin AdvReac Mild vomiting Verified 03/07/25 07:10 clavulanic acid AdvReac Mild Gastrointestinal Verified 03/07/25 07:10 Upset Quinolones AdvReac Mild CIPRO-VOMIT Verified 03/07/25 07:10 ING Home Medications Medication Instructions Recorded Confirmed Type Lactobacil.acidophilus-Bifido.animalis 1 cap PO QAM 02/25/18 03/07/25 History 5 billion cell sprinkle capsule (Probiotic) aspirin 81 mg tablet,delayed 81 mg PO HS 02/25/18 03/07/25 History release (Prashanth Low Dose Aspirin) soy isoflavone-black cohosh 155 mg PO QAM 02/25/18 03/07/25 History root-magnolia bark 155 mg capsule (Estroven) albuterol sulfate 90 mcg/actuation 2 puff inhalation QID PRN 04/25/23 03/07/25 Rx aerosol inhaler (ProAir HFA) Shortness Of Breath #8.5 grams revefenacin 175 mcg/3 mL solution 175 mcg inhalation DAILY PRN 05/16/23 03/07/25 History for nebulization (Yupelri) Shortness Of Breath Or Wheezing triamcinolone acetonide 0.1 % 1 applic topical BID #80 grams 07/01/23 03/07/25 Rx topical cream calcitriol 0.25 mcg capsule 0.25 mcg PO QAM #90 caps 04/13/24 03/07/25 Rx escitalopram oxalate 5 mg tablet 5 mg PO QAM #90 tabs 05/14/24 03/07/25 Rx (Lexapro) furosemide 20 mg tablet (Lasix) 20 mg PO QAM #90 tabs 05/14/24 03/07/25 Rx pantoprazole 40 mg tablet,delayed 40 mg PO DAILYBB #90 tabs 07/31/24 03/07/25 Rx release (Protonix) doxepin 10 mg capsule 10 mg PO BID PRN itching #180 caps 08/01/24 03/07/25 Rx famotidine 40 mg tablet See Rx Instructions .Route 08/14/24 03/07/25 Rx .COMPLEX #180 tabs carvedilol 6.25 mg tablet 6.25 mg PO BID #180 tabs 09/17/24 03/07/25 Rx potassium chloride 20 mEq 20 meq PO QAM #90 tabs 09/17/24 03/07/25 Rx tablet,extended release(part/cryst) fluticasone furoate 200 1 inh inhalation QAM 90 days #180 10/31/24 03/07/25 Rx mcg-vilanterol 25 mcg/dose ea inhalation powder (Breo Ellipta) omalizumab 150 mg/mL subcutaneous See Rx Instructions .Route 12/14/24 03/07/25 Rx syringe (Xolair) .COMPLEX #6 mL montelukast 10 mg tablet 10 mg PO QPM #90 tabs 01/10/25 03/07/25 Rx levocetirizine 5 mg tablet (Xyzal) 5 mg PO HS #90 tabs 01/18/25 03/07/25 Rx nifedipine 30 mg tablet,extended 30 mg PO QDAY #30 tabs 02/05/25 03/07/25 Rx release rosuvastatin 20 mg tablet (Crestor) 20 mg PO HS #90 tabs 02/05/25 03/07/25 Rx Patient History Medical History History of fracture of left hip Elevated serum creatinine Cellulitis of left leg Hypertrophy of both inferior nasal turbinates Chronic sinusitis Abnormal CT scan, chest Sarcoidosis Chronic dyspnea Vitamin D deficiency Surgical History H/O sinus surgery Hx of tonsillectomy History of appendectomy (06/06/12) Hx of appendectomy History of hip surgery History of ankle surgery Family History Grandmother (Paternal) Arthritis Myocardial infarction Aunt Rheumatoid arthritis Breast cancer Family/Other Diabetes Myocardial infarction Father Coronary heart disease Myocardial infarction Mother Myocardial infarction Denies family history of Ovarian cancer Prostate cancer Lung cancer Colorectal cancer Social History Smoking Status: Never smoker Second Hand Exposure: No; Do You Dip or Chew Tobacco: No; Hx Alcohol Use: No Hx Substance Use: No Preferred Language: Lao Communication Ability: Effective Visual Impairment: Limited Hearing Ability: Normal Pain Medicine Physician Required: No Beliefs That Will Affect Care: None marital status: Current Living Situation: Spouse and Family Current Living Situation Comment: ,daughter, granddaughter, patient is 's primary caregiver- current occupational status: retired How many Children do You have: 3 Feels Safe at Home: Yes Safety Concerns: Feels Safe At This Time Childhood Exposure to Second-Hand Smoke: No Diet: regular caffeine: Yes during the past year weight has: remained stable Dental Care, Regularly: No Physical Activity Frequency: 1-2 Times per Week Seatbelt Use: always Sunscreen Use: No (Doesn't go out in the sun ) Assistive Devices: Denture - Upper, Denture - Lower and Glasses Review of Systems Constitutional: no fever and no body aches Eyes: no blind spots Ear, Nose, Mouth, Throat: no ear pain Respiratory: no cough Cardiovascular: + chest pain (prior to cath) Gastrointestinal: no abdominal pain Genitourinary: no dysuria Musculoskeletal: no back pain Integumentary: no acne Neurologic: no gait abnormality Psychiatric: no behavioral changes Endocrine: no fatigue Hematologic / Lymphatic: no easy bleeding Allergy / Immunological: no GI upset with certain foods Physical Exam Constitutional: WD/WN, vitals as above Eyes: PERRL, conjunctivae normal, anicteric sclerae ENMT: external ear and nose normal, oropharynx normal Neck: trachea midline, no thyromegaly Respiratory: normal respiratory effort, lungs clear to auscultation Cardiovascular: RRR, no murmur, no edema Gastrointestinal (Abdomen): normal bowel sounds, soft, nontender, no hepatosplenomegaly Musculoskeletal: no cyanosis or clubbing, extremities motor strength 5/5 Skin: no rashes, warm and dry Neurologic: PERRL, EOMI, accommodation nl, no face palsy, no dysarthria Psychiatric: A+Ox3, euthymic affect Lymphatic: no cervical or axillary lymphadenopathy Results & Data Results & Data Vital Signs (Past 12 Hours) Vital Signs Temp Pulse Resp BP Pulse Ox O2 Del Method 03/07/25 15:37 36.2 C L 61 20 134/93 95 Room Air 03/07/25 12:54 36.5 C 63 16 135/77 95 Room Air 03/07/25 11:45 62 14 145/63 H 94 Room Air 03/07/25 11:15 62 14 145/63 H 94 Room Air 03/07/25 11:00 66 14 149/70 H 94 Room Air 03/07/25 10:30 68 14 138/59 L 94 Room Air 03/07/25 10:15 73 14 161/78 H 94 Room Air 03/07/25 10:00 66 14 144/68 H 94 Room Air 03/07/25 09:45 58 L 14 168/70 H 94 Room Air 03/07/25 09:30 61 14 168/69 H 94 Room Air 03/07/25 09:15 64 14 155/72 H 98 Room Air 03/07/25 09:00 68 14 149/68 H 98 Room Air 03/07/25 08:50 73 16 145/64 H 95 Room Air 03/07/25 06:59 36.8 C 66 16 131/73 90 Room Air PG Care Time/CCT Total # of Minutes Spent Total Time Spent with Patient: Total time spent is greater than 50% in coordination of care (as documented) at patient's floor/unit and/or counseling patient: Coding Level of Care Code 12271 IN/OBS CONSULT LVL 4,60M Diagnoses Crescendo angina I20.0
[2025-03-08 06:34] LABS: Hematocrit (blood only) 37.9 % (37.0-47.0); Hemoglobin 12.4 g/dL (12.0-16.0); Immature Granulocytes # (auto) 0.01 K/uL (0.01-0.20); Immature Granulocytes % (auto) 0.2 %; Mean Corpuscular Hemoglobin 30.4 pg (25.0-34.0); Mean Corpuscular Volume 92.9 fL (80.0-100.0); Platelet Count 214 K/uL (130-400); RDW Standard Deviation 45.3 fL (36.4-46.3); Red Blood Count 4.08 M/uL (4.20-5.40); White Blood Count 6.21 K/ul (4.8-10.8)
[2025-03-08 06:57] LABS: Anion Gap 4.0 (3-11); Blood Urea Nitrogen 23.0 mg/dl (6-23); Calcium 9.3 mg/dl (8.6-10.3); Carbon Dioxide 27.0 mmol/L (21-32); Chloride 109.0 mmol/L (98-107); Creatinine Clr Calc Pharmacy 37.2 ml/min; Glucose 98.0 mg/dl (70-99(Fasting)); Potassium 4.2 mmol/L (3.5-5.1); Sodium 140.0 mmol/L (136-145)
[2025-03-08 07:31] VITALS: BP 139/72; RESP 14; TEMP 97.5; O2SAT 94
[2025-03-08 11:27] VITALS: PULSE 70
--- NOTE | 2025-03-08 12:20 | Discharge Summary ---
Date of Service March 08, 2025 Admission HPI Per Admitting Provider Patient was scheduled for cardiac catheterization regarding crescendo angina. She underwent prior stress testing. She had coronary angiography revealing severe disease in mid LAD which was treated with PCI using a single drug-eluting stent. Admission Exam (Per Admitting) Constitutional WD/WN, vitals as above Neck No JVD or bruits Respiratory Clear to auscultation bilaterally Cardiovascular Regular rate and rhythm, no edema Musculoskeletal no cyanosis or clubbing, extremities motor strength 5/5 Neurologic Cognition intact. Speech is fluent. No focal deficits. Psychiatric A+Ox3, euthymic affect Specialty Data Cardiology Severe LAD stenosis status post PCI with a single drug-eluting stent. See catheter report for details. Mild nonocclusive disease elsewhere. Discharge Data Consultations 03/07/25 08:42 Consult Cardiac Rehabilitation Routine Consult Hospitalist Routine Procedures Performed Operation Date: 03/07/25 08:00 Actual Procedures p Cineradiography w/Routine Exam - Toan Ferrer MD, PhD p Cath, Coronaries ONLY (no LV) - Toan Ferrer MD, PhD p Drug Eluting Stent SGl Vessel - Toan Ferrer MD, PhD Hospital Course (1) Crescendo angina: Status post PCI with drug-eluting stent. She will remain on dual antiplatelet therapy with aspirin 81 mg daily and Brilinta 90 mg p.o. twice daily. I recommend she participate in cardiac rehab. Guideline directed medical therapy for secondary prevention of coronary disease includes rosuvastatin, aspirin, and carvedilol. (2) Dyslipidemia: Patient is high risk. High intensity statin therapy ongoing with rosuvastatin 20 mg daily. (3) Hypertension: Blood pressure is adequately controlled. Continue nifedipine 30 mg daily, and carvedilol 6.25 mg p.o. twice daily. Plan Patient completed diagnostic coronary angiography. Tolerated the addition of her antiplatelet agents. No events overnight. Mild ecchymosis at the right radial access site without significant bleeding. At this time she is deemed appropriate for discharge. She will follow-up in the cardiology office. We will be referring her to cardiac rehab as well. Coding Level of Care Code 95737 INP/OBS DISCH >30 MIN Diagnoses Crescendo angina I20.0 Dyslipidemia E78.5 Essential hypertension I10 Hypertension type: essential hypertension
== END 2025-03-08 12:16 | disposition home or self-care (01) | DRG 322 ==
LOC: CC 06:49 → 4W 08:42 → SUATTDRO 08:42
PROC: CLB.CCO (2025-03-07 08:00)